=== PATIENT | female | born 1975 | race Caucasian/White ===

== ENCOUNTER 2017-06-24 20:39 | Emergency (ER) | payer BC ==
[~2017-06-24] VITALS: Ht 165.1 cm; Wt 56.8 kg
[~2017-06-24 20:39] MED LIST: AMT50 PO; CALCTAB7 PO; CLON0.1D7 TD; CLON0.5T20 PO; CYCL5TAB PO; KPP/250 PO; ONDA4TAB7 SL; PANT1TAB3 PO; PREG150C PO; PRM/625 PO; [UNRECOGNIZED DRUG - CODE] PO
[2017-06-24 20:42] VITALS: TEMP 36.8; Ht 165.1 cm; Wt 56.8 kg
[2017-06-24] MEDS ORDERED: ONDANSETRON INJ 2 MG/ML 2 ML VIAL IV STA (21:14)
[2017-06-24] MEDS ORDERED: SODIUM CHLORIDE 0.9% 1000ML 1,000 ML IV STA (21:14)
[2017-06-24] MEDS ORDERED: FENTANYL CITRATE INJ 50 MCG/1 ML 2 ML VIAL IV PRN (21:15)
[2017-06-24 22:06] LABS: ALT/SGPT 16 U/L (12-78); BLOOD UREA NITROGEN 10 mg/dl (7-18); BUN/CREATININE RATIO 15.5 (10-20); CALCIUM 9.1 mg/dl (8.5-10.1); CARBON DIOXIDE 27 mmol/L (21-32); CHLORIDE 103 mmol/L (98-107); CREATININE 0.65 mg/dl (0.60-1.20); GLUCOSE 92 mg/dl (70-99); POTASSIUM 3.6 mmol/L (3.5-5.1); SODIUM 137 mmol/L (136-145)
[2017-06-24 22:09] LABS: ALKALINE PHOSPHATASE 130 U/L (45-117); AST/SGOT 17 U/L (15-37)
[2017-06-24 22:10] LABS: URINE APPEARANCE CLEAR (CLEAR); URINE BILIRUBIN NEG (NEG); URINE COLOR YELLOW; URINE EPITHELIAL CELL AUTO 0-5 /lpf (0-5); URINE NITRITE NEG (NEG); URINE PH 7.5 (4.5-7.5); UROBILINOGEN NEG (NEG); ZZUR CULT IF INDIC CLEAN CATCH NO
[2017-06-24 22:17] LABS: HEMATOCRIT 29.5 % (37-47); MANUAL MICROSCOPIC REQUIRED? NO; MEAN CELL VOLUME 61.1 fL (80-100); MEAN CORPUSCULAR HGB CONC 27.8 g/dl (32-36); PLATELET COUNT 519 K/uL (130-400); RED BLOOD COUNT 4.83 M/uL (4.2-5.4); REVIEW REQ? NO; WHITE BLOOD COUNT 9.85 K/uL (4.8-10.8)
[2017-06-24 22:24] LABS: ANISOCYTOSIS PRESENT; BASO % 0.3 %; BASO ABS # 0.03 K/uL (0-0.2); COMPLETE YES; EOS % 1.5 %; HYPOCHROMIA PRESENT; IG% 0.1 %; LYMPH % 20.5 %; LYMPH ABS # 2.02 K/uL (1.2-3.4); MICROCYTOSIS PRESENT; MONO % 9.2 %; NEUT % 68.4 %
[2017-06-24] MEDS ORDERED: MoRPHine SULFATE 4 MG/ML 1 ML CARP\\VIAL IV STA (23:26)
[2017-06-24] MEDS ORDERED: TRAM-10 PO (23:30)
[2017-06-24] MEDS ORDERED: FERR1TAB13 PO (23:30)
--- NOTE | 2017-06-24 23:32 | EMERGENCY ROOM VISIT NOTE ---
History Report prepared by Eric: Shanice Brewster Under the Supervision of: Dr. Ildefonso Greenfield D.O. First contact with patient: 21:06 Chief Complaint: ABDOMINAL PAIN Stated Complaint: SEVERE ABD PAIN,VOMIT,IBARRA, BACK AND CHEST PAIN Nursing Triage Summary: pt states n/v and loss of appetite for 1 week. denies diarrhea now but states she had diarrhea 1 week ago. pt also c/o ibarra. states pain of 10/10 to bilateral lower abdomen. History of Present Illness The patient is a 41 year old female who presents to the Emergency Room with complaints of intermittent abdominal pain beginning 1 week ago. The patient states that she has been feeling sick intermittently throughout the week. She reports that she has had nausea, vomiting, diarrhea that has resolved, back pain , and abdominal cramping. She notes that she has had a decreased appetite. The patient denies any sick contacts and recent antibiotics. She reports that 3 days ago she had dysuria and thought that she might have a UTI but after drinking fluids her symptoms resolved. Source of History: patient Onset: 1 week ago Position: abdomen Timing: intermittent Associated Symptoms: + nausea, + vomiting, + back pain, + diarrhea Note: Pt denies sick contacts. Review of Systems See HPI for pertinent positives & negatives. A total of 10 systems reviewed and were otherwise negative. Past Medical & Surgical Medical Problems: (1) Gastroenteritis Family History No pertinent family history stated. Social History Smoking Status: Never Smoker Marital Status: Housing Status: lives with significant other Occupation Status: employed Current/Historical Medications Scheduled Ferrous Sulfate (Kp Ferrous Sulfate), 1 TAB PO BID Scheduled PRN Tramadol (Ultram), 100 MG PO Q4H PRN for Pain Allergies Coded Allergies: Penicillins (Verified Allergy, Mild, 06/24/17) Prochlorperazine (Verified Allergy, Mild, 06/24/17) Sulfa Drugs (Verified Allergy, Mild, 06/24/17) Sulfamethoxazole (Verified Allergy, Mild, 06/24/17) Trimethoprim (Verified Allergy, Mild, 06/24/17) Latex1 -Allergic Contact Dermititis (Verified Adverse Reaction, Intermediate, LOCAL RASH, ITCHINESS, 06/24/17) Clarithromycin (Verified Adverse Reaction, Mild, Unknown rxn, 06/24/17) Physical Exam Vital Signs Date Time Temp Pulse Resp B/P (MAP) Pulse Ox O2 Delivery O2 Flow Rate FiO2 12/16/17 20:42 36.8 87 18 150/78 98 Room Air Physical Exam CONSTITUTIONAL/VITAL SIGNS: Reviewed / noted above. GENERAL: Non-toxic in appearance. INTEGUMENTARY: Warm, dry, and [place]. HEAD: Normocephalic. EYES: without scleral icterus or trauma. ENT/OROPHARYNX: clear and moist. LYMPHADENOPATHY/NECK: Is supple without lymphadenopathy or meningismus. RESPIRATORY: Lungs clear and equal. CARDIOVASCULAR: Regular rate and rhythm. GI/ABDOMEN: Soft and mild diffuse abdominal tenderness. No organomegaly or pulsatile mass. No rebound or guarding. Normal bowel sounds. EXTREMITIES: Warm and well perfused. BACK: No CVA tenderness. NEUROLOGICAL: Intact without focal deficits. PSYCHIATRIC: normal affect. MUSCULOSKELETAL: Normally developed with good muscle tone. Medical Decision & Procedures Laboratory Results 06/24/17 21:30 Red Blood Count 4.83, Mean Corpuscular Volume 61.1, Mean Corpuscular Hemoglobin 17.0, Mean Corpuscular Hemoglobin Concent 27.8, Mean Platelet Volume 9.0, Neutrophils (%) (Auto) 68.4, Lymphocytes (%) (Auto) 20.5, Monocytes (%) (Auto) 9.2, Eosinophils (%) (Auto) 1.5, Basophils (%) (Auto) 0.3, Neutrophils # (Auto) 6.73, Lymphocytes # (Auto) 2.02, Monocytes # (Auto) 0.91, Eosinophils # (Auto) 0.15, Basophils # (Auto) 0.03 06/24/17 21:30 Test 06/24/17 21:30 White Blood Count 9.85 K/uL (4.8-10.8) Red Blood Count 4.83 M/uL (4.2-5.4) Hemoglobin 8.2 g/dL (12.0-16.0) Hematocrit 29.5 % (37-47) Mean Corpuscular Volume 61.1 fL (80-100) Mean Corpuscular Hemoglobin 17.0 pg (25-34) Mean Corpuscular Hemoglobin Concent 27.8 g/dl (32-36) Platelet Count 519 K/uL (130-400) Mean Platelet Volume 9.0 fL (7.4-10.4) Neutrophils (%) (Auto) 68.4 % Lymphocytes (%) (Auto) 20.5 % Monocytes (%) (Auto) 9.2 % Eosinophils (%) (Auto) 1.5 % Basophils (%) (Auto) 0.3 % Neutrophils # (Auto) 6.73 K/uL (1.4-6.5) Lymphocytes # (Auto) 2.02 K/uL (1.2-3.4) Monocytes # (Auto) 0.91 K/uL (0.11-0.59) Eosinophils # (Auto) 0.15 K/uL (0-0.5) Basophils # (Auto) 0.03 K/uL (0-0.2) RDW Standard Deviation 42.9 fL (36.4-46.3) RDW Coefficient of Variation 19.5 % (11.5-14.5) Immature Granulocyte % (Auto) 0.1 % Immature Granulocyte # (Auto) 0.01 K/uL (0.00-0.02) Hypochromasia PRESENT Anisocytosis PRESENT Microcytosis PRESENT Urine Color YELLOW Urine Appearance CLEAR (CLEAR) Urine pH 7.5 (4.5-7.5) Urine Specific [place] 1.010 (1.000-1.030) Urine Protein NEG (NEG) Urine Glucose (UA) NEG (NEG) Urine Ketones NEG (NEG) Urine Occult Blood NEG (NEG) Urine Nitrite NEG (NEG) Urine Bilirubin NEG (NEG) Urine Urobilinogen NEG (NEG) Urine Leukocyte Esterase TRACE (NEG) Urine WBC (Auto) 1-5 /hpf (0-5) Urine RBC (Auto) 0-4 /hpf (0-4) Urine Hyaline Casts (Auto) 0 /lpf (0-5) Urine Epithelial Cells (Auto) 0-5 /lpf (0-5) Urine Bacteria (Auto) NEG (NEG) Anion Gap 7.0 mmol/L (3-11) Est Creatinine Clear Calc Drug Dose 104.2 ml/min Estimated GFR () 129.6 Estimated GFR (Non- 111.8 BUN/Creatinine Ratio 15.5 (10-20) Calcium Level 9.1 mg/dl (8.5-10.1) Total Bilirubin 0.3 mg/dl (0.2-1) Direct Bilirubin < 0.1 mg/dl (0-0.2) Aspartate Amino Transf (AST/SGOT) 17 U/L (15-37) Alanine Aminotransferase (ALT/SGPT) 16 U/L (12-78) Alkaline Phosphatase 130 U/L (45-117) Total Protein 7.9 gm/dl (6.4-8.2) Albumin 3.7 gm/dl (3.4-5.0) Lipase 147 U/L (73-393) Medications Administered Medications (Trade) Dose Ordered Sig/Demetria Route Start Time Stop Time Status Last Admin Dose Admin Sodium Chloride 1,000 ml @ 999 mls/hr Q1H1M STAT IV 06/24/17 21:14 06/24/17 22:14 DC 06/24/17 21:46 999 MLS/HR Ondansetron HCl (Zofran Inj) 4 mg NOW STAT IV 06/24/17 21:14 06/24/17 21:17 DC 06/24/17 21:44 4 MG Fentanyl Citrate (Fentanyl Inj) 50 mcg Q1H PRN IV 06/24/17 21:15 07/08/17 21:14 06/24/17 21:43 50 MCG ED Course 6: Previous medical records were reviewed. The patient was evaluated in room B3. A complete history and physical examination was performed. 4: Zofran 4mg IV, Sodium Chloride 1000 ml @ 999 mls/hr IV, Fentanyl Inj 50mcg PRN IV pain. 2322: I reevaluated and updated the patient. 2326: Morphine Sulfate 4mg IV. 2334: On reevaluation, the patient is doing well. I discussed the results and findings with the patient. She verbalized agreement of the treatment plan. The patient was discharged home. Medical Decision Differential diagnosis: Etiologies such as gastroenteritis, food borne illness, infections, appendicitis , diverticulitis, inflammatory bowel disease, obstruction, GI bleed, biliary pathology, as well as others were entertained. This is a 41-year-old female who presents to the ED with a chief complaint of nausea, vomiting and diarrhea. The patient reports that she has had the symptoms for about a week. She states that her diarrhea and the last week that she developed vomiting since that time. She has had about 3 episodes per day. She has had decreased oral intake. She also reports some abdominal cramps. She denies any recent sick contacts. No recent antibiotics. She has history of hysterectomy. She also reports migraines and fibromyalgia. She denies any blood in her stools or black tarry stools. Denies any areas of bleeding. Her exam was unremarkable with exception of some mild diffuse abdominal tenderness. She reports most of her discomfort in the suprapubic area. She states that she did have some urinary symptoms earlier this week but it resolved after a show. A urinalysis does not show obvious infection. Hemoglobin is 8.2. Complete metabolic panel was normal. Lipase was normal. The anemia is a microcytic and hypochromic. This is consistent with an iron deficiency anemia. She denied having any blood or black tarry stools. She was started on iron. She was given IV fentanyl and IV morphine for discomfort. Because the pain is primarily in the suprapubic area and she has had hysterectomy, I did not feel imaging studies would be needed at this time although the patient was offered them. She declined them at this time as well. The patient will be discharged with a prescription for iron and Ultram for her discomfort. She is told to follow-up with her PCP for further evaluation of the iron deficiency anemia. Medication Reconcilliation Current Medication List: was personally reviewed by me Blood Pressure Screening Patient's blood pressure: Elevated blood pressure Blood pressure disposition: Elevated BP felt to be situational Impression Primary Impression: Iron deficiency anemia Additional Impressions: Pelvic pain Vomiting Scribe Attestation The scribe's documentation has been prepared under my direction and personally reviewed by me in its entirety. I confirm that the note above accurately reflects all work, treatment, procedures, and medical decision making performed by me. Departure Information Dispostion Home / Self-Care Prescriptions Tramadol (Ultram) 50 Mg Tab 100 MG PO Q4H Y for Pain, #30 TAB Prov: Ildefonso Greenfield D.O. 06/24/17 Ferrous Sulfate (KP FERROUS SULFATE) 325 Mg Tab 1 TAB PO BID for 30 Days, #60 TAB 3 Refills Prov: Ildefonso Greenfield D.O. 06/24/17 Referrals RV. Alcantara MD (PCP) Patient Instructions ED Anemia Iron Deficiency, [facility] Additional Instructions Take iron as prescribed for anemia. Ultram as prescribed for pain. Follow-up with your doctor for recheck this week and further evaluation of your anemia and symptoms. Return for worsening or new concerns. Problem Qualifiers
[2017-06-24 23:42] VITALS: BP 118/78; PULSE 76; O2SAT 98
== END 2017-06-24 23:42 | disposition home or self-care (01) ==
LOC: C.EDB 20:40
DX: D50.9 Iron deficiency anemia, unspecified (principal); R10.2 Pelvic and perineal pain; R11.10 Vomiting, unspecified; Z87.19 Personal history of other diseases of the digestive system; Z88.0 Allergy status to penicillin; Z88.2 Allergy status to sulfonamides; Z88.8 Allergy status to other drugs, medicaments and biological substances; Z91.040 Latex allergy status

== ENCOUNTER 2017-11-03 00:18 | Inpatient (IN) | payer BC, OTHER ==
[~2017-11-03] VITALS: Ht 165.1 cm; Wt 58.7 kg
[2017-11-03] VITALS (17 sets, daily range): BP systolic 103–125; BP diastolic 60–84; PULSE 72–89; TEMP 36.4–37.1; O2SAT 94–99; BMI 20.9
[~2017-11-03 00:18] MED LIST changes: -AMT50 PO; -CALCTAB7 PO; -CLON0.1D7 TD; -CLON0.5T20 PO; -CYCL5TAB PO; +FERR1TAB13 PO; -KPP/250 PO; -ONDA4TAB7 SL; -PANT1TAB3 PO; -PREG150C PO; -PRM/625 PO; +TRAM-10 PO; -[UNRECOGNIZED DRUG - CODE] PO
[2017-11-03] MEDS ORDERED: FENTANYL CITRATE INJ 50 MCG/1 ML 2 ML VIAL IV STA ×2 (00:42→01:55)
[2017-11-03] MEDS ORDERED: SODIUM CHLORIDE 0.9% 1000ML 1,000 ML IV STA (00:42)
[2017-11-03] MEDS ORDERED: ONDANSETRON INJ 2 MG/ML 2 ML VIAL IV STA ×2 (00:42)
[2017-11-03] MEDS ORDERED: FERR1TAB23 PO (00:54)
[2017-11-03] MEDS ORDERED: FEXO1TAB49 PO (00:54)
[2017-11-03] MEDS ORDERED: ONDA4TAB65 PO (00:54)
[2017-11-03] MEDS ORDERED: HYDR25CA PO (00:54)
--- NOTE | 2017-11-03 00:57 | EMERGENCY ROOM VISIT NOTE ---
History Report prepared by Eric: Vandana Morales Under the Supervision of: Dr. Filemon Weston M.D. First contact with patient: 00:33 Chief Complaint: VOMITING Stated Complaint: NAUSEA,VOMITING,FEVER,SEVERE BACK PAIN History of Present Illness The patient is a 41 year old female who presents to the Emergency Room with complaints of persistent back pain for five days. She currently rates her pain a 9/10 in severity. She reports her pain is worsened with movement. She notes that her back pain began first and then she developed abdominal pain two days ago. She reports nausea and vomiting that began two days ago as well. She notes that she has had fevers of 102 Fahrenheit for two days. She has taken Zofran, Tylenol, and Aleve. She states that she was seen by her PCP two days ago. She had lab tests done and a UA, though she has not been informed of the results. She states that she had labs done at [facility]. She denies any diarrhea, urinary symptoms, leg swelling, or rashes. She has not been able to pass stool for two days. She reports loss of appetite. She denies any history of stomach problems. She has a history of laparoscopic surgery for cysts and a hysterectomy. She has a history of depression and anxiety. She denies any history of back surgeries. She denies any sick contacts. She reports a history of fibromyalgia. She reports taking iron supplements. Source of History: patient Onset: five days Position: back Symptom Intensity: 9/10 Timing: other (persistent) Modifying Factors (Worsening): movement Associated Symptoms: + fevers, + nausea, + vomiting, + abdominal pain, No diarrhea, No urinary symptoms, No rash Note: Denies leg swelling. Notes constipation and loss of appetite. Review of Systems See HPI for pertinent positives & negatives. A total of 10 systems reviewed and were otherwise negative. Past Medical & Surgical Medical Problems: (1) Anxiety (2) Depression (3) Fibromyalgia (4) Gastroenteritis (5) laparoscopic surgery for cysts Surgical Problems: (1) H/O: hysterectomy Family History FHx: cancer Social History Smoking Status: Never Smoker Smokeless Tobacco Use: No Alcohol Use: none Drug Use: none Marital Status: Housing Status: lives with significant other Occupation Status: employed Current/Historical Medications Scheduled Ferrous Sulfate (Iron), 325 MG PO BID Hydroxyzine Pamoate (Vistaril), 25 MG PO DAILY Scheduled PRN Fexofenadine Hcl (Samreen Allergy), 180 MG PO DAILY PRN for Seasonal Allergies Ondansetron Hcl (Zofran), 4 MG PO BID PRN for Nausea or Vomiting Allergies Coded Allergies: Penicillins (Verified Allergy, Mild, 11/03/17) Prochlorperazine (Verified Allergy, Mild, 11/03/17) Sulfa Drugs (Verified Allergy, Mild, 11/03/17) Sulfamethoxazole (Verified Allergy, Mild, 11/03/17) Trimethoprim (Verified Allergy, Mild, 11/03/17) Latex1 -Allergic Contact Dermititis (Verified Adverse Reaction, Intermediate, LOCAL RASH, ITCHINESS, 11/03/17) Clarithromycin (Verified Adverse Reaction, Mild, Unknown rxn, 06/24/17) Physical Exam Vital Signs Date Time Temp Pulse Resp B/P (MAP) Pulse Ox O2 Delivery O2 Flow Rate FiO2 11/03/17 01:48 92 16 130/84 93 Room Air 11/03/17 00:25 36.8 111 22 166/87 99 Room Air Physical Exam GENERAL: Patient is anxious-appearing and in moderate distress. Dehydrated. EYES: No scleral icterus, unremarkable pupils. ENT: Mucous membranes dry, no nasal congestion. NECK: No masses appreciated, no meningismus, trachea is midline. RESPIRATORY: No dyspnea. Clear to auscultation and equal bilaterally. No wheeze , no rhonchi. CARDIOVASCULAR: Tachycardic rate and regular rhythm. No murmurs, rubs, gallops appreciated. GASTROINTESTINAL: Abdomen soft, LUQ and RLQ tenderness 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, no peritonitis. Bowel sounds positive. No masses appreciated. BACK: Tenderness 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 to paraspinal muscles and lumbar spine. Left CVA tenderness. EXTREMITIES: Normal motion all extremities, no cyanosis, no edema. NEUROLOGIC: Alert and oriented, no acute motor or sensory deficits, no focal weakness, cranial nerves grossly intact. SKIN: No rash, no jaundice, no diaphoresis. Medical Decision & Procedures ER Provider Diagnostic Interpretation: Radiology results and stated below per my review and radiologist interpretation: CT ABDOMEN & PELVIS With Contrast: Suggestion of gastric mucosal thickening and enhancement. Consider gastritis versus underdistention. No urolithiasis or hydronephrosis. Appendix is difficult to visualize, though there is no evidence of acute inflammation right lower quadrant. Prior hysterectomy. Radiologist: Daniel Moy DO Study ready at 01:48 and initial results transmitted at 02:04 Laboratory Results 11/03/17 00:40 Red Blood Count 4.48, Mean Corpuscular Volume 59.6, Mean Corpuscular Hemoglobin 16.7, Mean Corpuscular Hemoglobin Concent 28.1, Mean Platelet Volume 8.7, Neutrophils (%) (Auto) 78.5, Lymphocytes (%) (Auto) 14.0, Monocytes (%) (Auto) 5.9, Eosinophils (%) (Auto) 1.2, Basophils (%) (Auto) 0.3, Neutrophils # (Auto) 10.68, Lymphocytes # (Auto) 1.90, Monocytes # (Auto) 0.80, Eosinophils # (Auto) 0.16, Basophils # (Auto) 0.04 11/03/17 00:40 Test 11/03/17 00:40 11/03/17 00:50 White Blood Count 13.60 K/uL (4.8-10.8) Red Blood Count 4.48 M/uL (4.2-5.4) Hemoglobin 7.5 g/dL (12.0-16.0) Hematocrit 26.7 % (37-47) Mean Corpuscular Volume 59.6 fL (80-100) Mean Corpuscular Hemoglobin 16.7 pg (25-34) Mean Corpuscular Hemoglobin Concent 28.1 g/dl (32-36) Platelet Count 708 K/uL (130-400) Mean Platelet Volume 8.7 fL (7.4-10.4) Neutrophils (%) (Auto) 78.5 % Lymphocytes (%) (Auto) 14.0 % Monocytes (%) (Auto) 5.9 % Eosinophils (%) (Auto) 1.2 % Basophils (%) (Auto) 0.3 % Neutrophils # (Auto) 10.68 K/uL (1.4-6.5) Lymphocytes # (Auto) 1.90 K/uL (1.2-3.4) Monocytes # (Auto) 0.80 K/uL (0.11-0.59) Eosinophils # (Auto) 0.16 K/uL (0-0.5) Basophils # (Auto) 0.04 K/uL (0-0.2) RDW Standard Deviation 37.3 fL (36.4-46.3) RDW Coefficient of Variation 17.3 % (11.5-14.5) Immature Granulocyte % (Auto) 0.1 % Immature Granulocyte # (Auto) 0.02 K/uL (0.00-0.02) Hypochromasia PRESENT Microcytosis PRESENT Ovalocytes 1+ Est Creatinine Clear Calc Drug Dose 70.1 ml/min Estimated GFR () 85.3 Estimated GFR (Non- 73.6 BUN/Creatinine Ratio 18.9 (10-20) Calcium Level 9.6 mg/dl (8.5-10.1) Total Bilirubin 0.2 mg/dl (0.2-1) Direct Bilirubin < 0.1 mg/dl (0-0.2) Aspartate Amino Transf (AST/SGOT) 19 U/L (15-37) Alanine Aminotransferase (ALT/SGPT) 25 U/L (12-78) Alkaline Phosphatase 186 U/L (45-117) Total Protein 8.8 gm/dl (6.4-8.2) Albumin 3.5 gm/dl (3.4-5.0) Lipase 60 U/L (73-393) Bedside Hemoglobin 9.2 g/dl (12.0-16.0) Bedside Hematocrit 27 % (37-47) Bedside Sodium 138 mEq/L (135-144) Bedside Potassium 3.5 mEq/L (3.3-5.0) Bedside Chloride 99 mEq/L (101-112) Bedside Total CO2 26 mEq/l (24-31) Anion Gap 18.0 mmol/L (16-25) Bedside Blood Urea Nitrogen 18 mg/dl (7-18) Bedside Creatinine 0.9 mg/dl (0.6-1.3) Bedside Glucose (other) 120 mg/dl (70-99) Bedside Ionized Calcium (Jass) 1.15 mmol/l (1.12-1.32) Laboratory results as reviewed by me. Medications Administered Medications (Trade) Dose Ordered Sig/Demetria Route Start Time Stop Time Status Last Admin Dose Admin Ondansetron HCl (Zofran Inj) 4 mg NOW STAT IV 11/03/17 00:42 11/03/17 00:44 DC 11/03/17 01:02 4 MG Fentanyl Citrate (Fentanyl Inj) 75 mcg NOW STAT IV 11/03/17 00:42 11/03/17 00:44 DC 11/03/17 01:02 75 MCG Sodium Chloride 1,000 ml @ 999 mls/hr Q1H1M STAT IV 11/03/17 00:42 11/03/17 01:42 DC 11/03/17 01:02 999 MLS/HR Ondansetron HCl (Zofran Inj) 4 mg NOW STAT IV 11/03/17 00:42 11/03/17 00:44 DC 11/03/17 01:02 4 MG Fentanyl Citrate (Fentanyl Inj) 50 mcg NOW STAT IV 11/03/17 01:55 11/03/17 01:56 DC 11/03/17 02:06 50 MCG Lorazepam (Ativan Inj) 1 mg NOW STAT IV 11/03/17 01:55 11/03/17 01:56 DC 11/03/17 02:06 1 MG Pantoprazole Sodium 40 mg/ Syringe 10 ml @ 5 mls/min NOW ONCE IV 11/03/17 03:00 11/03/17 03:01 DC 11/03/17 03:51 5 MLS/MIN ED Course 0035: The patient was evaluated in room B11B. A complete history and physical exam was performed. 0252: I reassessed the patient at this time. She is somnolent. She currently rates her pain a 6/10 in severity and describes it as stabbing through to her back. I discussed the results and treatment plan with the patient. I spoke with her regarding her anemia; she denies it being this low in the past. I answered all pertaining questions that she had. She does not feel comfortable going home. She expressed understanding and verbalized agreement. The patient will be further evaluated. 0300: I spoke with Dr. Alejo, [facility] hospitalist. We discussed the patient's case. The patient will be evaluated by the [facility] for further management. Medical Decision Differential: Appendicitis, Diverticulitis, PUD/Gastritis, Biliary Pathology, UTI, Pyelonephritis, Renal Colic, Bowel Obstruction, Aortic Pathology, Acute Coronary Syndrome, amongst other pathologies entertained. 41 yr old quite anxious and uncomfortable female arrives for evaluation of persistent nausea, vomiting, abdominal pain, and back pain. Somewhat vague exam with pain LUQ and RLQ, as well as left CVA TTP and TTP over bilateral lumbar paraspinal muscles. More clear is that she appears dehydrated and quite uncomfortable. With persistent symptoms, reported fevers it was felt reasonable going ahead with CT which revealed gastric thickening. Continues to complain of pain despite IV fentanyl x 2 and requiring NC O2, as well as nausea finally improving post IV ativan and IV zofran ineffective. Her HgB returned quite low and trending down compared to previous labs, and I suspect it will be even lower once she is no longer dehydrated. She denies black stools but admits she does not think stool has ever been checked for blood. I did opt to give her IV Protonix and reviewed with hospitalist who note they will take further evaluation of patient. Patient and comfortable with this plan. Medication Reconcilliation Current Medication List: was personally reviewed by me Blood Pressure Screening Patient's blood pressure: Elevated blood pressure monitored by hospitalist Consults Time Called: 0255 Consulting Physician: Dr. Alejo [facility] hospitalist Returned Call: [address] Alejo [facility] hospitalist. We discussed the patient's case. The patient will be evaluated by the [facility] for further management. Impression Primary Impression: Intractable abdominal pain Additional Impressions: Gastritis Anemia Intractable vomiting Dehydration Scribe Attestation The scribe's documentation has been prepared under my direction and personally reviewed by me in its entirety. I confirm that the note above accurately reflects all work, treatment, procedures, and medical decision making performed by me. Departure Information Dispostion Being Evaluated By Hospitalist Referrals RV. Alcantara MD (PCP) Patient Instructions [facility] Problem Qualifiers
[2017-11-03] MEDS ORDERED: OPTIRAY 320 IV PRN (01:00)
[2017-11-03 01:03] LABS: ISTAT CREATININE 0.9 mg/dl (0.6-1.3); ISTAT IONIZED CALCIUM 1.15 mmol/l (1.12-1.32); ISTAT POTASSIUM 3.5 mEq/L (3.3-5.0)
[2017-11-03 01:17] LABS: ALBUMIN 3.5 gm/dl (3.4-5.0); ALT/SGPT 25 U/L (12-78); AST/SGOT 19 U/L (15-37); BLOOD UREA NITROGEN 18 mg/dl (7-18); CALCIUM 9.6 mg/dl (8.5-10.1); CARBON DIOXIDE 26 mmol/L (21-32); CREATININE 0.97 mg/dl (0.60-1.20); GLUCOSE 116 mg/dl (70-99); HEMATOCRIT 26.7 % (37-47); HEMOGLOBIN 7.5 g/dL (12.0-16.0); LIPASE 60 U/L (73-393); MEAN CELL VOLUME 59.6 fL (80-100); MEAN CORPUSCULAR HEMOGLOBIN 16.7 pg (25-34); MEAN CORPUSCULAR HGB CONC 28.1 g/dl (32-36); MEAN PLATELET VOLUME 8.7 fL (7.4-10.4); PLATELET COUNT 708 K/uL (130-400); POTASSIUM 3.4 mmol/L (3.5-5.1); RED CELL DISTRIBUTION WIDTH CV 17.3 % (11.5-14.5); RED CELL DISTRIBUTION WIDTH SD 37.3 fL (36.4-46.3); SODIUM 136 mmol/L (136-145)
[2017-11-03 01:19] LABS: ALKALINE PHOSPHATASE 186 U/L (45-117); TOTAL PROTEIN 8.8 gm/dl (6.4-8.2)
[2017-11-03 01:23] LABS: BASO % 0.3 %; BASO ABS # 0.04 K/uL (0-0.2); EOS % 1.2 %; EOS ABS # 0.16 K/uL (0-0.5); IG# 0.02 K/uL (0.00-0.02); MONO % 5.9 %; NEUT % 78.5 %; NEUT ABS # 10.68 K/uL (1.4-6.5)
[2017-11-03] MEDS ORDERED: LORAZEPAM 2 MG/ML 1 ML VIAL IV STA (01:55)
[2017-11-03] MEDS ORDERED: PANTOprazole INJ 40 MG in SYRINGE 0 ML IV ONE (03:00)
--- NOTE | 2017-11-03 03:56 | History and Physical ---
History & Physical Date & Time of Service: Nov 03, 2017 at 03:35 Chief Complaint: Nausea,Vomiting,Fever,Severe Back Pain Primary Care Physician: RV. Alcantara MD History of Present Illness Source: patient, hospital records 41 y/o F Hx migraines, chronic pain, iron-deficient anemia. Pt states she has had lower pain for over one week. She states that 2 days ago she also developed abdominal pain, nausea and vomiting. She reports a fever of 102 the prior day. She has not complained of CP, SOB, dysuria or rigors. She is afebrile on arrival to the ER. A CT of the abdomen suggested gastritis and was otherwise negative. Initial labs are notable for a hemoglobin of 7.5, elevated platelets, mild leukocytosis, mild hypokalemia. Past Medical/Surgical History 1) Migraine headaches 2) Depression/anxiety 3) Iron-deficient anemia 4) Chronic pain Family History FHx: cancer CVA - paternal grandmother Mother with HTN Social History Denies smoking or drinking Smoking Status: Never Smoker Smokeless Tobacco Use: No Drug Use: none Marital Status: Housing status: lives with family Occupational Status: employed Immunizations History of Influenza Vaccine: No History of Tetanus Vaccine?: Yes History of Pneumococcal: No History of Hepatitis B Vaccine: Unknown Allergies Coded Allergies: Penicillins (Verified Allergy, Mild, 11/03/17) Prochlorperazine (Verified Allergy, Mild, 11/03/17) Sulfa Drugs (Verified Allergy, Mild, 11/03/17) Sulfamethoxazole (Verified Allergy, Mild, 11/03/17) Trimethoprim (Verified Allergy, Mild, 11/03/17) Latex1 -Allergic Contact Dermititis (Verified Adverse Reaction, Intermediate, LOCAL RASH, ITCHINESS, 11/03/17) Clarithromycin (Verified Adverse Reaction, Mild, Unknown rxn, 06/24/17) Home Medications Scheduled Ferrous Sulfate (Iron), 325 MG PO BID Hydroxyzine Pamoate (Vistaril), 25 MG PO DAILY Scheduled PRN Fexofenadine Hcl (Samreen Allergy), 180 MG PO DAILY PRN for Seasonal Allergies Ondansetron Hcl (Zofran), 4 MG PO BID PRN for Nausea or Vomiting Review of Systems Constitutional: + fever, + weakness, No chills, No sweats Eyes: No worsening of vision ENT: No hearing loss, No unusual epistaxis, No nasal symptoms Respiratory: No cough, No sputum, No wheezing Cardiovascular: No chest pain, No orthopnea, No PND Abdomen: + pain, + nausea, + vomiting Musculoskeletal: No joint pain Genitourinary - Female: No dysuria, No urinary frequency, No urinary urgency Neurologic: + weakness, No memory loss, No paralysis Hematologic / Lymphatic: No abnormal bleeding/bruising Integumentary: No rash Allergic / Immunologic: + environmental allergies Physical Exam Vital Signs Date Time Temp Pulse Resp B/P (MAP) Pulse Ox O2 Delivery O2 Flow Rate FiO2 11/03/17 01:48 92 16 130/84 93 Room Air 11/03/17 00:25 36.8 111 22 166/87 99 Room Air General Appearance: + pertinent finding (Pale, thin, young female - displays lethargy - no overt distress) Head: normocephalic Eyes: normal inspection ENT: normal ENT inspection, pharynx normal Neck: supple, no JVD Respiratory/Chest: chest non-tender, lungs clear, normal breath sounds Cardiovascular: regular rate, rhythm, no edema Abdomen/GI: normal bowel sounds, non tender, soft Back: normal inspection, no CVA tenderness Extremities/Musculoskelatal: normal inspection, no calf tenderness 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, no motor/sensory deficits, alert, oriented x 3 Skin: + pallor Diagnostics Laboratory Results Results Past 24 Hours Test 11/03/17 00:40 11/03/17 00:50 Range/Units White Blood Count 13.60 4.8-10.8 K/uL Red Blood Count 4.48 4.2-5.4 M/uL Hemoglobin 7.5 12.0-16.0 g/dL Hematocrit 26.7 37-47 % Mean Corpuscular Volume 59.6 80-100 fL Mean Corpuscular Hemoglobin 16.7 25-34 pg Mean Corpuscular Hemoglobin Concent 28.1 32-36 g/dl Platelet Count 708 130-400 K/uL Mean Platelet Volume 8.7 7.4-10.4 fL Neutrophils (%) (Auto) 78.5 % Lymphocytes (%) (Auto) 14.0 % Monocytes (%) (Auto) 5.9 % Eosinophils (%) (Auto) 1.2 % Basophils (%) (Auto) 0.3 % Neutrophils # (Auto) 10.68 1.4-6.5 K/uL Lymphocytes # (Auto) 1.90 1.2-3.4 K/uL Monocytes # (Auto) 0.80 0.11-0.59 K/uL Eosinophils # (Auto) 0.16 0-0.5 K/uL Basophils # (Auto) 0.04 0-0.2 K/uL RDW Standard Deviation 37.3 36.4-46.3 fL RDW Coefficient of Variation 17.3 11.5-14.5 % Immature Granulocyte % (Auto) 0.1 % Immature Granulocyte # (Auto) 0.02 0.00-0.02 K/uL Hypochromasia PRESENT Microcytosis PRESENT Ovalocytes 1+ Sodium Level 136 136-145 mmol/L Potassium Level 3.4 3.5-5.1 mmol/L Chloride Level 101 98-107 mmol/L Carbon Dioxide Level 26 21-32 mmol/L Anion Gap 9.0 18.0 16-25 mmol/L Blood Urea Nitrogen 18 7-18 mg/dl Creatinine 0.97 0.60-1.20 mg/dl Est Creatinine Clear Calc Drug Dose 70.1 ml/min Estimated GFR () 85.3 Estimated GFR (Non- 73.6 BUN/Creatinine Ratio 18.9 10-20 Random Glucose 116 70-99 mg/dl Calcium Level 9.6 8.5-10.1 mg/dl Total Bilirubin 0.2 0.2-1 mg/dl Direct Bilirubin < 0.1 0-0.2 mg/dl Aspartate Amino Transf (AST/SGOT) 19 15-37 U/L Alanine Aminotransferase (ALT/SGPT) 25 12-78 U/L Alkaline Phosphatase 186 45-117 U/L Total Protein 8.8 6.4-8.2 gm/dl Albumin 3.5 3.4-5.0 gm/dl Lipase 60 73-393 U/L Bedside Hemoglobin 9.2 12.0-16.0 g/dl Bedside Hematocrit 27 37-47 % Bedside Sodium 138 135-144 mEq/L Bedside Potassium 3.5 3.3-5.0 mEq/L Bedside Chloride 99 101-112 mEq/L Bedside Total CO2 26 24-31 mEq/l Bedside Blood Urea Nitrogen 18 7-18 mg/dl Bedside Creatinine 0.9 0.6-1.3 mg/dl Bedside Glucose (other) 120 70-99 mg/dl Bedside Ionized Calcium (Jass) 1.15 1.12-1.32 mmol/l Diagnostic Radiology CT abdomen: gastritis present Impression Assessment and Plan 41 y/o F Hx migraines, chronic pain, iron-deficient anemia. Pt states she has had lower pain for over one week. She states that 2 days ago she also developed abdominal pain, nausea and vomiting. She reports a fever of 102 the prior day. She has not complained of CP, SOB, dysuria or rigors. She is afebrile on arrival to the ER. A CT of the abdomen suggested gastritis and was otherwise negative. Initial labs are notable for a hemoglobin of 7.5, elevated platelets, mild leukocytosis, mild hypokalemia. 1) Anemia - no evidence of acute bleed - gastritis is seen on CT which may be acute. We will order iron studies and trend her Hb. A GI consult is requested , stool guaiac is pending. She is NPO pending AM eval. IV PPi provided. 2) Nausea, vomiting, fever - a UA is pending - exam and imaging are not consistent with pyelo - will hold antibiotics presently - consider empiric treatment if fever recurs. 3) Back pain - chronic - consider ortho eval if this does not improve 4) Hypokalemia - repleted Full code - SCDs Total time for this admit including review of labs, meds, imaging, records - discussion with pt and ER attending - 37 min Resuscitation Status VTE Prophylaxis Will order VTE Prophylaxis: Yes Reason no Mechanical VTE Order: Contraindicated
[2017-11-03] MEDS ORDERED: MAGNESIUM SULFATE 1GM / D5W 100 ML IV STA (04:50)
[2017-11-03] MEDS ORDERED: D5NSS + 20MEQ KCL 1,000 ML IV SCH (05:00)
[2017-11-03] MEDS: POTASSIUM CHLR 10 MEQ / WTR 100 ML IV SCH ×2 (05:48→08:02)
--- NOTE | 2017-11-03 07:09 | DIAGNOSTIC IMAGING REPORT ---
ABDOMEN AND PELVIS CT WITH IV CONTRAST CT DOSE: 278.97 mGy.cm HISTORY: left flank pain, RLQ pain, n/v/fever. ho Hysterectomy TECHNIQUE: Multiaxial CT images of the abdomen and pelvis were performed following the use of intravenous contrast. A dose lowering technique was utilized adhering to the principles of ALARA. COMPARISON STUDY: Abdomen and pelvis CT 10/28/2013. FINDINGS: The lung bases are clear. No pneumoperitoneum. No pneumatosis. No suspicious lytic or blastic osseous lesions. The liver, spleen, adrenal glands, pancreas, and kidneys are unremarkable. Small nodular focus of enhancement at the gallbladder fundus. This favors adenomyomatosis. The uterus is surgically absent. Normal bladder. No evidence for bowel obstruction. The appendix is clearly identified. This could be surgically absent given the patient's history of hysterectomy. Moderate edema within the proximal to mid gastric wall. Multiple mildly enlarged perigastric lymph nodes. IMPRESSION: 1. Moderate thickening of the proximal to mid gastric wall consistent with a gastritis. Multiple mildly enlarged perigastric lymph nodes. These are likely reactive. Endoscopy is recommended for further evaluation to evaluate the cause of the gastric wall thickening. 2. The appendix not identified but is likely surgically absent given the patient's history of hysterectomy. Electronically signed by: David Prado M.D. 11/03/2017 7:08 AM Dictated Date/Time: 11/03/2017 7:02 AM
[2017-11-03] MEDS: ACETAMINOPHEN 325 MG TAB PO PRN ×2 (09:00→23:39)
[2017-11-03] MEDS: hydrOXYzine HCL 25 MG TAB PO SCH (09:00)
--- NOTE | 2017-11-03 09:43 | Gastrointestinal Consultation ---
Gastrointestinal Consultation Date of Consultation: Nov 03, 2017 Attending Physician: Dr. Alejo Consulting Physician: Christin Nair PA-C Reason for Consultation: abnormal CT stomach, anemia History of Present Illness Patient is a 41 year old female with a past medical history of migraines, depression, anxiety, KARLOS, & chronic pain who presented to the hospital with abdominal pain for over 1 week. She reports that her pain continued to worsen, but she eventually developed nausea and vomiting. She reports that prior to admission she had been taking daily NSAIDs. She reported a fever but is afebrile here. She denies a change in her bowel habits. She reports decreased po intake. She denies any other acute symptoms at present. She denies family history of IBD or GI malignancy. She has never had any GI testing previously as this is her first issue with stomach issues. Her labs initially indicated a hemoglobin and hematocrit of 7.5/26.7. This morning her hemoglobin was 6.3. A CT scan indicated thickening of the gastric wall and possible reactive lymph nodes surrounding the stomach. The radiologist recommended endoscopic evaluation. She offers no further complaints. She is NPO at present. Past Medical/Surgical History Medical Problems: (1) Anemia Status: Acute (2) Dehydration Status: Acute (3) Gastritis Status: Acute (4) Intractable abdominal pain Status: Acute (5) Intractable vomiting Status: Acute (6) Iron deficiency anemia Status: Acute (7) Pelvic pain Status: Acute (8) Vomiting Status: Acute Past Medical History: Migraines, depression, anxiety, KARLOS, & chronic pain Past Surgical History: denies Family History FHx: cancer Social History Smoking Status: Former Smoker Alcohol Use: none Drug Use: none Marital Status: Housing Status: lives with significant other Occupation Status: employed Allergies Coded Allergies: Penicillins (Verified Allergy, Mild, 11/03/17) Prochlorperazine (Verified Allergy, Mild, 11/03/17) Sulfa Drugs (Verified Allergy, Mild, 11/03/17) Sulfamethoxazole (Verified Allergy, Mild, 11/03/17) Trimethoprim (Verified Allergy, Mild, 11/03/17) Latex1 -Allergic Contact Dermititis (Verified Adverse Reaction, Intermediate, LOCAL RASH, ITCHINESS, 11/03/17) Clarithromycin (Verified Adverse Reaction, Mild, Unknown rxn, 06/24/17) Current Medications Home Meds and Scripts Medications Dose Route/Sig Max Daily Dose Days Date Category Zofran (Ondansetron Hcl) 4 Mg Tab 4 Mg PO BID PRN 11/03/17 Reported Samreen Allergy (Fexofenadine Hcl) 180 Mg Tab 180 Mg PO DAILY PRN 14 11/03/17 Reported Iron (Ferrous Sulfate) 325 Mg Tab 325 Mg PO BID 11/03/17 Reported Vistaril (Hydroxyzine Pamoate) 25 Mg Cap 25 Mg PO DAILY 30 11/03/17 Reported Review of Systems Constitutional: No fever, No chills Eyes: No problem reported Respiratory: No cough, No shortness of breath, No dyspnea on exertion Cardiac: No chest pain Abdomen: + pain, + nausea, + vomiting, No diarrhea, No constipation, No GI bleeding Musculoskeletal: No joint pain Psych: + depression symptoms, + anxiety Heme: No problem reported Endo: No problem reported Skin: No problem reported Physical Exam Date Time Temp Pulse Resp B/P (MAP) Pulse Ox O2 Delivery O2 Flow Rate FiO2 11/03/17 08:00 Room Air 11/03/17 07:50 36.4 79 16 108/70 (83) 99 Room Air 11/03/17 04:26 37.1 80 20 117/74 95 Room Air 11/03/17 04:03 36.9 81 16 117/75 97 11/03/17 03:42 36.9 81 117/75 97 Room Air 11/03/17 01:48 92 16 130/84 93 Room Air 11/03/17 00:25 36.8 111 22 166/87 99 Room Air General Appearance: WD/WN, no apparent distress Eyes: normal inspection, PERRL ENT: hearing grossly normal Respiratory/Chest: lungs clear, normal breath sounds Cardiovascular: regular rate, rhythm Abdomen: normal bowel sounds, non tender, soft Extremities: non-tender Neurologic/Psych: alert, oriented x 3 Skin: normal color Laboratory Results Last 24 Hours Test 11/03/17 00:40 11/03/17 00:50 11/03/17 03:50 11/03/17 08:05 White Blood Count 13.60 K/uL Red Blood Count 4.48 M/uL Hemoglobin 7.5 g/dL 6.3 g/dL Hematocrit 26.7 % Mean Corpuscular Volume 59.6 fL Mean Corpuscular Hemoglobin 16.7 pg Mean Corpuscular Hemoglobin Concent 28.1 g/dl Platelet Count 708 K/uL Mean Platelet Volume 8.7 fL Neutrophils (%) (Auto) 78.5 % Lymphocytes (%) (Auto) 14.0 % Monocytes (%) (Auto) 5.9 % Eosinophils (%) (Auto) 1.2 % Basophils (%) (Auto) 0.3 % Neutrophils # (Auto) 10.68 K/uL Lymphocytes # (Auto) 1.90 K/uL Monocytes # (Auto) 0.80 K/uL Eosinophils # (Auto) 0.16 K/uL Basophils # (Auto) 0.04 K/uL RDW Standard Deviation 37.3 fL RDW Coefficient of Variation 17.3 % Immature Granulocyte % (Auto) 0.1 % Immature Granulocyte # (Auto) 0.02 K/uL Hypochromasia PRESENT Microcytosis PRESENT Ovalocytes 1+ Sodium Level 136 mmol/L Potassium Level 3.4 mmol/L Chloride Level 101 mmol/L Carbon Dioxide Level 26 mmol/L Anion Gap 9.0 mmol/L 18.0 mmol/L Blood Urea Nitrogen 18 mg/dl Creatinine 0.97 mg/dl Est Creatinine Clear Calc Drug Dose 70.1 ml/min Estimated GFR () 85.3 Estimated GFR (Non- 73.6 BUN/Creatinine Ratio 18.9 Random Glucose 116 mg/dl Calcium Level 9.6 mg/dl Total Bilirubin 0.2 mg/dl Direct Bilirubin < 0.1 mg/dl Aspartate Amino Transf (AST/SGOT) 19 U/L Alanine Aminotransferase (ALT/SGPT) 25 U/L Alkaline Phosphatase 186 U/L Total Protein 8.8 gm/dl Albumin 3.5 gm/dl Lipase 60 U/L Bedside Hemoglobin 9.2 g/dl Bedside Hematocrit 27 % Bedside Sodium 138 mEq/L Bedside Potassium 3.5 mEq/L Bedside Chloride 99 mEq/L Bedside Total CO2 26 mEq/l Bedside Blood Urea Nitrogen 18 mg/dl Bedside Creatinine 0.9 mg/dl Bedside Glucose (other) 120 mg/dl Bedside Ionized Calcium (Jass) 1.15 mmol/l Urine Color YELLOW Urine Appearance CLEAR Urine pH 5.0 Urine Specific [place] > 1.045 Urine Protein NEG Urine Glucose (UA) NEG Urine Ketones NEG Urine Occult Blood NEG Urine Nitrite POS Urine Bilirubin NEG Urine Urobilinogen NEG Urine Leukocyte Esterase SMALL Urine WBC (Auto) 10-30 /hpf Urine RBC (Auto) 0-4 /hpf Urine Hyaline Casts (Auto) 1-5 /lpf Urine Epithelial Cells (Auto) 0-5 /lpf Urine Bacteria (Auto) 4+ Iron Level 10 mcg/dl Total Iron Binding Capacity 335 mcg/dl Impression Patient is a 41 year old female with abdominal pain, nausea, & vomiting who presents with anemia and CT findings of gastric abnormalities. Plan 1) Protonix 40 mg BID. 2) Repeat hemoglobin as it has dropped this AM. Based on repeat value, will defer decisions regarding transfusion per primary team. 3) Keep NPO. Will need EGD for further evaluation of CT findings, symptoms, and anemia. Thank you for allowing us to participate in the care of this patient. If you should have any further questions or concerns, do not hesitate to contact us. Agree with TANNER Salamanca as above Abd: Soft, NT, ND, +BS Continue current therapy EGD today for further evaluation
[2017-11-03] MEDS ORDERED: PANTOprazole INJ 40 MG in SYRINGE 0 ML IV SCH (11:00)
[2017-11-03 11:54] LABS: HEMATOCRIT 22.8 % (37-47); HEMOGLOBIN 6.3 g/dL (12.0-16.0); MEAN CELL VOLUME 59.5 fL (80-100); MEAN CORPUSCULAR HEMOGLOBIN 16.4 pg (25-34); MEAN CORPUSCULAR HGB CONC 27.6 g/dl (32-36); MEAN PLATELET VOLUME 8.6 fL (7.4-10.4); PLATELET COUNT 532 K/uL (130-400); RED CELL DISTRIBUTION WIDTH CV 17.2 % (11.5-14.5); RED CELL DISTRIBUTION WIDTH SD 37.7 fL (36.4-46.3); WHITE BLOOD COUNT 8.56 K/uL (4.8-10.8)
[2017-11-03 12:04] LABS: BASO % 0.4 %; BASO ABS # 0.03 K/uL (0-0.2); CALCIUM 8.3 mg/dl (8.5-10.1); CREATININE 0.67 mg/dl (0.60-1.20); EOS % 2.2 %; EOS ABS # 0.19 K/uL (0-0.5); IG# 0.01 K/uL (0.00-0.02); LYMPH % 20.6 %; LYMPH ABS # 1.76 K/uL (1.2-3.4); MONO % 9.1 %; MONO ABS # 0.78 K/uL (0.11-0.59); NEUT % 67.6 %; NEUT ABS # 5.79 K/uL (1.4-6.5); PHOSPHORUS 3.2 mg/dl (2.5-4.9); POTASSIUM 3.9 mmol/L (3.5-5.1)
--- NOTE | 2017-11-03 14:52 | Progress Note ---
Subjective Date of Service: Nov 03, 2017. Subjective Pt evaluation today including: conversation w/ patient, physical exam, chart review, lab review, review of studies, conversation w/ sr. consultant, review of inpatient medication list Significant tired, pale, denies chest pain palpitation, denies shortness of breath, Problem List Medical Problems: (1) Anemia Status: Acute (2) Dehydration Status: Acute (3) Gastritis Status: Acute (4) Intractable abdominal pain Status: Acute (5) Intractable vomiting Status: Acute (6) Iron deficiency anemia Status: Acute (7) Pelvic pain Status: Acute (8) Vomiting Status: Acute Review of Systems Constitutional: + weakness, + fatigue, No fever, No chills, No sweats, No weight loss, No problem reported Eyes: No worsening of vision, No eye pain, No redness, No discharge, No diplopia ENT: No hearing loss, No unusual epistaxis, No nasal symptoms, No sore throat, No tinnitus, No dental problems, No trouble swallowing Respiratory: No cough, No sputum, No wheezing, No shortness of breath, No dyspnea on exertion, No dyspnea at rest, No hemoptysis Cardiac: No chest pain, No orthopnea, No PND, No edema, No claudication, No palpitations Abdomen: No pain, No nausea, No vomiting, No diarrhea, No constipation Musculoskeletal: No joint pain, No muscle pain, No swelling, No calf pain Female : No dysuria, No urinary frequency, No hematuria, No incontinence, No abnormal vaginal bleeding, No vaginal discharge Neurologic: No memory loss, No paralysis, No weakness, No numbness/tingling, No vertigo, No balance problems Psychiatric: No depression symptoms, No anhedonism, No anxiety, No insomnia, No substance abuse Heme: No abnormal bleeding/bruising, No clotting problems, No swollen lymph nodes, No night sweats Endo: No fatigue, No excessive thirst, No excessive urination Skin: No rash, No itch, No new/changing skin lesions, No color change, No bleeding Objective Vital Signs Date Time Temp Pulse Resp B/P (MAP) Pulse Ox O2 Delivery O2 Flow Rate FiO2 11/03/17 14:19 36.7 73 16 103/67 11/03/17 13:15 36.9 83 16 119/70 99 11/03/17 12:48 36.9 88 16 106/68 11/03/17 12:33 37.0 85 16 108/69 97 11/03/17 12:15 36.5 77 16 107/70 96 11/03/17 08:00 Room Air 11/03/17 07:50 36.4 79 16 108/70 (83) 99 Room Air 11/03/17 04:26 37.1 80 20 117/74 95 Room Air 11/03/17 04:03 36.9 81 16 117/75 97 11/03/17 03:42 36.9 81 117/75 97 Room Air 11/03/17 01:48 92 16 130/84 93 Room Air 11/03/17 00:25 36.8 111 22 166/87 99 Room Air Physical Exam General Appearance: WD/WN, no apparent distress, + thin, + pertinent finding ( Frail, chronically ill looking, very pale) Eyes: normal inspection, PERRL, EOMI, sclerae normal ENT: normal ENT inspection, hearing grossly normal, pharynx normal Neck: supple, no adenopathy, thyroid normal, no JVD, no carotid bruits, trachea midline Respiratory/Chest: chest non-tender, lungs clear, normal breath sounds, no respiratory distress, no accessory muscle use Cardiovascular: regular rate, rhythm, no edema, no gallop, no JVD, no murmur Abdomen: normal bowel sounds, non tender, soft, no organomegaly, no pulsatile mass Extremities: normal range of motion, non-tender, normal inspection, no pedal edema, no calf tenderness, normal capillary refill, pelvis stable 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, no motor/sensory deficits, alert, normal mood/affect, oriented x 3 Skin: normal color, warm/dry, no rash Lymphatic: no adenopathy Laboratory Results Last 24 Hours Test 11/03/17 00:40 11/03/17 00:50 11/03/17 03:50 11/03/17 08:05 White Blood Count 13.60 K/uL Red Blood Count 4.48 M/uL Hemoglobin 7.5 g/dL 6.3 g/dL Hematocrit 26.7 % Mean Corpuscular Volume 59.6 fL Mean Corpuscular Hemoglobin 16.7 pg Mean Corpuscular Hemoglobin Concent 28.1 g/dl Platelet Count 708 K/uL Mean Platelet Volume 8.7 fL Neutrophils (%) (Auto) 78.5 % Lymphocytes (%) (Auto) 14.0 % Monocytes (%) (Auto) 5.9 % Eosinophils (%) (Auto) 1.2 % Basophils (%) (Auto) 0.3 % Neutrophils # (Auto) 10.68 K/uL Lymphocytes # (Auto) 1.90 K/uL Monocytes # (Auto) 0.80 K/uL Eosinophils # (Auto) 0.16 K/uL Basophils # (Auto) 0.04 K/uL RDW Standard Deviation 37.3 fL RDW Coefficient of Variation 17.3 % Immature Granulocyte % (Auto) 0.1 % Immature Granulocyte # (Auto) 0.02 K/uL Hypochromasia PRESENT Microcytosis PRESENT Ovalocytes 1+ Sodium Level 136 mmol/L Potassium Level 3.4 mmol/L Chloride Level 101 mmol/L Carbon Dioxide Level 26 mmol/L Anion Gap 9.0 mmol/L 18.0 mmol/L Blood Urea Nitrogen 18 mg/dl Creatinine 0.97 mg/dl Est Creatinine Clear Calc Drug Dose 70.1 ml/min Estimated GFR () 85.3 Estimated GFR (Non- 73.6 BUN/Creatinine Ratio 18.9 Random Glucose 116 mg/dl Calcium Level 9.6 mg/dl Total Bilirubin 0.2 mg/dl Direct Bilirubin < 0.1 mg/dl Aspartate Amino Transf (AST/SGOT) 19 U/L Alanine Aminotransferase (ALT/SGPT) 25 U/L Alkaline Phosphatase 186 U/L Total Protein 8.8 gm/dl Albumin 3.5 gm/dl Lipase 60 U/L Bedside Hemoglobin 9.2 g/dl Bedside Hematocrit 27 % Bedside Sodium 138 mEq/L Bedside Potassium 3.5 mEq/L Bedside Chloride 99 mEq/L Bedside Total CO2 26 mEq/l Bedside Blood Urea Nitrogen 18 mg/dl Bedside Creatinine 0.9 mg/dl Bedside Glucose (other) 120 mg/dl Bedside Ionized Calcium (Jass) 1.15 mmol/l Urine Color YELLOW Urine Appearance CLEAR Urine pH 5.0 Urine Specific [place] > 1.045 Urine Protein NEG Urine Glucose (UA) NEG Urine Ketones NEG Urine Occult Blood NEG Urine Nitrite POS Urine Bilirubin NEG Urine Urobilinogen NEG Urine Leukocyte Esterase SMALL Urine WBC (Auto) 10-30 /hpf Urine RBC (Auto) 0-4 /hpf Urine Hyaline Casts (Auto) 1-5 /lpf Urine Epithelial Cells (Auto) 0-5 /lpf Urine Bacteria (Auto) 4+ Iron Level 10 mcg/dl Total Iron Binding Capacity 335 mcg/dl Test 11/03/17 11:15 11/03/17 11:34 Hemoglobin 6.0 g/dL 6.3 g/dL White Blood Count 8.56 K/uL Red Blood Count 3.83 M/uL Hematocrit 22.8 % Mean Corpuscular Volume 59.5 fL Mean Corpuscular Hemoglobin 16.4 pg Mean Corpuscular Hemoglobin Concent 27.6 g/dl Platelet Count 532 K/uL Mean Platelet Volume 8.6 fL Neutrophils (%) (Auto) 67.6 % Lymphocytes (%) (Auto) 20.6 % Monocytes (%) (Auto) 9.1 % Eosinophils (%) (Auto) 2.2 % Basophils (%) (Auto) 0.4 % Neutrophils # (Auto) 5.79 K/uL Lymphocytes # (Auto) 1.76 K/uL Monocytes # (Auto) 0.78 K/uL Eosinophils # (Auto) 0.19 K/uL Basophils # (Auto) 0.03 K/uL RDW Standard Deviation 37.7 fL RDW Coefficient of Variation 17.2 % Immature Granulocyte % (Auto) 0.1 % Immature Granulocyte # (Auto) 0.01 K/uL Hypersegmented Polys 1+ Hypochromasia PRESENT Microcytosis PRESENT Sodium Level 137 mmol/L Potassium Level 3.9 mmol/L Chloride Level 106 mmol/L Carbon Dioxide Level 27 mmol/L Anion Gap 4.0 mmol/L Blood Urea Nitrogen 11 mg/dl Creatinine 0.67 mg/dl Est Creatinine Clear Calc Drug Dose 101.4 ml/min Estimated GFR () 128.3 Estimated GFR (Non- 110.7 BUN/Creatinine Ratio 16.5 Random Glucose 93 mg/dl Calcium Level 8.3 mg/dl Phosphorus Level 3.2 mg/dl Magnesium Level 2.5 mg/dl Assessment and Plan 41 y/o F Hx migraines, chronic pain, iron-deficient anemia admitted because of severe anemia possible GI bleeding severe anemia possible GI bleeding with hemoglobin repeated at 6 Likely from GI bleeding which caused by NSAID gastritis per abdominal CT Chronic back pain - Hypokalemia - replaced History of hysterectomy Possible UTI, patient is asymptomatic, do not need treatment for now Transferred to telemetry, better monitoring, transfuse 2 unit packed RBC, continue Protonix IV, follow-up GI consult, planning to EGD today, Continue supportive care, discussed with patient answer all her questions, SCD for DVT prophylaxis, GI prophylaxis is covered, patient is full Continued [facility] stay due to: multiple IV medications needed Discharge planning: uncertain
[2017-11-03] MEDS ORDERED: ONDANSETRON INJ 2 MG/ML 2 ML VIAL ONE ×2 (15:26→16:58)
[2017-11-03] MEDS ORDERED: METOCLOPRAMIDE HCL INJ 5 MG/ML 2 ML VIAL IV. ONE (15:45)
[2017-11-03] MEDS ORDERED: MIDAZOLAM HCL 1 MG/ML 2ML VIAL ONE (15:52)
[2017-11-03] MEDS ORDERED: FENTANYL CITRATE INJ 50 MCG/1 ML 2 ML VIAL ONE (15:53)
[2017-11-03] MEDS ORDERED: ATROPINE SULFATE 0.1 MG/ML 5ML SYR IV PRN (16:00)
[2017-11-03] MEDS ORDERED: ONDANSETRON INJ 2 MG/ML 2 ML VIAL IV PRN (16:00)
[2017-11-03] MEDS ORDERED: EpHEDrine SULFATE INJ 50 MG/ML AMP IV PRN (16:00)
[2017-11-03] MEDS ORDERED: FENTANYL CITRATE INJ 50 MCG/1 ML 2 ML VIAL IV PRN (16:00)
--- NOTE | 2017-11-03 16:41 | [facility] Post Operative Brief Note ---
Immediate Operative Summary Operative Date Nov 03, 2017. Pre-Operative Diagnosis Acute Blood loss anemia Post-Operative Diagnosis 1) Large Gastric ulcer 2) Esophagitis Procedure(s) Performed EGD with Epinephrine injection to ulcer base, Gold Heater probe therapy and Gastric antrum biopsies Surgeon Surveillance Monitor Surgeon(s) Ricky Morrison Estimated Blood Loss 10 ml Findings 1) Gastric ulcer s/p epinephrine injection and gold heater probe therapy 2) Gastritis s/p biopsies 3) Esophagitis Specimens Gastric antrum biopsies Anesthesia General Complication(s) None Disposition Recovery Room / PACU
[2017-11-03] MEDS ORDERED: PROPOFOL IV EMULSION 10 MG/ML 20 ML VIAL IV ONE (16:58)
[2017-11-03] MEDS ORDERED: LIDOCAINE HCL 2% 2 ML VIAL (20MG/ML) ONE (16:58)
--- NOTE | 2017-11-03 17:22 | GI REPORT ---
Patient Name: Hillary Parker Procedure Date: 11/03/2017 3:26 PM Date of : 1975 Admit Type: Inpatient Age: 41 Gender: Female Attending MD: George Blanchard DO Procedure: Upper GI endoscopy Providers: George Blanchard DO Referring MD: Filemon Smith Indications: Epigastric abdominal pain, Acute post hemorrhagic anemia, Abnormal CT of the GI tract Medicines: General Anesthesia Complications: No immediate complications. Estimated Blood Loss: Estimated blood loss: none. Procedure: Pre-Anesthesia Assessment: - Prior to the procedure, a History and Physical was performed, and patient medications and allergies were reviewed. The patient's tolerance of previous anesthesia was also reviewed. The risks and benefits of the procedure and the sedation options and risks were discussed with the patient. All questions were answered, and informed consent was obtained. Prior Anticoagulants: The patient has taken no previous anticoagulant or antiplatelet agents. ASA Grade Assessment: III - A patient with severe systemic disease. After reviewing the risks and benefits, the patient was deemed in satisfactory condition to undergo the procedure. After obtaining informed consent, the endoscope was passed under direct vision. Throughout the procedure, the patient's blood pressure, pulse, and oxygen saturations were monitored continuously. The scope was introduced through the mouth, and advanced to the second part of duodenum. The upper GI endoscopy was accomplished without difficulty. The patient tolerated the procedure well. Findings: Moderately severe esophagitis with no bleeding was found. Two non-obstructing oozing cratered gastric ulcers of moderate to significant severity with adherent clot were found on the greater curvature of the stomach. The largest lesion was thirty mm by thirty mm in largest dimension. There is no evidence of perforation. Area was successfully injected with 2 mL of a 1:10,000 solution of epinephrine for hemostasis. Coagulation for hemostasis using heater probe was successful. Localized moderate inflammation characterized by erythema was found in the gastric antrum. Biopsies were taken with a cold forceps for Helicobacter pylori testing. The examined duodenum was normal. Impression: - Moderately severe erosive esophagitis. - Non-obstructing oozing gastric ulcers with adherent clot. NSAID induced etiology. There is no evidence of perforation. Injected. Treated with a heater probe. - Gastritis. Biopsied. - Normal examined duodenum. Recommendation: - Transfer patient to another hospital. - Return patient to ICU for ongoing care. Discussed case with Dr. Smith or Hospitalist service. - NPO today. - Use sucralfate suspension 1 gram PO QID for 10 days. - Use Protonix (pantoprazole) 40 mg IV BID. - Await pathology results. George AbisaiIfeoma Blanchard, 11/03/2017 5:21:48 PM This report has been signed electronically. Note Initiated On: 11/03/2017 3:26 PM Number of Addenda: 0 I attest to the content of the Intraoperative Record and orders documented therein, exceptions below {[id number]}
--- NOTE | 2017-11-03 17:25 | Anesthesiology Progress Note ---
Anesthesia Post Op Note Date & Time Nov 03, 2017 at 17:25 Vital Signs Pain Intensity: 0 Vital Signs Past 12 Hours Date Time Temp Pulse Resp B/P (MAP) Pulse Ox O2 Delivery O2 Flow Rate FiO2 11/03/17 17:20 36.3 77 18 112/74 95 Room Air 11/03/17 17:10 77 20 114/78 97 Room Air 11/03/17 17:00 83 20 114/85 100 Oxymask 3 11/03/17 16:50 36.3 92 20 120/81 100 Oxymask 5 11/03/17 16:00 Room Air 11/03/17 15:20 36.8 74 18 125/84 97 11/03/17 15:14 36.8 74 20 125/84 (98) 97 Room Air 11/03/17 14:53 36.7 72 16 113/66 98 11/03/17 14:35 36.8 77 16 112/71 96 11/03/17 14:19 36.7 73 16 103/67 11/03/17 13:15 36.9 83 16 119/70 99 11/03/17 12:48 36.9 88 16 106/68 11/03/17 12:33 37.0 85 16 108/69 97 11/03/17 12:15 36.5 77 16 107/70 96 11/03/17 08:00 Room Air 11/03/17 07:50 36.4 79 16 108/70 (83) 99 Room Air Notes Mental Status: alert / awake / arousable, participated in evaluation Pt Amnestic to Procedure: Yes Nausea / Vomiting: adequately controlled Pain: adequately controlled Airway Patency, RR, SpO2: stable & adequate BP & HR: stable & adequate Hydration State: stable & adequate Anesthetic Complications: no major complications apparent
[2017-11-03] MEDS ORDERED: SCOPOLAMINE 1.5 MG TDSY TD ONE (17:34)
[2017-11-03] MEDS ORDERED: DEXAMETHASONE SOD INJ 4 MG/ML VIAL ONE (17:34)
[2017-11-03] MEDS ORDERED: NURSING VERBAL MED ORDER ONE ×2 (17:45)
--- NOTE | 2017-11-03 19:34 | Critical Care Consultation ---
Critical Care Consultation Date of Consultation: Nov 03, 2017. Attending Physician: Filemon Smith MD, PhD Reason for Consultation: Acute GI bleeding gastric ulceration and anemia History of Present Illness 41-year-old female presents to the emergency department with about a week's worth of abdominal pain, nausea and vomiting. She has also noticed some low back pain that felt different than her chronic low back pain. She also has noticed fevers for the past 3 days. In the emergency department she was noted to have leukocytosis and a hemoglobin of 7.5. After abdominal CT scanning, GI was consulted and she underwent an EGD which noted evidence of gastric ulcers. She is also now status post 2 units PRBC transfusion. She has been transferred to the ICU for ongoing care. At present, patient states her abdomen continues to feel sore as well as her low back. Denies any outright urinary symptoms to include dysuria, hematuria, or increased frequency. No other acute patient concerns. Past Medical/Surgical History PMH: Migraines, chronic pain, iron deficiency anemia, depression and anxiety, fibromyalgia. PSH: Hysterectomy Family History FHx: cancer Social History Smoking Status: Former Smoker Smokeless Tobacco Use: No Drug Use: none Marital Status: Housing Status: lives with significant other Occupation Status: employed Allergies Coded Allergies: Prochlorperazine (Verified Allergy, Mild, 11/03/17) Sulfa Drugs (Verified Allergy, Mild, 11/03/17) Sulfamethoxazole (Verified Allergy, Mild, 11/03/17) Trimethoprim (Verified Allergy, Mild, 11/03/17) Penicillins (Verified Allergy, Unknown, hives, 11/03/17) per patient notes hives rxn in past with pcns Latex1 -Allergic Contact Dermititis (Verified Adverse Reaction, Intermediate, LOCAL RASH, ITCHINESS, 11/03/17) Clarithromycin (Verified Adverse Reaction, Mild, Unknown rxn, 06/24/17) Home Medications Scheduled Ferrous Sulfate (Iron), 325 MG PO BID Hydroxyzine Pamoate (Vistaril), 25 MG PO DAILY Scheduled PRN Fexofenadine Hcl (Samreen Allergy), 180 MG PO DAILY PRN for Seasonal Allergies Ondansetron Hcl (Zofran), 4 MG PO BID PRN for Nausea or Vomiting Current Inpatient Medications Current Inpatient Medications Medications (Trade) Dose Ordered Sig/Demetria Route Start Time Stop Time Status Last Admin Dose Admin Ioversol (Optiray 320) 100 ml UD PRN IV 11/03/17 01:00 11/07/17 00:59 Hydroxyzine HCl (Vistaril Tab) 25 mg DAILY PO 11/03/17 09:00 12/03/17 08:59 11/03/17 09:00 25 MG Acetaminophen (Tylenol Tab) 650 mg Q4H PRN PO 11/03/17 03:30 12/03/17 03:29 11/03/17 09:00 650 MG Ondansetron HCl (Zofran Inj) 4 mg Q6H PRN IV 11/03/17 03:30 12/03/17 03:29 Hydromorphone HCl (Dilaudid Inj) 0.5 mg Q4H PRN IV 11/03/17 04:00 11/17/17 03:59 Pantoprazole Sodium 40 mg/ Syringe 10 ml @ 5 mls/min DAILY@ IV 11/03/17 21:00 11/05/17 09:01 Fentanyl Citrate (Fentanyl Inj) 25 mcg Q5M PRN IV 11/03/17 16:00 11/03/17 21:00 Ondansetron HCl (Zofran Inj) 4 mg ONE PRN IV 11/03/17 16:00 11/03/17 21:00 11/03/17 17:07 4 MG Ephedrine Sulfate (EpHEDrine SULFATE INJ) 5 mg Q5M PRN IV 11/03/17 16:00 11/03/17 21:00 Atropine Sulfate (Atropine Sulfate 0.1mg/ml Inj) 0.5 mg Q1M PRN IV 11/03/17 16:00 11/03/17 21:00 Sucralfate (Carafate Susp) 1 gm ACHS PO 11/03/17 21:00 12/03/17 20:59 Miscellaneous (Remove Transderm-Scop Patch) 1 ea Q72H N/A 11/06/17 17:45 11/06/17 17:46 Miscellaneous Information (Check Scopolamine Patch Placement) 1 ea QS N/A 11/04/17 00:00 12/04/17 00:00 Review of Systems Constitutional: + fever, + weakness Respiratory: No cough, No shortness of breath Cardiovascular: No chest pain, No edema Abdomen: + pain, + nausea, + vomiting, No diarrhea Genitourinary - Female: No dysuria, No urinary frequency, No urinary urgency, No hematuria Physical Exam Date Time Temp Pulse Resp B/P (MAP) Pulse Ox O2 Delivery O2 Flow Rate FiO2 11/03/17 18:30 36.8 88 20 123/68 (86) 96 Room Air 11/03/17 18:10 36.3 82 18 112/73 94 Room Air 11/03/17 18:00 36.3 84 18 114/79 95 Room Air 11/03/17 17:50 36.3 83 18 119/79 94 Room Air 11/03/17 17:40 36.3 76 18 114/76 95 Room Air 11/03/17 17:30 36.3 76 18 114/77 94 Room Air 11/03/17 17:20 36.3 77 18 112/74 95 Room Air 11/03/17 17:10 77 20 114/78 97 Room Air 11/03/17 17:00 83 20 114/85 100 Oxymask 3 11/03/17 16:50 36.3 92 20 120/81 100 Oxymask 5 11/03/17 16:00 Room Air 11/03/17 15:20 36.8 74 18 125/84 97 11/03/17 15:14 36.8 74 20 125/84 (98) 97 Room Air 11/03/17 14:53 36.7 72 16 113/66 98 11/03/17 14:35 36.8 77 16 112/71 96 11/03/17 14:19 36.7 73 16 103/67 11/03/17 13:15 36.9 83 16 119/70 99 11/03/17 12:48 36.9 88 16 106/68 11/03/17 12:33 37.0 85 16 108/69 97 11/03/17 12:15 36.5 77 16 107/70 96 11/03/17 08:00 Room Air 11/03/17 07:50 36.4 79 16 108/70 (83) 99 Room Air 11/03/17 04:26 37.1 80 20 117/74 95 Room Air 11/03/17 04:03 36.9 81 16 117/75 97 11/03/17 03:42 36.9 81 117/75 97 Room Air 11/03/17 01:48 92 16 130/84 93 Room Air 11/03/17 00:25 36.8 111 22 166/87 99 Room Air General Appearance: Awake, alert & oriented, comfortable in general, thin habitus, appears a bit pale, but in NAD. CV: +S1S2 RRR, no murmur. Pulm: Clear to auscultation throughout. Abdomen: +BS, soft, diffusely mildly tender 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, nontender to percussion, nondistended. Extremities: No pedal edema or calf tenderness. Moving all extremities naturally and easily. Neuro: No gross neuro deficits. Laboratory Results Last 24 Hours Test 11/03/17 00:40 11/03/17 00:50 11/03/17 03:50 11/03/17 08:05 White Blood Count 13.60 K/uL Red Blood Count 4.48 M/uL Hemoglobin 7.5 g/dL 6.3 g/dL Hematocrit 26.7 % Mean Corpuscular Volume 59.6 fL Mean Corpuscular Hemoglobin 16.7 pg Mean Corpuscular Hemoglobin Concent 28.1 g/dl Platelet Count 708 K/uL Mean Platelet Volume 8.7 fL Neutrophils (%) (Auto) 78.5 % Lymphocytes (%) (Auto) 14.0 % Monocytes (%) (Auto) 5.9 % Eosinophils (%) (Auto) 1.2 % Basophils (%) (Auto) 0.3 % Neutrophils # (Auto) 10.68 K/uL Lymphocytes # (Auto) 1.90 K/uL Monocytes # (Auto) 0.80 K/uL Eosinophils # (Auto) 0.16 K/uL Basophils # (Auto) 0.04 K/uL RDW Standard Deviation 37.3 fL RDW Coefficient of Variation 17.3 % Immature Granulocyte % (Auto) 0.1 % Immature Granulocyte # (Auto) 0.02 K/uL Hypochromasia PRESENT Microcytosis PRESENT Ovalocytes 1+ Sodium Level 136 mmol/L Potassium Level 3.4 mmol/L Chloride Level 101 mmol/L Carbon Dioxide Level 26 mmol/L Anion Gap 9.0 mmol/L 18.0 mmol/L Blood Urea Nitrogen 18 mg/dl Creatinine 0.97 mg/dl Est Creatinine Clear Calc Drug Dose 70.1 ml/min Estimated GFR () 85.3 Estimated GFR (Non- 73.6 BUN/Creatinine Ratio 18.9 Random Glucose 116 mg/dl Calcium Level 9.6 mg/dl Total Bilirubin 0.2 mg/dl Direct Bilirubin < 0.1 mg/dl Aspartate Amino Transf (AST/SGOT) 19 U/L Alanine Aminotransferase (ALT/SGPT) 25 U/L Alkaline Phosphatase 186 U/L Total Protein 8.8 gm/dl Albumin 3.5 gm/dl Lipase 60 U/L Bedside Hemoglobin 9.2 g/dl Bedside Hematocrit 27 % Bedside Sodium 138 mEq/L Bedside Potassium 3.5 mEq/L Bedside Chloride 99 mEq/L Bedside Total CO2 26 mEq/l Bedside Blood Urea Nitrogen 18 mg/dl Bedside Creatinine 0.9 mg/dl Bedside Glucose (other) 120 mg/dl Bedside Ionized Calcium (Jass) 1.15 mmol/l Urine Color YELLOW Urine Appearance CLEAR Urine pH 5.0 Urine Specific [place] > 1.045 Urine Protein NEG Urine Glucose (UA) NEG Urine Ketones NEG Urine Occult Blood NEG Urine Nitrite POS Urine Bilirubin NEG Urine Urobilinogen NEG Urine Leukocyte Esterase SMALL Urine WBC (Auto) 10-30 /hpf Urine RBC (Auto) 0-4 /hpf Urine Hyaline Casts (Auto) 1-5 /lpf Urine Epithelial Cells (Auto) 0-5 /lpf Urine Bacteria (Auto) 4+ Iron Level 10 mcg/dl Total Iron Binding Capacity 335 mcg/dl Test 11/03/17 11:15 11/03/17 11:34 11/03/17 18:02 Hemoglobin 6.0 g/dL 6.3 g/dL 8.3 g/dL White Blood Count 8.56 K/uL Red Blood Count 3.83 M/uL Hematocrit 22.8 % Mean Corpuscular Volume 59.5 fL Mean Corpuscular Hemoglobin 16.4 pg Mean Corpuscular Hemoglobin Concent 27.6 g/dl Platelet Count 532 K/uL Mean Platelet Volume 8.6 fL Neutrophils (%) (Auto) 67.6 % Lymphocytes (%) (Auto) 20.6 % Monocytes (%) (Auto) 9.1 % Eosinophils (%) (Auto) 2.2 % Basophils (%) (Auto) 0.4 % Neutrophils # (Auto) 5.79 K/uL Lymphocytes # (Auto) 1.76 K/uL Monocytes # (Auto) 0.78 K/uL Eosinophils # (Auto) 0.19 K/uL Basophils # (Auto) 0.03 K/uL RDW Standard Deviation 37.7 fL RDW Coefficient of Variation 17.2 % Immature Granulocyte % (Auto) 0.1 % Immature Granulocyte # (Auto) 0.01 K/uL Hypersegmented Polys 1+ Hypochromasia PRESENT Microcytosis PRESENT Sodium Level 137 mmol/L Potassium Level 3.9 mmol/L Chloride Level 106 mmol/L Carbon Dioxide Level 27 mmol/L Anion Gap 4.0 mmol/L Blood Urea Nitrogen 11 mg/dl Creatinine 0.67 mg/dl Est Creatinine Clear Calc Drug Dose 101.4 ml/min Estimated GFR () 128.3 Estimated GFR (Non- 110.7 BUN/Creatinine Ratio 16.5 Random Glucose 93 mg/dl Calcium Level 8.3 mg/dl Phosphorus Level 3.2 mg/dl Magnesium Level 2.5 mg/dl Assessment & Plan 41-year-old female was admitted early on 03Nov2017 for anemia and abdominal pain. PMH: Migraines, chronic pain, iron deficiency anemia, depression and anxiety, fibromyalgia. 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 Tylenol as needed for pain. On home Vistaril 25 mg daily for anxiety. History of chronic back pain as well. Pulm: No known acute pulmonary issues. Normal room pulse ox postop. Monitoring. CVS: No known acute cardiovascular issues outside of "heme" below. Monitoring. ID: Afebrile, WBC 13 down to 8. UA positive for WBC and nitrites. Patient says she has had a fever for the past couple of days and her back pain is new. - Definitely looks like UTI, but may have pyelonephritis as well. Discussed same with nighttime PA, likely start antibiotics shortly. - Note multiple antibiotic allergies. Endo: No known underlying diabetic or thyroid issues. Monitoring blood sugar. Renal/Lytes: Current Cr 0.67. No known acute renal issues. Monitoring. - Hypokalemia: Admit K3.4. Repleted, resolved. Monitoring. GI: Presented with abdominal pain and acute nausea/vomiting. CT a/p noted thickening of the gastric wall and multiple enlarged perigastric lymph nodes. GI consulted, see related notes. 27Apr Upper GI endoscopy noted moderately severe erosive esophagitis, non-obstructing oozing gastric ulcers, no evidence of perforation, gastritis, and a normal examined duodenum. Gastric ulcers were treated with a heater probe. NPO for now. Patient is a chronic daily Aleve user for her back pain. - Gastric biopsy pathology pending. - Iron level of 10, history of chronic iron deficiency anemia. On iron at home , holding here. While inpatient, on Protonix IV and Carafate PO. Zofran as needed for nausea. - Mildly elevated alkaline phosphatase. Heme: Admit hemoglobin 7.5. On serial checks, trended down to 6.0. Transfused 2 units PRBCs. Follow on Hb 8.3. Checking H&H q8h for next 24 hours. DVT prophy: SCDs. Chemical prophylaxis contraindicated due to suspected GI bleed. Lines: PIV. Code status: Full code. PT/OT: Deferred. Disposition: ICU post-procedure. Resident Physician Supervision Note: Dr. Mosqueda was resident physician during care of patient. I separately evaluated patient and did history and exam. I discussed the case with the resident and generally agree with the findings and plan. ICU monitoring. Patient has undergone definitive therapy at this point. Discussed with Dr. Blanchard of gastroenterology approximately 20% risk for rebleeding. There was blood vessel exposed in the ulcer crater. I have personally spent 30 minutes of critical care time in the direct management of this patient. This is a life/limb threatening event. This includes time spent evaluating patient, direct bedside care, chart review, placing orders, interpretation of diagnostic studies, discussion with consultants, patient, and/or family members regarding treatment decisions, as well as other required patient management activities. This time is exclusive of all separately billable procedures, and teaching time and separate from and in addition to any other critical care service time. Documented By: Maynor Ashford DO Resident Tracking Resident Involvement: Resident Care Provided Care Provided: Adult Hospital Medicine (ICU)
[2017-11-03] MEDS: HYDROmorphone INJ 0.5 MG/0.5 ML SYR IV PRN (19:43)
[2017-11-03] MEDS ORDERED: CEFTRIAXONE SOD INJ 1 GM in DEXTROSE 5% ADD-VANTAGE 50ML 50 ML IV STA (20:21)
[2017-11-03] MEDS: SUCRALFATE 1 GM/10 ML UDC PO SCH (21:53)
[2017-11-03] MEDS: PANTOprazole INJ 40 MG in SYRINGE 0 ML IV SCH (21:53)
[2017-11-03] MEDS: CIPROFLOXACIN 500 MG TAB PO SCH (21:54)
[2017-11-03 21:58] LABS: HEMATOCRIT 29.9 % (37-47)
[2017-11-03] MEDS ORDERED: CIPROFLOXACIN 400MG / D5W IV ONE (23:00)
[2017-11-04] VITALS (18 sets, daily range): BP systolic 87–131; BP diastolic 50–74; PULSE 62–84; TEMP 36.3–36.9; O2SAT 94–98
[2017-11-04] MEDS: CHECK SCOPOLAMINE PATCH PLACEMENT SCH ×4 (00:21→23:25)
[2017-11-04] MEDS: ONDANSETRON INJ 2 MG/ML 2 ML VIAL IV PRN ×2 (04:22→17:03)
[2017-11-04] MEDS: HYDROmorphone INJ 0.5 MG/0.5 ML SYR IV PRN ×3 (04:23→17:04)
[2017-11-04 04:28] LABS: HEMATOCRIT 30.9 % (37-47); HEMOGLOBIN 9.2 g/dL (12.0-16.0); MEAN CELL VOLUME 64.6 fL (80-100); MEAN CORPUSCULAR HEMOGLOBIN 19.2 pg (25-34); MEAN CORPUSCULAR HGB CONC 29.8 g/dl (32-36); MEAN PLATELET VOLUME 8.6 fL (7.4-10.4); PLATELET COUNT 451 K/uL (130-400); RED CELL DISTRIBUTION WIDTH SD 50.9 fL (36.4-46.3); WHITE BLOOD COUNT 7.32 K/uL (4.8-10.8)
[2017-11-04 04:38] LABS: IG# 0.01 K/uL (0.00-0.02); LYMPH % 8.5 %; LYMPH ABS # 0.62 K/uL (1.2-3.4); MONO % 1.9 %; MONO ABS # 0.14 K/uL (0.11-0.59); NEUT % 89.5 %; NEUT ABS # 6.55 K/uL (1.4-6.5)
[2017-11-04 04:39] LABS: ALBUMIN 2.7 gm/dl (3.4-5.0); CALCIUM 8.8 mg/dl (8.5-10.1); CREATININE 0.69 mg/dl (0.60-1.20); POTASSIUM 4.1 mmol/L (3.5-5.1)
[2017-11-04 04:53] LABS: PHOSPHORUS 4.6 mg/dl (2.5-4.9); TOTAL PROTEIN 7.1 gm/dl (6.4-8.2)
[2017-11-04] MEDS: SUCRALFATE 1 GM/10 ML UDC PO SCH ×4 (05:50→21:37)
[2017-11-04] MEDS: PANTOprazole INJ 40 MG in SYRINGE 0 ML IV SCH ×2 (07:23→22:42)
[2017-11-04] MEDS: hydrOXYzine HCL 25 MG TAB PO SCH (07:48)
--- NOTE | 2017-11-04 09:21 | Critical Care Progress Note ---
Critical Care Progress Note Date of Service Nov 04, 2017. ICU Day ICU Day Number: [address] Ashford Subjective Asymptomatic, no chest pain, no nausea, no vomiting. Objective General: Alert. nontoxic. Skin: Warm, dry, Head: Atraumatic Ears, nose, mouth and throat: airway patent Cardiovascular: Normal peripheral perfusion Respiratory: no respiratory distress Gastrointestinal: Non distended Musculoskeletal: No deformity Assessment & Plan 41-year-old female was admitted early on 03Nov2017 for anemia and abdominal pain. PMH: Migraines, chronic pain, iron deficiency anemia, depression and anxiety, fibromyalgia. 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 Tylenol as needed for pain. On home Vistaril 25 mg daily for anxiety. History of chronic back pain as well. Pulm: No known acute pulmonary issues. Normal room pulse ox postop. Monitoring. CVS: No known acute cardiovascular issues outside of "heme" below. Monitoring. ID: Uncomplicated urinary tract infection based off of UA Macrobid 100 mg twice daily 5 days Endo: No known underlying diabetic or thyroid issues. Monitoring blood sugar. Renal/Lytes: Current Cr 0.67. No known acute renal issues. Monitoring. - Hypokalemia: Admit K3.4. Repleted, resolved. Monitoring. GI: Hemodynamically stable, will allow clears today On Carafate Heme: H&H appear stable DVT prophy: SCDs. Chemical prophylaxis contraindicated due to suspected GI bleed. Lines: PIV. Code status: Full code. PT/OT: Deferred. Disposition: Stable for downgrade out of ICU Consults & Procedures Consultants: Gastroenterology Procedures: EGD November 03, 2017 Data Medications: Current Inpatient Medications Medications (Trade) Dose Ordered Sig/Demetria Route Start Time Stop Time Status Last Admin Dose Admin Ioversol (Optiray 320) 100 ml UD PRN IV 11/03/17 01:00 11/07/17 00:59 Hydroxyzine HCl (Vistaril Tab) 25 mg DAILY PO 11/03/17 09:00 12/03/17 08:59 11/04/17 07:48 25 MG Acetaminophen (Tylenol Tab) 650 mg Q4H PRN PO 11/03/17 03:30 12/03/17 03:29 11/03/17 23:39 650 MG Ondansetron HCl (Zofran Inj) 4 mg Q6H PRN IV 11/03/17 03:30 12/03/17 03:29 11/04/17 04:22 4 MG Hydromorphone HCl (Dilaudid Inj) 0.5 mg Q4H PRN IV 11/03/17 04:00 11/17/17 03:59 11/04/17 04:23 0.5 MG Pantoprazole Sodium 40 mg/ Syringe 10 ml @ 5 mls/min DAILY@ IV 11/03/17 21:00 11/05/17 09:01 11/04/17 07:23 5 MLS/MIN Sucralfate (Carafate Susp) 1 gm ACHS PO 11/03/17 21:00 12/03/17 20:59 11/04/17 07:21 1 GM Miscellaneous (Remove Transderm-Scop Patch) 1 ea Q72H N/A 11/06/17 17:45 11/06/17 17:46 Miscellaneous Information (Check Scopolamine Patch Placement) 1 ea QS N/A 11/04/17 00:00 12/04/17 00:00 11/04/17 07:21 1 EA Ciprofloxacin (Cipro Tab) 500 mg BID PO 11/04/17 09:00 11/08/17 21:01 11/03/17 21:54 500 MG Nitrofurantoin Macrocrystals (Macrobid Cap) 100 mg BID PO 11/04/17 21:00 11/09/17 09:01 UNV Vital Signs: Date Time Temp Pulse Resp B/P (MAP) Pulse Ox O2 Delivery O2 Flow Rate FiO2 11/04/17 08:00 96 Room Air 11/04/17 08:00 36.8 63 14 99/62 (74) 96 Room Air 11/04/17 06:01 67 22 87/50 (62) 96 11/04/17 06:00 66 16 96 11/04/17 05:02 70 18 103/53 (70) 96 11/04/17 05:00 72 20 95 11/04/17 04:04 78 13 122/57 (78) 98 11/04/17 04:00 94 Room Air 11/04/17 04:00 36.3 84 25 97 11/04/17 03:01 70 12 131/67 (88) 97 11/04/17 03:00 67 17 96 11/04/17 02:01 76 15 114/56 (75) 96 11/04/17 02:00 73 14 96 11/04/17 01:01 74 11 121/64 (83) 95 11/04/17 01:00 79 13 95 11/04/17 00:01 36.7 80 12 111/70 (84) 95 11/04/17 00:00 74 14 96 11/04/17 00:00 94 Room Air 11/03/17 21:02 84 16 115/76 (89) 97 11/03/17 21:00 86 18 96 11/03/17 20:01 86 15 108/60 (76) 95 11/03/17 20:00 36.8 11/03/17 20:00 89 16 94 11/03/17 20:00 94 Room Air 11/03/17 19:01 86 17 123/68 (86) 96 11/03/17 19:00 83 17 97 11/03/17 18:30 36.8 88 20 123/68 (86) 96 Room Air 11/03/17 18:10 36.3 82 18 112/73 94 Room Air 11/03/17 18:00 36.3 84 18 114/79 95 Room Air 11/03/17 17:50 36.3 83 18 119/79 94 Room Air 11/03/17 17:40 36.3 76 18 114/76 95 Room Air 11/03/17 17:30 36.3 76 18 114/77 94 Room Air 11/03/17 17:20 36.3 77 18 112/74 95 Room Air 11/03/17 17:10 77 20 114/78 97 Room Air 11/03/17 17:00 83 20 114/85 100 Oxymask 3 11/03/17 16:50 36.3 92 20 120/81 100 Oxymask 5 11/03/17 16:00 Room Air 11/03/17 15:20 36.8 74 18 125/84 97 11/03/17 15:14 36.8 74 20 125/84 (98) 97 Room Air 11/03/17 14:53 36.7 72 16 113/66 98 11/03/17 14:35 36.8 77 16 112/71 96 11/03/17 14:19 36.7 73 16 103/67 11/03/17 13:15 36.9 83 16 119/70 99 11/03/17 12:48 36.9 88 16 106/68 11/03/17 12:33 37.0 85 16 108/69 97 11/03/17 12:15 36.5 77 16 107/70 96 Laboratory Results: Last 24 Hours Test 11/03/17 11:15 11/03/17 11:34 11/03/17 18:02 11/03/17 21:52 Hemoglobin 6.0 g/dL 6.3 g/dL 8.3 g/dL 9.0 g/dL White Blood Count 8.56 K/uL Red Blood Count 3.83 M/uL Hematocrit 22.8 % 29.9 % Mean Corpuscular Volume 59.5 fL Mean Corpuscular Hemoglobin 16.4 pg Mean Corpuscular Hemoglobin Concent 27.6 g/dl Platelet Count 532 K/uL Mean Platelet Volume 8.6 fL Neutrophils (%) (Auto) 67.6 % Lymphocytes (%) (Auto) 20.6 % Monocytes (%) (Auto) 9.1 % Eosinophils (%) (Auto) 2.2 % Basophils (%) (Auto) 0.4 % Neutrophils # (Auto) 5.79 K/uL Lymphocytes # (Auto) 1.76 K/uL Monocytes # (Auto) 0.78 K/uL Eosinophils # (Auto) 0.19 K/uL Basophils # (Auto) 0.03 K/uL RDW Standard Deviation 37.7 fL RDW Coefficient of Variation 17.2 % Immature Granulocyte % (Auto) 0.1 % Immature Granulocyte # (Auto) 0.01 K/uL Hypersegmented Polys 1+ Hypochromasia PRESENT Microcytosis PRESENT Sodium Level 137 mmol/L Potassium Level 3.9 mmol/L Chloride Level 106 mmol/L Carbon Dioxide Level 27 mmol/L Anion Gap 4.0 mmol/L Blood Urea Nitrogen 11 mg/dl Creatinine 0.67 mg/dl Est Creatinine Clear Calc Drug Dose 101.4 ml/min Estimated GFR () 128.3 Estimated GFR (Non- 110.7 BUN/Creatinine Ratio 16.5 Random Glucose 93 mg/dl Calcium Level 8.3 mg/dl Phosphorus Level 3.2 mg/dl Magnesium Level 2.5 mg/dl Test 11/04/17 04:00 White Blood Count 7.32 K/uL Red Blood Count 4.78 M/uL Hemoglobin 9.2 g/dL Hematocrit 30.9 % Mean Corpuscular Volume 64.6 fL Mean Corpuscular Hemoglobin 19.2 pg Mean Corpuscular Hemoglobin Concent 29.8 g/dl Platelet Count 451 K/uL Mean Platelet Volume 8.6 fL Neutrophils (%) (Auto) 89.5 % Lymphocytes (%) (Auto) 8.5 % Monocytes (%) (Auto) 1.9 % Eosinophils (%) (Auto) 0.0 % Basophils (%) (Auto) 0.0 % Neutrophils # (Auto) 6.55 K/uL Lymphocytes # (Auto) 0.62 K/uL Monocytes # (Auto) 0.14 K/uL Eosinophils # (Auto) 0.00 K/uL Basophils # (Auto) 0.00 K/uL RDW Standard Deviation 50.9 fL RDW Coefficient of Variation 22.0 % Immature Granulocyte % (Auto) 0.1 % Immature Granulocyte # (Auto) 0.01 K/uL Hypochromasia PRESENT Anisocytosis PRESENT Microcytosis PRESENT Ovalocytes 1+ Sodium Level 136 mmol/L Potassium Level 4.1 mmol/L Chloride Level 105 mmol/L Carbon Dioxide Level 27 mmol/L Anion Gap 4.0 mmol/L Blood Urea Nitrogen 12 mg/dl Creatinine 0.69 mg/dl Est Creatinine Clear Calc Drug Dose 98.5 ml/min Estimated GFR () 127.1 Estimated GFR (Non- 109.7 BUN/Creatinine Ratio 17.1 Random Glucose 101 mg/dl Calcium Level 8.8 mg/dl Phosphorus Level 4.6 mg/dl Magnesium Level 2.1 mg/dl Total Bilirubin 0.6 mg/dl Direct Bilirubin 0.2 mg/dl Aspartate Amino Transf (AST/SGOT) 21 U/L Alanine Aminotransferase (ALT/SGPT) 19 U/L Alkaline Phosphatase 148 U/L Total Protein 7.1 gm/dl Albumin 2.7 gm/dl
[2017-11-04] MEDS: ACETAMINOPHEN 325 MG TAB PO PRN (10:49)
[2017-11-04 14:29] LABS: HEMATOCRIT 29.4 % (37-47); HEMOGLOBIN 8.7 g/dL (12.0-16.0)
--- NOTE | 2017-11-04 16:09 | Progress Note ---
Progress Note Date of Service Nov 04, 2017. Progress Note Reports mild nausea, ow no complaints. Appears comfortable Date Time Temp Pulse Resp B/P (MAP) Pulse Ox O2 Delivery O2 Flow Rate FiO2 11/04/17 10:15 36.6 74 16 109/74 (86) 96 Room Air 11/04/17 09:49 36.8 63 14 96 3.0 11/04/17 08:00 96 Room Air 11/04/17 08:00 36.8 63 14 99/62 (74) 96 Room Air 11/04/17 06:01 67 22 87/50 (62) 96 11/04/17 06:00 66 16 96 11/04/17 05:02 70 18 103/53 (70) 96 11/04/17 05:00 72 20 95 11/04/17 04:04 78 13 122/57 (78) 98 11/04/17 04:00 94 Room Air 11/04/17 04:00 36.3 84 25 97 11/04/17 03:01 70 12 131/67 (88) 97 11/04/17 03:00 67 17 96 11/04/17 02:01 76 15 114/56 (75) 96 11/04/17 02:00 73 14 96 11/04/17 01:01 74 11 121/64 (83) 95 11/04/17 01:00 79 13 95 11/04/17 00:01 36.7 80 12 111/70 (84) 95 11/04/17 00:00 74 14 96 11/04/17 00:00 94 Room Air 11/03/17 21:02 84 16 115/76 (89) 97 11/03/17 21:00 86 18 96 11/03/17 20:01 86 15 108/60 (76) 95 11/03/17 20:00 36.8 11/03/17 20:00 89 16 94 11/03/17 20:00 94 Room Air 11/03/17 19:01 86 17 123/68 (86) 96 11/03/17 19:00 83 17 97 11/03/17 18:30 36.8 88 20 123/68 (86) 96 Room Air 11/03/17 18:10 36.3 82 18 112/73 94 Room Air 11/03/17 18:00 36.3 84 18 114/79 95 Room Air 11/03/17 17:50 36.3 83 18 119/79 94 Room Air 11/03/17 17:40 36.3 76 18 114/76 95 Room Air 11/03/17 17:30 36.3 76 18 114/77 94 Room Air 11/03/17 17:20 36.3 77 18 112/74 95 Room Air 11/03/17 17:10 77 20 114/78 97 Room Air 11/03/17 17:00 83 20 114/85 100 Oxymask 3 11/03/17 16:50 36.3 92 20 120/81 100 Oxymask 5 HEENT: mild pallor Abd soft NT Last 24 Hours Test 11/03/17 18:02 11/03/17 21:52 11/04/17 04:00 11/04/17 14:10 Hemoglobin 8.3 g/dL 9.0 g/dL 9.2 g/dL 8.7 g/dL Hematocrit 29.9 % 30.9 % 29.4 % White Blood Count 7.32 K/uL Red Blood Count 4.78 M/uL Mean Corpuscular Volume 64.6 fL Mean Corpuscular Hemoglobin 19.2 pg Mean Corpuscular Hemoglobin Concent 29.8 g/dl Platelet Count 451 K/uL Mean Platelet Volume 8.6 fL Neutrophils (%) (Auto) 89.5 % Lymphocytes (%) (Auto) 8.5 % Monocytes (%) (Auto) 1.9 % Eosinophils (%) (Auto) 0.0 % Basophils (%) (Auto) 0.0 % Neutrophils # (Auto) 6.55 K/uL Lymphocytes # (Auto) 0.62 K/uL Monocytes # (Auto) 0.14 K/uL Eosinophils # (Auto) 0.00 K/uL Basophils # (Auto) 0.00 K/uL RDW Standard Deviation 50.9 fL RDW Coefficient of Variation 22.0 % Immature Granulocyte % (Auto) 0.1 % Immature Granulocyte # (Auto) 0.01 K/uL Hypochromasia PRESENT Anisocytosis PRESENT Microcytosis PRESENT Ovalocytes 1+ Sodium Level 136 mmol/L Potassium Level 4.1 mmol/L Chloride Level 105 mmol/L Carbon Dioxide Level 27 mmol/L Anion Gap 4.0 mmol/L Blood Urea Nitrogen 12 mg/dl Creatinine 0.69 mg/dl Est Creatinine Clear Calc Drug Dose 98.5 ml/min Estimated GFR () 127.1 Estimated GFR (Non- 109.7 BUN/Creatinine Ratio 17.1 Random Glucose 101 mg/dl Calcium Level 8.8 mg/dl Phosphorus Level 4.6 mg/dl Magnesium Level 2.1 mg/dl Total Bilirubin 0.6 mg/dl Direct Bilirubin 0.2 mg/dl Aspartate Amino Transf (AST/SGOT) 21 U/L Alanine Aminotransferase (ALT/SGPT) 19 U/L Alkaline Phosphatase 148 U/L Total Protein 7.1 gm/dl Albumin 2.7 gm/dl A/p: GIB with Visible vessel s/p cautery/injxn now post procedure day 1without evidence of recurrent bleed Cont BID IV PPI x 72 hours. Diet as juliana. Daily hgb.
--- NOTE | 2017-11-04 16:31 | Progress Note ---
Subjective Date of Service: Nov 04, 2017. Subjective Pt evaluation today including: conversation w/ patient, conversation w/ family , physical exam, chart review, lab review, review of studies, conversation w/ sec reporting consultant, review of inpatient medication list Generally feeling better, is eating some clear liquid diet, no nauseat, report has headache, 8 out of 10, Problem List Medical Problems: (1) Anemia Status: Acute (2) Dehydration Status: Acute (3) Gastritis Status: Acute (4) Intractable abdominal pain Status: Acute (5) Intractable vomiting Status: Acute (6) Iron deficiency anemia Status: Acute (7) Pelvic pain Status: Acute (8) Vomiting Status: Acute Review of Systems Constitutional: + weakness, + fatigue, No fever, No chills, No sweats, No weight loss, No problem reported Eyes: No worsening of vision, No eye pain, No redness, No discharge, No diplopia ENT: No hearing loss, No unusual epistaxis, No nasal symptoms, No sore throat, No tinnitus, No dental problems, No trouble swallowing Respiratory: No cough, No sputum, No wheezing, No shortness of breath, No dyspnea on exertion, No dyspnea at rest, No hemoptysis Cardiac: No chest pain, No orthopnea, No PND, No edema, No claudication, No palpitations Abdomen: No pain, No nausea, No vomiting, No diarrhea, No constipation Musculoskeletal: No joint pain, No muscle pain, No swelling, No calf pain Female : No dysuria, No urinary frequency, No hematuria, No incontinence, No abnormal vaginal bleeding, No vaginal discharge Neurologic: No memory loss, No paralysis, No weakness, No numbness/tingling, No vertigo, No balance problems Psychiatric: No depression symptoms, No anhedonism, No anxiety, No insomnia, No substance abuse Heme: No abnormal bleeding/bruising, No clotting problems, No swollen lymph nodes, No night sweats Endo: No fatigue, No excessive thirst, No excessive urination Skin: No rash, No itch, No new/changing skin lesions, No color change, No bleeding Objective Vital Signs Date Time Temp Pulse Resp B/P (MAP) Pulse Ox O2 Delivery O2 Flow Rate FiO2 11/04/17 10:15 36.6 74 16 109/74 (86) 96 Room Air 11/04/17 09:49 36.8 63 14 96 3.0 11/04/17 08:00 96 Room Air 11/04/17 08:00 36.8 63 14 99/62 (74) 96 Room Air 11/04/17 06:01 67 22 87/50 (62) 96 11/04/17 06:00 66 16 96 11/04/17 05:02 70 18 103/53 (70) 96 11/04/17 05:00 72 20 95 11/04/17 04:04 78 13 122/57 (78) 98 11/04/17 04:00 94 Room Air 11/04/17 04:00 36.3 84 25 97 11/04/17 03:01 70 12 131/67 (88) 97 11/04/17 03:00 67 17 96 11/04/17 02:01 76 15 114/56 (75) 96 11/04/17 02:00 73 14 96 11/04/17 01:01 74 11 121/64 (83) 95 11/04/17 01:00 79 13 95 11/04/17 00:01 36.7 80 12 111/70 (84) 95 11/04/17 00:00 74 14 96 11/04/17 00:00 94 Room Air 11/03/17 21:02 84 16 115/76 (89) 97 11/03/17 21:00 86 18 96 11/03/17 20:01 86 15 108/60 (76) 95 11/03/17 20:00 36.8 11/03/17 20:00 89 16 94 11/03/17 20:00 94 Room Air 11/03/17 19:01 86 17 123/68 (86) 96 11/03/17 19:00 83 17 97 11/03/17 18:30 36.8 88 20 123/68 (86) 96 Room Air 11/03/17 18:10 36.3 82 18 112/73 94 Room Air 11/03/17 18:00 36.3 84 18 114/79 95 Room Air 11/03/17 17:50 36.3 83 18 119/79 94 Room Air 11/03/17 17:40 36.3 76 18 114/76 95 Room Air 11/03/17 17:30 36.3 76 18 114/77 94 Room Air 11/03/17 17:20 36.3 77 18 112/74 95 Room Air 11/03/17 17:10 77 20 114/78 97 Room Air 11/03/17 17:00 83 20 114/85 100 Oxymask 3 11/03/17 16:50 36.3 92 20 120/81 100 Oxymask 5 Physical Exam General Appearance: WD/WN, no apparent distress, + thin, + pertinent finding ( Frail, pale, chronically ill looking) Eyes: normal inspection, PERRL, EOMI, sclerae normal ENT: normal ENT inspection, hearing grossly normal, pharynx normal Neck: supple, no adenopathy, thyroid normal, no JVD, no carotid bruits, trachea midline Respiratory/Chest: chest non-tender, normal breath sounds, no respiratory distress, no accessory muscle use, + decreased breath sounds Cardiovascular: regular rate, rhythm, no edema, no gallop, no JVD, no murmur Abdomen: normal bowel sounds, non tender, soft, no organomegaly, no pulsatile mass Extremities: normal range of motion, non-tender, normal inspection, no pedal edema, no calf tenderness, normal capillary refill, pelvis stable 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, no motor/sensory deficits, alert, normal mood/affect, oriented x 3 Skin: normal color, warm/dry, no rash Lymphatic: no adenopathy Laboratory Results Last 24 Hours Test 11/03/17 18:02 11/03/17 21:52 11/04/17 04:00 11/04/17 14:10 Hemoglobin 8.3 g/dL 9.0 g/dL 9.2 g/dL 8.7 g/dL Hematocrit 29.9 % 30.9 % 29.4 % White Blood Count 7.32 K/uL Red Blood Count 4.78 M/uL Mean Corpuscular Volume 64.6 fL Mean Corpuscular Hemoglobin 19.2 pg Mean Corpuscular Hemoglobin Concent 29.8 g/dl Platelet Count 451 K/uL Mean Platelet Volume 8.6 fL Neutrophils (%) (Auto) 89.5 % Lymphocytes (%) (Auto) 8.5 % Monocytes (%) (Auto) 1.9 % Eosinophils (%) (Auto) 0.0 % Basophils (%) (Auto) 0.0 % Neutrophils # (Auto) 6.55 K/uL Lymphocytes # (Auto) 0.62 K/uL Monocytes # (Auto) 0.14 K/uL Eosinophils # (Auto) 0.00 K/uL Basophils # (Auto) 0.00 K/uL RDW Standard Deviation 50.9 fL RDW Coefficient of Variation 22.0 % Immature Granulocyte % (Auto) 0.1 % Immature Granulocyte # (Auto) 0.01 K/uL Hypochromasia PRESENT Anisocytosis PRESENT Microcytosis PRESENT Ovalocytes 1+ Sodium Level 136 mmol/L Potassium Level 4.1 mmol/L Chloride Level 105 mmol/L Carbon Dioxide Level 27 mmol/L Anion Gap 4.0 mmol/L Blood Urea Nitrogen 12 mg/dl Creatinine 0.69 mg/dl Est Creatinine Clear Calc Drug Dose 98.5 ml/min Estimated GFR () 127.1 Estimated GFR (Non- 109.7 BUN/Creatinine Ratio 17.1 Random Glucose 101 mg/dl Calcium Level 8.8 mg/dl Phosphorus Level 4.6 mg/dl Magnesium Level 2.1 mg/dl Total Bilirubin 0.6 mg/dl Direct Bilirubin 0.2 mg/dl Aspartate Amino Transf (AST/SGOT) 21 U/L Alanine Aminotransferase (ALT/SGPT) 19 U/L Alkaline Phosphatase 148 U/L Total Protein 7.1 gm/dl Albumin 2.7 gm/dl Assessment and Plan 41 y/o F Hx migraines, chronic pain, iron-deficient anemia admitted because of severe anemia possible GI bleeding severe anemia possible GI bleeding with hemoglobin repeated at 6 EGD was done yesterday on November 03, 2017, report that was visible vessel s/p cautery/injxn post procedure day 1 without evidence of recurrent bleed, hemoglobin stable GI recommend Cont BID IV PPI x 72 hours. Diet as juliana. Daily hgb. GI bleeding likely caused by NSAID gastritis per abdominal CT Chronic back pain Hypokalemia - replaced History of hysterectomy Possible UTI, patient is asymptomatic, do not need treatment for now transfuse 2 unit packed RBC, Continue supportive care, discussed with patient answer all her questions, SCD for DVT prophylaxis, GI prophylaxis is covered, patient is full code Continued [facility] stay due to: multiple IV medications needed Discharge planning: uncertain
[2017-11-04] MEDS: CIPROFLOXACIN 500 MG TAB PO SCH (21:38)
[2017-11-04] MEDS: NITROFURANTOIN MONOHYDRATE 100 MG CAP PO SCH (21:38)
[2017-11-05] MEDS ORDERED: hydrOXYzine HCL 25 MG TAB PO ONE (00:28)
[2017-11-05] MEDS: ACETAMINOPHEN 325 MG TAB PO PRN (00:38)
[2017-11-05 00:39] VITALS: BP 93/59; PULSE 61; TEMP 36.7; O2SAT 96
[2017-11-05 06:16] LABS: HEMATOCRIT 31.2 % (37-47); HEMOGLOBIN 9.1 g/dL (12.0-16.0); MEAN CELL VOLUME 65.1 fL (80-100); MEAN CORPUSCULAR HGB CONC 29.2 g/dl (32-36); MEAN PLATELET VOLUME 8.9 fL (7.4-10.4); PLATELET COUNT 496 K/uL (130-400); RED CELL DISTRIBUTION WIDTH SD 52.3 fL (36.4-46.3); WHITE BLOOD COUNT 7.43 K/uL (4.8-10.8)
[2017-11-05 06:23] LABS: BASO % 0.4 %; BASO ABS # 0.03 K/uL (0-0.2); EOS ABS # 0.15 K/uL (0-0.5); IG# 0.01 K/uL (0.00-0.02); LYMPH % 43.1 %; MONO % 8.7 %; MONO ABS # 0.65 K/uL (0.11-0.59); NEUT % 45.7 %; NEUT ABS # 3.39 K/uL (1.4-6.5)
[2017-11-05 06:34] LABS: CALCIUM 8.8 mg/dl (8.5-10.1); CREATININE 0.82 mg/dl (0.60-1.20); POTASSIUM 3.8 mmol/L (3.5-5.1)
[2017-11-05 06:51] LABS: PHOSPHORUS 3.4 mg/dl (2.5-4.9)
[2017-11-05 07:13] VITALS: BP 97/60; PULSE 59; TEMP 36.6; O2SAT 97
[2017-11-05] MEDS: SUCRALFATE 1 GM/10 ML UDC PO SCH ×3 (07:56→16:44)
[2017-11-05] MEDS: CHECK SCOPOLAMINE PATCH PLACEMENT SCH ×2 (07:57→16:00)
[2017-11-05] MEDS: ONDANSETRON INJ 2 MG/ML 2 ML VIAL IV PRN ×2 (07:58→21:18)
[2017-11-05] MEDS: CIPROFLOXACIN 500 MG TAB PO SCH ×2 (07:59→21:05)
[2017-11-05] MEDS: PANTOprazole INJ 40 MG in SYRINGE 0 ML IV SCH (07:59)
[2017-11-05 08:00] VITALS: O2SAT 97
[2017-11-05] MEDS: NITROFURANTOIN MONOHYDRATE 100 MG CAP PO SCH ×2 (08:03→21:05)
[2017-11-05] MEDS: HYDROmorphone INJ 0.5 MG/0.5 ML SYR IV PRN ×2 (08:07→11:38)
--- NOTE | 2017-11-05 14:44 | Progress Note ---
Subjective Date of Service: Nov 05, 2017. Subjective Pt evaluation today including: conversation w/ patient, physical exam, chart review, lab review, review of studies, conversation w/ quantitative consultant, review of inpatient medication list Voiding: no voiding problems Still feel headache, which is helped with Tylenol p.o., mild nausea, tolerated clear liquid denied epigastric pain denied melena or black stool Problem List Medical Problems: (1) Anemia Status: Acute (2) Dehydration Status: Acute (3) Gastritis Status: Acute (4) Intractable abdominal pain Status: Acute (5) Intractable vomiting Status: Acute (6) Iron deficiency anemia Status: Acute (7) Pelvic pain Status: Acute (8) Vomiting Status: Acute Review of Systems Constitutional: + weakness, + fatigue, No fever, No chills, No sweats, No weight loss, No problem reported Eyes: No worsening of vision, No eye pain, No redness, No discharge, No diplopia ENT: No hearing loss, No unusual epistaxis, No nasal symptoms, No sore throat, No tinnitus, No dental problems, No trouble swallowing Respiratory: No cough, No sputum, No wheezing, No shortness of breath, No dyspnea on exertion, No dyspnea at rest, No hemoptysis Cardiac: No chest pain, No orthopnea, No PND, No edema, No claudication, No palpitations Abdomen: + pain (Epigastric mild tender), No nausea, No vomiting, No diarrhea, No constipation Musculoskeletal: No joint pain, No muscle pain, No swelling, No calf pain Female : No dysuria, No urinary frequency, No hematuria, No incontinence, No abnormal vaginal bleeding, No vaginal discharge Neurologic: No memory loss, No paralysis, No weakness, No numbness/tingling, No vertigo, No balance problems Psychiatric: No depression symptoms, No anhedonism, No anxiety, No insomnia, No substance abuse Heme: No abnormal bleeding/bruising, No clotting problems, No swollen lymph nodes, No night sweats Endo: No fatigue, No excessive thirst, No excessive urination Skin: No rash, No itch, No new/changing skin lesions, No color change, No bleeding Objective Vital Signs Date Time Temp Pulse Resp B/P (MAP) Pulse Ox O2 Delivery O2 Flow Rate FiO2 11/05/17 08:00 97 Room Air 11/05/17 07:13 36.6 59 18 97/60 (72) 97 Room Air 11/05/17 00:39 36.7 61 18 93/59 (70) 96 Room Air 11/05/17 00:00 Room Air 11/04/17 21:36 36.9 62 20 104/70 (81) 97 Room Air 11/04/17 17:45 Room Air Physical Exam General Appearance: WD/WN, no apparent distress, + thin, + pertinent finding ( Looks better than yesterday, still pale looking) Eyes: normal inspection, PERRL, EOMI, sclerae normal ENT: normal ENT inspection, hearing grossly normal, pharynx normal Neck: supple, no adenopathy, thyroid normal, no JVD, no carotid bruits, trachea midline Respiratory/Chest: chest non-tender, lungs clear, normal breath sounds, no respiratory distress, no accessory muscle use Cardiovascular: regular rate, rhythm, no edema, no gallop, no JVD, no murmur Abdomen: normal bowel sounds, soft, no organomegaly, no pulsatile mass, + tenderness (Epigastric area mild 10) Extremities: normal range of motion, non-tender, normal inspection, no pedal edema, no calf tenderness, normal capillary refill, pelvis stable Neurologic/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: 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, no motor/sensory deficits, alert, normal mood/affect, oriented x 3 Skin: normal color, warm/dry, no rash Lymphatic: no adenopathy Laboratory Results Last 24 Hours Test 11/05/17 05:40 White Blood Count 7.43 K/uL Red Blood Count 4.79 M/uL Hemoglobin 9.1 g/dL Hematocrit 31.2 % Mean Corpuscular Volume 65.1 fL Mean Corpuscular Hemoglobin 19.0 pg Mean Corpuscular Hemoglobin Concent 29.2 g/dl Platelet Count 496 K/uL Mean Platelet Volume 8.9 fL Neutrophils (%) (Auto) 45.7 % Lymphocytes (%) (Auto) 43.1 % Monocytes (%) (Auto) 8.7 % Eosinophils (%) (Auto) 2.0 % Basophils (%) (Auto) 0.4 % Neutrophils # (Auto) 3.39 K/uL Lymphocytes # (Auto) 3.20 K/uL Monocytes # (Auto) 0.65 K/uL Eosinophils # (Auto) 0.15 K/uL Basophils # (Auto) 0.03 K/uL RDW Standard Deviation 52.3 fL RDW Coefficient of Variation 23.0 % Immature Granulocyte % (Auto) 0.1 % Immature Granulocyte # (Auto) 0.01 K/uL Hypochromasia PRESENT Anisocytosis PRESENT Microcytosis PRESENT Sodium Level 140 mmol/L Potassium Level 3.8 mmol/L Chloride Level 105 mmol/L Carbon Dioxide Level 30 mmol/L Anion Gap 5.0 mmol/L Blood Urea Nitrogen 11 mg/dl Creatinine 0.82 mg/dl Est Creatinine Clear Calc Drug Dose 82.9 ml/min Estimated GFR () 104.5 Estimated GFR (Non- 90.1 BUN/Creatinine Ratio 12.8 Random Glucose 79 mg/dl Calcium Level 8.8 mg/dl Phosphorus Level 3.4 mg/dl Magnesium Level 2.2 mg/dl Assessment and Plan 41 y/o F Hx migraines, chronic pain, iron-deficient anemia admitted November 03, 2017 because of severe anemia possible GI bleeding severe anemia possible from GI bleeding with hemoglobin repeated at 6 EGD was done on November 03, 2017, report that was visible vessel s/p cautery/ injxn post procedure day 2 today without evidence of recurrent bleed, hemoglobin stable GI recommend Cont BID IV PPI x 72 hours, which will be completed today, will switch over to oral Protonix twice daily, Ativan diet as tolerated daily hgb. GI bleeding likely caused by NSAID, his consult to avoid NSAID gastritis per abdominal CT Possible UTI upon admission, there was no urine culture sent, switch Cipro to oral, because there was concern about possible pyelonephritis upon admission associated with nausea /vomiting, therefore will continue antibiotic for total 7 days, today is day 4 out of 7 Chronic back pain Hypokalemia - replaced History of hysterectomy transfuse 2 unit packed RBC, Continue supportive care, discussed with patient answer all her questions, SCD for DVT prophylaxis, GI prophylaxis is covered, patient is full code Continued [facility] stay due to: multiple IV medications needed Discharge planning: uncertain
[2017-11-05 14:51] VITALS: BP 96/56; PULSE 58; TEMP 36.9; O2SAT 97
[2017-11-05 16:00] VITALS: O2SAT 95
[2017-11-05] MEDS ORDERED: NURSING VERBAL MED ORDER ONE (16:00)
[2017-11-05] MEDS: BUTALBITAL/ACETAMIN/CAFFEINE TAB PO PRN ×2 (17:06→22:27)
--- NOTE | 2017-11-05 18:14 | Progress Note ---
Progress Note Date of Service Nov 05, 2017. Progress Note Persistent nausea with clears, but no evidence of GIB - has not had BM. No abd pain. Denies sensation of bloating, constipation Date Time Temp Pulse Resp B/P (MAP) Pulse Ox O2 Delivery O2 Flow Rate FiO2 11/05/17 16:00 95 Room Air 11/05/17 14:51 36.9 58 18 96/56 (69) 97 Room Air 11/05/17 08:00 97 Room Air 11/05/17 07:13 36.6 59 18 97/60 (72) 97 Room Air 11/05/17 00:39 36.7 61 18 93/59 (70) 96 Room Air 11/05/17 00:00 Room Air 11/04/17 21:36 36.9 62 20 104/70 (81) 97 Room Air Appears uncomfortable after eating lung Abd is soft NT and ND Skin is pale Last 24 Hours Test 11/05/17 05:40 White Blood Count 7.43 K/uL Red Blood Count 4.79 M/uL Hemoglobin 9.1 g/dL Hematocrit 31.2 % Mean Corpuscular Volume 65.1 fL Mean Corpuscular Hemoglobin 19.0 pg Mean Corpuscular Hemoglobin Concent 29.2 g/dl Platelet Count 496 K/uL Mean Platelet Volume 8.9 fL Neutrophils (%) (Auto) 45.7 % Lymphocytes (%) (Auto) 43.1 % Monocytes (%) (Auto) 8.7 % Eosinophils (%) (Auto) 2.0 % Basophils (%) (Auto) 0.4 % Neutrophils # (Auto) 3.39 K/uL Lymphocytes # (Auto) 3.20 K/uL Monocytes # (Auto) 0.65 K/uL Eosinophils # (Auto) 0.15 K/uL Basophils # (Auto) 0.03 K/uL RDW Standard Deviation 52.3 fL RDW Coefficient of Variation 23.0 % Immature Granulocyte % (Auto) 0.1 % Immature Granulocyte # (Auto) 0.01 K/uL Hypochromasia PRESENT Anisocytosis PRESENT Microcytosis PRESENT Sodium Level 140 mmol/L Potassium Level 3.8 mmol/L Chloride Level 105 mmol/L Carbon Dioxide Level 30 mmol/L Anion Gap 5.0 mmol/L Blood Urea Nitrogen 11 mg/dl Creatinine 0.82 mg/dl Est Creatinine Clear Calc Drug Dose 82.9 ml/min Estimated GFR () 104.5 Estimated GFR (Non- 90.1 BUN/Creatinine Ratio 12.8 Random Glucose 79 mg/dl Calcium Level 8.8 mg/dl Phosphorus Level 3.4 mg/dl Magnesium Level 2.2 mg/dl A/P: UGI secondary to PUD with VV s/p injxn/cautery POD #3 - PPI IV until tomorrow, then switch to PO BID. I presume nausea is secondary to ulcer - trial of Reglan. Diet as tolerated. Ok for d/c tomorrow if tolerates diet. Dr. Blanchard to arrange f/u EGD
[2017-11-05] MEDS: hydrOXYzine HCL 25 MG TAB PO SCH (21:04)
[2017-11-05] MEDS: PANTOprazole SOD 40 MG TAB PO SCH (21:05)
[2017-11-06 06:23] LABS: HEMATOCRIT 31.6 % (37-47); HEMOGLOBIN 9.4 g/dL (12.0-16.0); MEAN CELL VOLUME 65.4 fL (80-100); MEAN CORPUSCULAR HEMOGLOBIN 19.5 pg (25-34); MEAN CORPUSCULAR HGB CONC 29.7 g/dl (32-36); MEAN PLATELET VOLUME 8.6 fL (7.4-10.4); PLATELET COUNT 467 K/uL (130-400); RED CELL DISTRIBUTION WIDTH CV 23.3 % (11.5-14.5); WHITE BLOOD COUNT 5.63 K/uL (4.8-10.8)
[2017-11-06] MEDS: ONDANSETRON INJ 2 MG/ML 2 ML VIAL IV PRN (06:28)
[2017-11-06 06:39] LABS: CALCIUM 8.7 mg/dl (8.5-10.1); CREATININE 0.81 mg/dl (0.60-1.20); POTASSIUM 3.7 mmol/L (3.5-5.1)
[2017-11-06 06:41] LABS: PHOSPHORUS 4.1 mg/dl (2.5-4.9)
[2017-11-06] MEDS: BUTALBITAL/ACETAMIN/CAFFEINE TAB PO PRN ×2 (07:03→17:11)
[2017-11-06 07:13] LABS: BASO % 0.7 %; BASO ABS # 0.04 K/uL (0-0.2); EOS % 5.2 %; EOS ABS # 0.29 K/uL (0-0.5); IG# 0.01 K/uL (0.00-0.02); LYMPH % 42.5 %; LYMPH ABS # 2.39 K/uL (1.2-3.4); MONO % 9.2 %; MONO ABS # 0.52 K/uL (0.11-0.59); NEUT % 42.2 %; NEUT ABS # 2.38 K/uL (1.4-6.5)
[2017-11-06 07:15] VITALS: BP 100/67; PULSE 57; TEMP 36.6; O2SAT 98
--- NOTE | 2017-11-06 08:02 | Anesthesiology Progress Note ---
Anesthesia Post Op Note Date & Time Nov 06, 2017 at 08:01 Vital Signs Vital Signs Past 12 Hours Date Time Temp Pulse Resp B/P (MAP) Pulse Ox O2 Delivery O2 Flow Rate FiO2 11/06/17 07:15 36.6 57 15 100/67 (78) 98 Room Air 11/06/17 00:00 Room Air Notes Mental Status: alert / awake / arousable, participated in evaluation Pt Amnestic to Procedure: Yes Nausea / Vomiting: adequately controlled Pain: adequately controlled Airway Patency, RR, SpO2: stable & adequate BP & HR: stable & adequate Hydration State: stable & adequate Anesthetic Complications: no major complications apparent
[2017-11-06] MEDS: METOCLOPRAMIDE HCL INJ 5 MG/ML 2 ML VIAL IV. SCH ×3 (08:22→15:54)
[2017-11-06] MEDS: CHECK SCOPOLAMINE PATCH PLACEMENT SCH ×3 (08:22→16:01)
[2017-11-06] MEDS: CIPROFLOXACIN 500 MG TAB PO SCH ×2 (08:23→21:08)
[2017-11-06] MEDS: PANTOprazole SOD 40 MG TAB PO SCH ×2 (08:23→21:09)
[2017-11-06] MEDS: NITROFURANTOIN MONOHYDRATE 100 MG CAP PO SCH ×2 (08:24→21:08)
--- NOTE | 2017-11-06 09:21 | Gastroenterology Progress Note ---
Progress Note Date of Service: Nov 06, 2017 Subjective Pt evaluation today including: conversation w/ patient, physical exam, chart review, lab review, review of inpatient medication list Patient reports having a migraine headache today with associated nausea and " dry heaves". Mild epigastric pain rated 4/10 in intensity without radiation. No bloating or overt GIB. Has not had a bowel movement. Was started on Reglan 5 mg IV TID by Dr. Thornton. She has received her first dose this morning. Has been transitioned to Protonix 40 mg BID. No other complaints. Review of Systems Constitutional: + fatigue, No fever, No chills Respiratory: No shortness of breath, No dyspnea on exertion Cardiac: No chest pain Abdomen: + see HPI Medications Current Inpatient Medications Medications (Trade) Dose Ordered Sig/Demetria Route Start Time Stop Time Status Last Admin Dose Admin Ioversol (Optiray 320) 100 ml UD PRN IV 11/03/17 01:00 11/07/17 00:59 Acetaminophen (Tylenol Tab) 650 mg Q4H PRN PO 11/03/17 03:30 12/03/17 03:29 11/05/17 00:38 650 MG Ondansetron HCl (Zofran Inj) 4 mg Q6H PRN IV 11/03/17 03:30 12/03/17 03:29 11/06/17 06:28 4 MG Miscellaneous (Remove Transderm-Scop Patch) 1 ea Q72H N/A 11/06/17 17:45 11/06/17 17:46 Miscellaneous Information (Check Scopolamine Patch Placement) 1 ea QS N/A 11/04/17 00:00 12/04/17 00:00 11/06/17 08:22 1 EA Nitrofurantoin Macrocrystals (Macrobid Cap) 100 mg BID PO 11/04/17 21:00 11/09/17 09:01 11/06/17 08:24 100 MG Hydroxyzine HCl (Vistaril Tab) 25 mg HS PO 11/05/17 21:00 12/03/17 08:59 11/05/17 21:04 25 MG Pantoprazole Sodium (Protonix Tab) 40 mg BID PO 11/05/17 21:00 11/09/17 20:59 11/06/17 08:23 40 MG Ciprofloxacin (Cipro Tab) 500 mg BID PO 11/05/17 21:00 11/09/17 20:59 11/06/17 08:23 500 MG Acetaminophen/ Butalbital/ Caffeine (Fioricet Tab) 1-2 TABLETS ... Q4H PRN PO 11/05/17 16:15 12/05/17 16:14 11/06/17 07:03 1 TAB Metoclopramide HCl (Reglan Inj) 5 mg TIDM IV. 11/06/17 08:00 12/06/17 07:59 11/06/17 08:22 5 MG Objective Vital Signs Date Time Temp Pulse Resp B/P (MAP) Pulse Ox O2 Delivery O2 Flow Rate FiO2 11/06/17 07:15 36.6 57 15 100/67 (78) 98 Room Air 11/06/17 00:00 Room Air 11/05/17 20:00 Room Air 11/05/17 16:00 95 Room Air 11/05/17 14:51 36.9 58 18 96/56 (69) 97 Room Air Physical Exam General Appearance: no apparent distress Eyes: EOMI ENT: hearing grossly normal Neck: supple Respiratory/Chest: lungs clear, normal breath sounds, no respiratory distress Cardiovascular: regular rate, rhythm, no gallop, no murmur Abdomen: normal bowel sounds, soft, + tenderness (epigastric ) Neurologic/Psych: alert, normal mood/affect, oriented x 3 Skin: warm/dry Laboratory Results Last 24 Hours Test 11/06/17 06:00 White Blood Count 5.63 K/uL Red Blood Count 4.83 M/uL Hemoglobin 9.4 g/dL Hematocrit 31.6 % Mean Corpuscular Volume 65.4 fL Mean Corpuscular Hemoglobin 19.5 pg Mean Corpuscular Hemoglobin Concent 29.7 g/dl Platelet Count 467 K/uL Mean Platelet Volume 8.6 fL Neutrophils (%) (Auto) 42.2 % Lymphocytes (%) (Auto) 42.5 % Monocytes (%) (Auto) 9.2 % Eosinophils (%) (Auto) 5.2 % Basophils (%) (Auto) 0.7 % Neutrophils # (Auto) 2.38 K/uL Lymphocytes # (Auto) 2.39 K/uL Monocytes # (Auto) 0.52 K/uL Eosinophils # (Auto) 0.29 K/uL Basophils # (Auto) 0.04 K/uL RDW Standard Deviation 54.0 fL RDW Coefficient of Variation 23.3 % Immature Granulocyte % (Auto) 0.2 % Immature Granulocyte # (Auto) 0.01 K/uL Hypochromasia PRESENT Anisocytosis PRESENT Microcytosis PRESENT Sodium Level 139 mmol/L Potassium Level 3.7 mmol/L Chloride Level 103 mmol/L Carbon Dioxide Level 33 mmol/L Anion Gap 3.0 mmol/L Blood Urea Nitrogen 8 mg/dl Creatinine 0.81 mg/dl Est Creatinine Clear Calc Drug Dose 83.9 ml/min Estimated GFR () 106.0 Estimated GFR (Non- 91.5 BUN/Creatinine Ratio 10.1 Random Glucose 79 mg/dl Calcium Level 8.7 mg/dl Phosphorus Level 4.1 mg/dl Magnesium Level 2.0 mg/dl Vitamin B12 Level 1122 pg/mL Folate 13.21 ng/mL Assessment and Plan Patient is a 41 year old female with abdominal pain, nausea, & vomiting who presents with anemia found to have gastric ulcers with stigmata status post endoscopic hemostasis. 1. Continue Reglan 5 mg IV TID until nausea improves. Would not recommend continuation of this medication at discharge. 2. Continue Protonix 40 mg PO BID. 3. Clear liquid diet to be advanced as tolerated. 4. Supportive medical management per primary team. Agree with MAURICIO Gan as above Abd: Soft, tender, ND, +BS Pathology returned with H. pylori + results. Discussed with pharmacy, and due to patient's multiple allergies including Amoxil and Biaxin, she will complete 14 days of Bismuth, Doxycycline and Flagyl x 14 days along with twice daily PPI indefinitely. Repeat EGD in 8 weeks to ensure ulcer healing.
[2017-11-06] MEDS ORDERED: SUMATRIPTAN SUCCINATE 6 MG/0.5 ML VIAL SQ ONE (10:45)
[2017-11-06 15:10] VITALS: BP 92/56; PULSE 60; TEMP 36.7; O2SAT 97
[2017-11-06 16:00] VITALS: O2SAT 97
--- NOTE | 2017-11-06 16:09 | Progress Note ---
Subjective Date of Service: Nov 06, 2017. Subjective Pt evaluation today including: conversation w/ patient, physical exam, lab review, conversation w/ leasing sales consultant, review of inpatient medication list Pain: epigastric pain, severe migraine headache PO Intake: poor Voiding: no voiding problems c/o severe migraine, worse than normal, typically relieved with OTC medications poor appetite, still with nausea, on Reglan discussed with Carine Santoyo with GI labs reviewed, Hb up to 9.4 Problem List Medical Problems: (1) Anemia Status: Acute (2) Dehydration Status: Acute (3) Gastritis Status: Acute (4) Intractable abdominal pain Status: Acute (5) Intractable vomiting Status: Acute (6) Iron deficiency anemia Status: Acute (7) Pelvic pain Status: Acute (8) Vomiting Status: Acute Review of Systems Constitutional: + problem reported (migraine headache) Abdomen: + pain, + nausea, + vomiting All Other Systems: Reviewed and Negative Medications Current Inpatient Medications Medications (Trade) Dose Ordered Sig/Demetria Route Start Time Stop Time Status Last Admin Dose Admin Ioversol (Optiray 320) 100 ml UD PRN IV 11/03/17 01:00 11/07/17 00:59 Acetaminophen (Tylenol Tab) 650 mg Q4H PRN PO 11/03/17 03:30 12/03/17 03:29 11/05/17 00:38 650 MG Ondansetron HCl (Zofran Inj) 4 mg Q6H PRN IV 11/03/17 03:30 12/03/17 03:29 11/06/17 06:28 4 MG Miscellaneous (Remove Transderm-Scop Patch) 1 ea Q72H N/A 11/06/17 17:45 11/06/17 17:46 Miscellaneous Information (Check Scopolamine Patch Placement) 1 ea QS N/A 11/04/17 00:00 12/04/17 00:00 11/06/17 08:22 1 EA Nitrofurantoin Macrocrystals (Macrobid Cap) 100 mg BID PO 11/04/17 21:00 11/09/17 09:01 11/06/17 08:24 100 MG Hydroxyzine HCl (Vistaril Tab) 25 mg HS PO 11/05/17 21:00 12/03/17 08:59 11/05/17 21:04 25 MG Pantoprazole Sodium (Protonix Tab) 40 mg BID PO 11/05/17 21:00 11/09/17 20:59 11/06/17 08:23 40 MG Ciprofloxacin (Cipro Tab) 500 mg BID PO 11/05/17 21:00 11/09/17 20:59 11/06/17 08:23 500 MG Acetaminophen/ Butalbital/ Caffeine (Fioricet Tab) 1-2 TABLETS ... Q4H PRN PO 11/05/17 16:15 12/05/17 16:14 11/06/17 07:03 1 TAB Metoclopramide HCl (Reglan Inj) 5 mg TIDM IV. 11/06/17 08:00 12/06/17 07:59 11/06/17 11:45 5 MG Objective Vital Signs Date Time Temp Pulse Resp B/P (MAP) Pulse Ox O2 Delivery O2 Flow Rate FiO2 11/06/17 15:10 36.7 60 15 92/56 (68) 97 Room Air 11/06/17 08:00 Room Air 11/06/17 07:15 36.6 57 15 100/67 (78) 98 Room Air 11/06/17 00:00 Room Air 11/05/17 20:00 Room Air 11/05/17 16:00 95 Room Air Physical Exam General Appearance: no apparent distress, + thin Eyes: normal inspection, EOMI, sclerae normal Neck: supple, no adenopathy, no JVD, trachea midline Respiratory/Chest: chest non-tender, lungs clear, normal breath sounds, no respiratory distress, no accessory muscle use Cardiovascular: regular rate, rhythm, no edema, no gallop, no JVD, no murmur Abdomen: normal bowel sounds, soft, no organomegaly, + tenderness (epigastric) Extremities: normal range of motion, non-tender, normal inspection, no pedal edema, no calf tenderness, pelvis stable 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, no motor/sensory deficits, alert, normal mood/affect, oriented x 3 Skin: normal color, warm/dry, no rash Lymphatic: no adenopathy Laboratory Results Last 24 Hours Test 11/06/17 06:00 White Blood Count 5.63 K/uL Red Blood Count 4.83 M/uL Hemoglobin 9.4 g/dL Hematocrit 31.6 % Mean Corpuscular Volume 65.4 fL Mean Corpuscular Hemoglobin 19.5 pg Mean Corpuscular Hemoglobin Concent 29.7 g/dl Platelet Count 467 K/uL Mean Platelet Volume 8.6 fL Neutrophils (%) (Auto) 42.2 % Lymphocytes (%) (Auto) 42.5 % Monocytes (%) (Auto) 9.2 % Eosinophils (%) (Auto) 5.2 % Basophils (%) (Auto) 0.7 % Neutrophils # (Auto) 2.38 K/uL Lymphocytes # (Auto) 2.39 K/uL Monocytes # (Auto) 0.52 K/uL Eosinophils # (Auto) 0.29 K/uL Basophils # (Auto) 0.04 K/uL RDW Standard Deviation 54.0 fL RDW Coefficient of Variation 23.3 % Immature Granulocyte % (Auto) 0.2 % Immature Granulocyte # (Auto) 0.01 K/uL Hypochromasia PRESENT Anisocytosis PRESENT Microcytosis PRESENT Sodium Level 139 mmol/L Potassium Level 3.7 mmol/L Chloride Level 103 mmol/L Carbon Dioxide Level 33 mmol/L Anion Gap 3.0 mmol/L Blood Urea Nitrogen 8 mg/dl Creatinine 0.81 mg/dl Est Creatinine Clear Calc Drug Dose 83.9 ml/min Estimated GFR () 106.0 Estimated GFR (Non- 91.5 BUN/Creatinine Ratio 10.1 Random Glucose 79 mg/dl Calcium Level 8.7 mg/dl Phosphorus Level 4.1 mg/dl Magnesium Level 2.0 mg/dl Vitamin B12 Level 1122 pg/mL Folate 13.21 ng/mL Assessment and Plan 41 y/o F Hx migraines, chronic pain, iron-deficient anemia admitted November 03, 2017 because of severe anemia possible GI bleeding severe anemia acute blood loss from GI bleeding with hemoglobin at 6 transfused two units, Hb steadily rising, up to 9.4 today EGD was done on November 03, 2017, report that was visible vessel s/p cautery/ injxn post procedure day 2 today without evidence of recurrent bleed, hemoglobin stable GI recommend Cont BID IV PPI x 72 hours which is now complete, continue oral Protonix twice daily GI bleeding likely caused by NSAID, avoid NSAID in future gastritis per abdominal CT Possible UTI upon admission, there was no urine culture sent, treat with cipro for total 7 days, today is day 5 out of 7 afebrile, WBC normal Nausea/vomiting Reglan TID for short term to improve symptoms little improvement today Migraine headache: severe pain today Imitrex 6mg SC given x 1, monitor for improvement Chronic back pain Hypokalemia - replaced History of hysterectomy SCD for DVT prophylaxis, GI prophylaxis is covered, patient is full code Continued [facility] stay due to: multiple IV medications needed Discharge planning: uncertain
[2017-11-06] MEDS: NSS + 20MEQ KCL 1000ML 1,000 ML IV SCH (17:07)
[2017-11-06] MEDS ORDERED: METOCLOPRAMIDE HCL INJ 5 MG/ML 2 ML VIAL IV. STA (20:44)
[2017-11-06] MEDS: DOXYCYCLINE HYCLATE 100 MG CAP PO SCH (21:07)
[2017-11-06] MEDS: BISMUTH SUBSALICYLATE 262 MG CHEW PO SCH (21:07)
[2017-11-06] MEDS: hydrOXYzine HCL 25 MG TAB PO SCH (21:09)
[2017-11-06] MEDS: METRONIDAZOLE 500 MG TAB PO SCH (21:15)
[2017-11-06 22:27] VITALS: BP 109/71; PULSE 59; TEMP 36.2; O2SAT 98
[2017-11-07] MEDS: BUTALBITAL/ACETAMIN/CAFFEINE TAB PO PRN ×2 (01:40→06:05)
[2017-11-07] MEDS: NSS + 20MEQ KCL 1000ML 1,000 ML IV SCH ×3 (02:44→21:50)
[2017-11-07] MEDS: ONDANSETRON INJ 2 MG/ML 2 ML VIAL IV PRN (05:06)
[2017-11-07 05:16] VITALS: BP 133/86; PULSE 58; TEMP 36.4; O2SAT 97
[2017-11-07] MEDS: PANTOprazole SOD 40 MG TAB PO SCH ×2 (05:32→21:50)
[2017-11-07] MEDS: BISMUTH SUBSALICYLATE 262 MG CHEW PO SCH ×4 (05:33→21:49)
[2017-11-07 07:06] VITALS: BP 114/73; PULSE 56; TEMP 36.7; O2SAT 97
[2017-11-07] MEDS: CHECK SCOPOLAMINE PATCH PLACEMENT SCH ×4 (07:45→23:57)
[2017-11-07] MEDS: METOCLOPRAMIDE HCL INJ 5 MG/ML 2 ML VIAL IV. SCH ×3 (07:47→16:41)
[2017-11-07] MEDS: METRONIDAZOLE 500 MG TAB PO SCH ×2 (08:34→13:30)
[2017-11-07] MEDS: CIPROFLOXACIN 500 MG TAB PO SCH (08:34)
[2017-11-07] MEDS: DOXYCYCLINE HYCLATE 100 MG CAP PO SCH ×2 (08:34→21:48)
[2017-11-07] MEDS: NITROFURANTOIN MONOHYDRATE 100 MG CAP PO SCH ×2 (08:34→21:49)
[2017-11-07] MEDS ORDERED: SUMATRIPTAN SUCCINATE 6 MG/0.5 ML VIAL SQ ONE (09:45)
--- NOTE | 2017-11-07 10:00 | Gastroenterology Progress Note ---
Progress Note Date of Service: November 07, 2017 Subjective Pt evaluation today including: conversation w/ patient, physical exam, chart review, lab review, review of inpatient medication list Patient reports having some chest pain last evening. A stat ECG and troponin were ordered and negative for any acute cardiac process. She reports resolved symptoms this morning. Continues with some nausea and abdominal pain as well as headache. Pathology yesterday with positive H pylori infection. Due to multiple antibiotic allergies, was started on Pepto Bismol, Doxycycline, Flagyl in addition to BID Protonix. Diet has been advanced. Still with no bm since admission. Review of Systems Constitutional: No fever, No chills Respiratory: No problem reported Cardiac: + see HPI Abdomen: + see HPI Psych: No problem reported Medications Current Inpatient Medications Medications (Trade) Dose Ordered Sig/Demetria Route Start Time Stop Time Status Last Admin Dose Admin Acetaminophen (Tylenol Tab) 650 mg Q4H PRN PO 11/03/17 03:30 12/03/17 03:29 11/05/17 00:38 650 MG Ondansetron HCl (Zofran Inj) 4 mg Q6H PRN IV 11/03/17 03:30 12/03/17 03:29 11/07/17 05:06 4 MG Miscellaneous Information (Check Scopolamine Patch Placement) 1 ea QS N/A 11/04/17 00:00 12/04/17 00:00 11/06/17 16:01 1 EA Nitrofurantoin Macrocrystals (Macrobid Cap) 100 mg BID PO 11/04/17 21:00 11/09/17 09:01 11/07/17 08:34 100 MG Hydroxyzine HCl (Vistaril Tab) 25 mg HS PO 11/05/17 21:00 12/03/17 08:59 11/06/17 21:09 25 MG Pantoprazole Sodium (Protonix Tab) 40 mg BID PO 11/05/17 21:00 11/09/17 20:59 11/07/17 05:32 40 MG Ciprofloxacin (Cipro Tab) 500 mg BID PO 11/05/17 21:00 11/09/17 20:59 11/07/17 08:34 500 MG Acetaminophen/ Butalbital/ Caffeine (Fioricet Tab) 1-2 TABLETS ... Q4H PRN PO 11/05/17 16:15 12/05/17 16:14 11/07/17 06:05 1 TAB Metoclopramide HCl (Reglan Inj) 5 mg TIDM IV. 11/06/17 08:00 12/06/17 07:59 11/07/17 07:47 5 MG Potassium Chloride/Sodium Chloride 1,000 ml @ 100 mls/hr Q10H IV 11/06/17 16:30 12/06/17 16:29 11/07/17 02:44 100 MLS/HR Bismuth Subsalicylate (Pepto-Bismol Chew Tab) 1 tab QID PO 11/06/17 21:00 11/20/17 17:01 11/07/17 05:33 1 TAB Doxycycline Hyclate (Vibramycin Cap) 100 mg BID PO 11/06/17 21:00 11/20/17 09:01 11/07/17 08:34 100 MG Metronidazole (Flagyl Tab) 500 mg TID PO 11/06/17 21:00 11/20/17 14:01 11/07/17 08:34 500 MG Sumatriptan Succinate (Imitrex Sq Inj) 6 mg NOW SQ 11/07/17 09:45 12/07/17 09:44 UNV Objective Vital Signs Date Time Temp Pulse Resp B/P (MAP) Pulse Ox O2 Delivery O2 Flow Rate FiO2 11/07/17 08:00 Room Air 11/07/17 07:06 36.7 56 16 114/73 (87) 97 Room Air 11/07/17 05:16 36.4 58 18 133/86 (102) 97 Room Air 11/07/17 01:30 Room Air 11/06/17 22:27 36.2 59 18 109/71 (84) 98 Room Air 11/06/17 16:00 97 Room Air 11/06/17 15:10 36.7 60 15 92/56 (68) 97 Room Air Physical Exam General Appearance: no apparent distress Eyes: EOMI ENT: hearing grossly normal Neck: supple Respiratory/Chest: lungs clear, normal breath sounds, no respiratory distress Cardiovascular: regular rate, rhythm, no gallop, no murmur Abdomen: normal bowel sounds, soft, + tenderness (upper abdomen) Neurologic/Psych: alert, normal mood/affect, oriented x 3 Skin: warm/dry Laboratory Results Last 24 Hours Test 11/07/17 05:34 Troponin I < 0.015 ng/ml Assessment and Plan Patient is a 41 year old female with abdominal pain, nausea, & vomiting who presents with anemia found to have gastric ulcers with stigmata status post endoscopic hemostasis in the setting of NSAID use and H pylori infection. 1. Continue Reglan 5 mg IV TID until nausea improves. Would not recommend continuation of this medication at discharge. 2. Continue Protonix 40 mg PO BID. 3. Continue Pepto Bismol 1 tab QID, Doxycycline 100 mg BID and Flagyl 500 mg TID x 14 days. 4. Repeat EGD in 8 weeks to re-evaluate gastric healing and to ensure eradication of H pylori infection. 5. Encouraged ambulation to stimulate GI motility. If no bm today, would start MiraLAX 17 g in 8 ounces of liquid daily as needed. Agree with MAURICIO Gan as above Abd: Soft, NT, ND, +BS Continue current therapy Repeat EGD in 8 weeks
--- NOTE | 2017-11-07 10:34 | Progress Note ---
Subjective Date of Service: November 07, 2017. Subjective Pt evaluation today including: conversation w/ patient, physical exam, lab review, conversation w/ hr shared services consultant Pain: headache, epigastric pain PO Intake: poor, difficult time with antibiotics Voiding: no voiding problems patient had some chest pain and dyspnea last evening, lasted about 30 minutes she has had panic attacks in the past, she said this was different EKG was sinus bradycardia, no ST changes, troponin negative no further episodes this AM chief complaint is again a migraine headache, Imitrex helped yesterday tried some bites of food, took antibiotics, caused her to have dry heaves reviewed pathology and discussed with Dr. Blanchard, has H pylori infection needs Bismuth, Protonix, Doxycycline and Flagyl for 14 days, will be difficult for her to tolerate no labs today Problem List Medical Problems: (1) Anemia Status: Acute (2) Dehydration Status: Acute (3) Gastritis Status: Acute (4) Intractable abdominal pain Status: Acute (5) Intractable vomiting Status: Acute (6) Iron deficiency anemia Status: Acute (7) Pelvic pain Status: Acute (8) Vomiting Status: Acute Review of Systems Constitutional: + weakness, + fatigue, + problem reported (migraine headache) Abdomen: + pain (epigastric), + nausea, + vomiting All Other Systems: Reviewed and Negative Medications Current Inpatient Medications Medications (Trade) Dose Ordered Sig/Demetria Route Start Time Stop Time Status Last Admin Dose Admin Acetaminophen (Tylenol Tab) 650 mg Q4H PRN PO 11/03/17 03:30 12/03/17 03:29 11/05/17 00:38 650 MG Ondansetron HCl (Zofran Inj) 4 mg Q6H PRN IV 11/03/17 03:30 12/03/17 03:29 11/07/17 05:06 4 MG Miscellaneous Information (Check Scopolamine Patch Placement) 1 ea QS N/A 11/04/17 00:00 12/04/17 00:00 11/06/17 16:01 1 EA Nitrofurantoin Macrocrystals (Macrobid Cap) 100 mg BID PO 11/04/17 21:00 11/09/17 09:01 11/07/17 08:34 100 MG Hydroxyzine HCl (Vistaril Tab) 25 mg HS PO 11/05/17 21:00 12/03/17 08:59 11/06/17 21:09 25 MG Pantoprazole Sodium (Protonix Tab) 40 mg BID PO 11/05/17 21:00 11/09/17 20:59 11/07/17 05:32 40 MG Ciprofloxacin (Cipro Tab) 500 mg BID PO 11/05/17 21:00 11/09/17 20:59 11/07/17 08:34 500 MG Acetaminophen/ Butalbital/ Caffeine (Fioricet Tab) 1-2 TABLETS ... Q4H PRN PO 11/05/17 16:15 12/05/17 16:14 11/07/17 06:05 1 TAB Metoclopramide HCl (Reglan Inj) 5 mg TIDM IV. 11/06/17 08:00 12/06/17 07:59 11/07/17 07:47 5 MG Potassium Chloride/Sodium Chloride 1,000 ml @ 100 mls/hr Q10H IV 11/06/17 16:30 12/06/17 16:29 11/07/17 02:44 100 MLS/HR Bismuth Subsalicylate (Pepto-Bismol Chew Tab) 1 tab QID PO 11/06/17 21:00 11/20/17 17:01 11/07/17 05:33 1 TAB Doxycycline Hyclate (Vibramycin Cap) 100 mg BID PO 11/06/17 21:00 11/20/17 09:01 11/07/17 08:34 100 MG Metronidazole (Flagyl Tab) 500 mg TID PO 11/06/17 21:00 11/20/17 14:01 11/07/17 08:34 500 MG Sumatriptan Succinate (Imitrex Sq Inj) 6 mg NOW SQ 11/07/17 09:45 12/07/17 09:44 UNV Objective Vital Signs Date Time Temp Pulse Resp B/P (MAP) Pulse Ox O2 Delivery O2 Flow Rate FiO2 11/07/17 08:00 Room Air 11/07/17 07:06 36.7 56 16 114/73 (87) 97 Room Air 11/07/17 05:16 36.4 58 18 133/86 (102) 97 Room Air 11/07/17 01:30 Room Air 11/06/17 22:27 36.2 59 18 109/71 (84) 98 Room Air 11/06/17 16:00 97 Room Air 11/06/17 15:10 36.7 60 15 92/56 (68) 97 Room Air Physical Exam General Appearance: no apparent distress, + thin Eyes: normal inspection, EOMI ENT: normal ENT inspection, hearing grossly normal, pharynx normal Neck: supple, no adenopathy, no JVD, trachea midline Respiratory/Chest: chest non-tender, lungs clear, normal breath sounds, no respiratory distress, no accessory muscle use Cardiovascular: regular rate, rhythm, no edema, no gallop, no JVD, no murmur Abdomen: normal bowel sounds, non tender, soft, no organomegaly Extremities: normal range of motion, non-tender, normal inspection, no pedal edema, no calf tenderness, pelvis stable 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, no motor/sensory deficits, alert, normal mood/affect, oriented x 3 Skin: normal color, warm/dry, no rash Laboratory Results Last 24 Hours Test 11/07/17 05:34 Troponin I < 0.015 ng/ml Assessment and Plan 41 y/o F Hx migraines, chronic pain, iron-deficient anemia admitted November 03, 2017 because of severe anemia possible GI bleeding severe anemia acute blood loss from GI bleeding with hemoglobin at 6 on admission transfused two units, Hb steadily rising, up to 9.4 yesterday, will repeat tomorrow EGD was done on November 03, 2017, report that was visible vessel s/p cautery/ injxn post procedure day 3 today without evidence of recurrent bleed, hemoglobin stable H pylori infection: GI recommends Bismuth and PPI BID x 14 days due to allergies, will treat with Flagyl 500mg TID and Doxycycline 100mg BID patient having difficult time tolerating these, nausea and dry heaves Possible UTI upon admission, there was no urine culture sent, treated with cipro for total 5 days, now on Flagyl and Doxy with H pylori infection afebrile, WBC normal no further treatment for UTI Nausea/vomiting Reglan TID for short term to improve symptoms little improvement today, PO antibiotics making worse Migraine headache: severe pain again today, was better yesterday after Imitrex Imitrex 6mg SC again today Chronic back pain Hypokalemia - replaced History of hysterectomy SCD for DVT prophylaxis, GI prophylaxis is covered, patient is full code Continued [facility] stay due to: multiple IV medications needed Discharge planning: uncertain
[2017-11-07 15:44] VITALS: BP 124/77; PULSE 80; TEMP 37.3; O2SAT 98
[2017-11-07 15:56] VITALS: O2SAT 98
--- NOTE | 2017-11-07 21:15 | Progress Note ---
Post ICU Progress Note Date & Time November 07, 2017 at 20:48 Vital Signs Vital Signs Past 12 Hours Date Time Temp Pulse Resp B/P (MAP) Pulse Ox O2 Delivery O2 Flow Rate FiO2 11/07/17 15:56 98 Room Air 3.0 11/07/17 15:44 37.3 80 20 124/77 (93) 98 Room Air Notes Mental Status: alert / awake Nausea / Vomiting: see Notes Pain: adequately controlled Airway Patency, RR, SpO2: stable & adequate BP & HR: stable & adequate Patient is a 41-year-old female who was initially admitted to the ICU with profound anemia in the setting of upper GI bleed with associated gastritis. Upper endoscopy confirmed gastric erosions with exposure of superficial blood vessel which was thought to be likely culprit. Patient did have a slight drop in her H&H after EGD, however her H&H has remained stable recently. She was subsequently downgraded from the ICU and of note, patient had biopsy performed which was found to be positive for H pylori. Patient was instituted with triple therapy, however, given multiple medication allergies, specifically clarithromycin and amoxicillin, patient was subsequently placed on Flagyl and doxycycline. In conversation with patient, she reports that she has been feeling better than when she initially presented. Her main complaint is persistent nausea and vomiting after taking her antibiotics. She also complains of bad taste in her mouth as well. I am suspicious that the patient may be sensitive to metronidazole dosing given her description. This certainly does not represent a anaphylaxis reaction to the medications, however, I suspect tolerance and subsequent compliance with medication regime will become an issue with the patient. Unfortunately, with the patient's many specific antibiotic intolerances/allergies, she makes changing antibiotic course much more difficult. On review of current literature, the patient certainly has limited options and it appears as though she has been started on the most appropriate treatment course based on the above. There does appear to be some utility in Levaquin based therapies, however they are much less researched in the [place]. This may be an option for the patient if she continues to do poorly, however, I anticipate that antibiotic selection and sensitivity will continue to persist.. Certainly, I will defer to GI for their recommendations, but the patient's combination of allergies and need for therapy were too interesting not to research further. Consider outpatient follow up in 1 to 2 weeks with: GI, PCP Repeat imaging needed: Per primary service. Follow up cultures: None at this point. Reviewed progress notes, labs, and inpatient medication list Continue current management Additional recommendations: As above. Thank you for allowing us to participate in the care of this patient. At this time, Critical Care Services will sign off on this case. Please feel free to reconsult as needed. Consults & Procedures Consultants: Gastroenterology Procedures: EGD November 03, 2017
[2017-11-07] MEDS: hydrOXYzine HCL 25 MG TAB PO SCH (21:49)
[2017-11-07] MEDS: METRONIDAZOLE / NSS 500 MG in PREMIXED NSS 100 ML IV SCH (21:50)
[2017-11-08] MEDS: ONDANSETRON INJ 2 MG/ML 2 ML VIAL IV PRN ×3 (00:01→12:05)
[2017-11-08] MEDS: BUTALBITAL/ACETAMIN/CAFFEINE TAB PO PRN (00:27)
[2017-11-08 00:38] VITALS: BP 109/71; PULSE 68; TEMP 36.7; O2SAT 97
[2017-11-08] MEDS: METRONIDAZOLE / NSS 500 MG in PREMIXED NSS 100 ML IV SCH ×3 (06:05→21:11)
[2017-11-08 06:48] LABS: HEMATOCRIT 32.1 % (37-47); HEMOGLOBIN 9.4 g/dL (12.0-16.0); MEAN CORPUSCULAR HGB CONC 29.3 g/dl (32-36); MEAN PLATELET VOLUME 8.9 fL (7.4-10.4); PLATELET COUNT 451 K/uL (130-400); RED CELL DISTRIBUTION WIDTH CV 24.2 % (11.5-14.5); RED CELL DISTRIBUTION WIDTH SD 55.3 fL (36.4-46.3); WHITE BLOOD COUNT 5.58 K/uL (4.8-10.8)
[2017-11-08] MEDS: CHECK SCOPOLAMINE PATCH PLACEMENT SCH ×2 (07:00→15:34)
[2017-11-08] MEDS: PANTOprazole SOD 40 MG TAB PO SCH ×2 (07:15→21:11)
[2017-11-08] MEDS: NITROFURANTOIN MONOHYDRATE 100 MG CAP PO SCH ×2 (07:15→21:11)
[2017-11-08] MEDS: METOCLOPRAMIDE HCL INJ 5 MG/ML 2 ML VIAL IV. SCH ×3 (07:16→16:54)
[2017-11-08] MEDS: DOXYCYCLINE HYCLATE 100 MG CAP PO SCH ×2 (07:16→21:11)
[2017-11-08] MEDS: BISMUTH SUBSALICYLATE 262 MG CHEW PO SCH ×4 (07:16→21:11)
[2017-11-08] MEDS: NSS + 20MEQ KCL 1000ML 1,000 ML IV SCH (07:16)
[2017-11-08 07:21] VITALS: BP 111/65; PULSE 61; TEMP 36.8; O2SAT 98
[2017-11-08 07:22] LABS: CALCIUM 8.6 mg/dl (8.5-10.1); CREATININE 0.73 mg/dl (0.60-1.20); POTASSIUM 3.9 mmol/L (3.5-5.1)
[2017-11-08 07:31] LABS: BASO % 0.5 %; BASO ABS # 0.03 K/uL (0-0.2); EOS % 7.7 %; EOS ABS # 0.43 K/uL (0-0.5); IG# 0.01 K/uL (0.00-0.02); LYMPH % 41.9 %; LYMPH ABS # 2.34 K/uL (1.2-3.4); MONO % 9.5 %; MONO ABS # 0.53 K/uL (0.11-0.59); NEUT % 40.2 %; NEUT ABS # 2.24 K/uL (1.4-6.5)
[2017-11-08 11:55] LABS: ALBUMIN 2.9 gm/dl (3.4-5.0); ALKALINE PHOSPHATASE 138 U/L (45-117); ALT/SGPT 21 U/L (12-78); AST/SGOT 24 U/L (15-37); LIPASE 63 U/L (73-393); TOTAL PROTEIN 6.8 gm/dl (6.4-8.2)
[2017-11-08] MEDS ORDERED: SUMATRIPTAN SUCCINATE 6 MG/0.5 ML VIAL SQ ONE (12:30)
[2017-11-08 16:00] VITALS: O2SAT 98
[2017-11-08 16:11] VITALS: BP 100/65; PULSE 70; TEMP 36.2; O2SAT 98
[2017-11-08] MEDS: hydrOXYzine HCL 25 MG TAB PO SCH (21:11)
--- NOTE | 2017-11-08 21:36 | Progress Note ---
Subjective Date of Service: November 08, 2017. Subjective Pt evaluation today including: conversation w/ patient, physical exam, lab review, review of inpatient medication list Pain: still with epigastric pain, woke patient up last night PO Intake: poor, tolerating clears, toast Voiding: no voiding problems patient still c/o epigastric pain, nausea and headache Imitrex helps but it wears off feels that Fioricet makes stomach worse check lipase and liver profile, normal results CBC and BMP normal patient getting up to chair, trying to walk around but very fatigued Problem List Medical Problems: (1) Anemia Status: Acute (2) Dehydration Status: Acute (3) Gastritis Status: Acute (4) Intractable abdominal pain Status: Acute (5) Intractable vomiting Status: Acute (6) Iron deficiency anemia Status: Acute (7) Pelvic pain Status: Acute (8) Vomiting Status: Acute Review of Systems Constitutional: + weakness, + fatigue, + problem reported (migraine headache) Abdomen: + pain, + nausea All Other Systems: Reviewed and Negative Medications Current Inpatient Medications Medications (Trade) Dose Ordered Sig/Demetria Route Start Time Stop Time Status Last Admin Dose Admin Acetaminophen (Tylenol Tab) 650 mg Q4H PRN PO 11/03/17 03:30 12/03/17 03:29 11/05/17 00:38 650 MG Ondansetron HCl (Zofran Inj) 4 mg Q6H PRN IV 11/03/17 03:30 12/03/17 03:29 11/08/17 12:05 4 MG Miscellaneous Information (Check Scopolamine Patch Placement) 1 ea QS N/A 11/04/17 00:00 12/04/17 00:00 11/06/17 16:01 1 EA Nitrofurantoin Macrocrystals (Macrobid Cap) 100 mg BID PO 11/04/17 21:00 11/09/17 09:01 11/08/17 21:11 100 MG Hydroxyzine HCl (Vistaril Tab) 25 mg HS PO 11/05/17 21:00 12/03/17 08:59 11/08/17 21:11 25 MG Pantoprazole Sodium (Protonix Tab) 40 mg BID PO 11/05/17 21:00 11/09/17 20:59 11/08/17 21:11 40 MG Metoclopramide HCl (Reglan Inj) 5 mg TIDM IV. 11/06/17 08:00 12/06/17 07:59 11/08/17 16:54 5 MG Bismuth Subsalicylate (Pepto-Bismol Chew Tab) 1 tab QID PO 11/06/17 21:00 11/20/17 17:01 11/08/17 21:11 1 TAB Doxycycline Hyclate (Vibramycin Cap) 100 mg BID PO 11/06/17 21:00 11/20/17 09:01 11/08/17 21:11 100 MG Metronidazole (Flagyl Tab) 500 mg TID PO 11/06/17 21:00 Future Hold 11/07/17 13:30 500 MG Metronidazole 500 mg/Prmx 100 ml @ 100 mls/hr Q8H IV 11/07/17 22:00 11/21/17 21:59 11/08/17 21:11 100 MLS/HR Morphine Sulfate (MoRPHine SULFATE INJ) 2 mg Q4 PRN IV 11/08/17 11:15 11/22/17 11:14 Objective Vital Signs Date Time Temp Pulse Resp B/P (MAP) Pulse Ox O2 Delivery O2 Flow Rate FiO2 11/08/17 16:11 36.2 70 18 100/65 (77) 98 Room Air 11/08/17 16:00 98 Room Air 11/08/17 08:00 Room Air 11/08/17 07:21 36.8 61 16 111/65 (80) 98 Room Air 11/08/17 00:38 36.7 68 16 109/71 (84) 97 Room Air 11/07/17 23:53 Room Air Physical Exam General Appearance: no apparent distress, + thin Eyes: normal inspection, EOMI, sclerae normal ENT: normal ENT inspection, hearing grossly normal, pharynx normal Neck: supple, no adenopathy, no JVD, trachea midline Respiratory/Chest: chest non-tender, lungs clear, normal breath sounds, no respiratory distress, no accessory muscle use Cardiovascular: regular rate, rhythm, no edema, no gallop, no JVD, no murmur Abdomen: normal bowel sounds, soft, no organomegaly, + tenderness (epigastric) Extremities: normal range of motion, non-tender, normal inspection, no pedal edema, no calf tenderness, pelvis stable Neurologic/Psychiatric: 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, no motor/sensory deficits, alert, normal mood/affect, oriented x 3 Skin: normal color, warm/dry, no rash Laboratory Results Last 24 Hours Test 11/08/17 06:12 11/08/17 11:25 White Blood Count 5.58 K/uL Red Blood Count 4.94 M/uL Hemoglobin 9.4 g/dL Hematocrit 32.1 % Mean Corpuscular Volume 65.0 fL Mean Corpuscular Hemoglobin 19.0 pg Mean Corpuscular Hemoglobin Concent 29.3 g/dl Platelet Count 451 K/uL Mean Platelet Volume 8.9 fL Neutrophils (%) (Auto) 40.2 % Lymphocytes (%) (Auto) 41.9 % Monocytes (%) (Auto) 9.5 % Eosinophils (%) (Auto) 7.7 % Basophils (%) (Auto) 0.5 % Neutrophils # (Auto) 2.24 K/uL Lymphocytes # (Auto) 2.34 K/uL Monocytes # (Auto) 0.53 K/uL Eosinophils # (Auto) 0.43 K/uL Basophils # (Auto) 0.03 K/uL RDW Standard Deviation 55.3 fL RDW Coefficient of Variation 24.2 % Immature Granulocyte % (Auto) 0.2 % Immature Granulocyte # (Auto) 0.01 K/uL Polychromasia 1+ Hypochromasia PRESENT Microcytosis PRESENT Ovalocytes 1+ Sodium Level 140 mmol/L Potassium Level 3.9 mmol/L Chloride Level 107 mmol/L Carbon Dioxide Level 26 mmol/L Anion Gap 7.0 mmol/L Blood Urea Nitrogen 8 mg/dl Creatinine 0.73 mg/dl Est Creatinine Clear Calc Drug Dose 93.1 ml/min Estimated GFR () 120.2 Estimated GFR (Non- 103.7 BUN/Creatinine Ratio 10.9 Random Glucose 81 mg/dl Calcium Level 8.6 mg/dl Magnesium Level 1.8 mg/dl Total Bilirubin 0.3 mg/dl Direct Bilirubin < 0.1 mg/dl Aspartate Amino Transf (AST/SGOT) 24 U/L Alanine Aminotransferase (ALT/SGPT) 21 U/L Alkaline Phosphatase 138 U/L Total Protein 6.8 gm/dl Albumin 2.9 gm/dl Amylase Level 35 U/L Lipase 63 U/L Assessment and Plan 41 y/o F Hx migraines, chronic pain, iron-deficient anemia admitted November 03, 2017 because of severe anemia possible GI bleeding severe anemia acute blood loss from GI bleeding with hemoglobin at 6 on admission transfused two units, Hb stable for several days, 9.4 today EGD was done on November 03, 2017, report that was visible vessel s/p cautery/ injxn post procedure day 4 today without evidence of recurrent bleed H pylori infection: GI recommends Bismuth and PPI BID x 14 days due to allergies, will treat with Flagyl 500mg TID and Doxycycline 100mg BID patient having difficult time tolerating these, nausea and dry heaves changed Flagyl to IV for time being since it caused her to vomit Possible UTI upon admission, there was no urine culture sent, treated with cipro for total 5 days, now on Flagyl and Doxy with H pylori infection afebrile, WBC normal no further treatment for UTI Nausea/vomiting, epigastric pain Reglan TID for short term to improve symptoms still no improvement lipase and liver profile normal Migraine headache: occurring every day, relieved temporarily with Imitrex Fioricet aggravates stomach pain Chronic back pain Hypokalemia - replaced History of hysterectomy SCD for DVT prophylaxis, GI prophylaxis is covered, patient is full code Continued [facility] stay due to: multiple IV medications needed Discharge planning: uncertain
[2017-11-09] MEDS: ONDANSETRON INJ 2 MG/ML 2 ML VIAL IV PRN (01:51)
[2017-11-09] MEDS: ACETAMINOPHEN 325 MG TAB PO PRN ×2 (01:52→19:57)
[2017-11-09] MEDS: METRONIDAZOLE / NSS 500 MG in PREMIXED NSS 100 ML IV SCH ×3 (05:47→20:33)
[2017-11-09 07:33] VITALS: BP 112/75; PULSE 62; TEMP 36.4; O2SAT 97
[2017-11-09] MEDS: METOCLOPRAMIDE HCL INJ 5 MG/ML 2 ML VIAL IV. SCH ×3 (07:43→17:03)
[2017-11-09] MEDS: BISMUTH SUBSALICYLATE 262 MG CHEW PO SCH ×4 (07:44→20:34)
[2017-11-09] MEDS: PANTOprazole SOD 40 MG TAB PO SCH (07:45)
[2017-11-09] MEDS: DOXYCYCLINE HYCLATE 100 MG CAP PO SCH ×2 (08:39→21:07)
[2017-11-09] MEDS: NITROFURANTOIN MONOHYDRATE 100 MG CAP PO SCH (08:39)
[2017-11-09 15:55] VITALS: BP 102/67; PULSE 71; TEMP 36.7; O2SAT 98
[2017-11-09 16:00] VITALS: O2SAT 98
--- NOTE | 2017-11-09 16:44 | Progress Note ---
Subjective Date of Service: November 09, 2017. Subjective Pt evaluation today including: conversation w/ patient, physical exam, review of inpatient medication list Pain: less epigastric pain today PO Intake: improving slowly Voiding: no voiding problems patient slightly better today, less pain, more appetite, improved intake no labs today no vomiting today more energy had two formed BM today, no blood she is more optimistic about improving today Problem List Medical Problems: (1) Anemia Status: Acute (2) Dehydration Status: Acute (3) Gastritis Status: Acute (4) Intractable abdominal pain Status: Acute (5) Intractable vomiting Status: Acute (6) Iron deficiency anemia Status: Acute (7) Pelvic pain Status: Acute (8) Vomiting Status: Acute Review of Systems Constitutional: + weakness, + fatigue Abdomen: + pain, + nausea Neurologic: + problem reported (headache, but less intense) All Other Systems: Reviewed and Negative Medications Current Inpatient Medications Medications (Trade) Dose Ordered Sig/Demetria Route Start Time Stop Time Status Last Admin Dose Admin Acetaminophen (Tylenol Tab) 650 mg Q4H PRN PO 11/03/17 03:30 12/03/17 03:29 11/09/17 01:52 650 MG Ondansetron HCl (Zofran Inj) 4 mg Q6H PRN IV 11/03/17 03:30 12/03/17 03:29 11/09/17 01:51 4 MG Hydroxyzine HCl (Vistaril Tab) 25 mg HS PO 11/05/17 21:00 12/03/17 08:59 11/08/17 21:11 25 MG Pantoprazole Sodium (Protonix Tab) 40 mg BID PO 11/05/17 21:00 11/09/17 20:59 11/09/17 07:45 40 MG Metoclopramide HCl (Reglan Inj) 5 mg TIDM IV. 11/06/17 08:00 12/06/17 07:59 11/09/17 12:22 5 MG Bismuth Subsalicylate (Pepto-Bismol Chew Tab) 1 tab QID PO 11/06/17 21:00 11/20/17 17:01 11/09/17 12:22 1 TAB Doxycycline Hyclate (Vibramycin Cap) 100 mg BID PO 11/06/17 21:00 11/20/17 09:01 11/09/17 08:39 100 MG Metronidazole (Flagyl Tab) 500 mg TID PO 11/06/17 21:00 Future Hold 11/07/17 13:30 500 MG Metronidazole 500 mg/Prmx 100 ml @ 100 mls/hr Q8H IV 11/07/17 22:00 11/21/17 21:59 11/09/17 13:47 100 MLS/HR Morphine Sulfate (MoRPHine SULFATE INJ) 2 mg Q4 PRN IV 11/08/17 11:15 11/22/17 11:14 Objective Vital Signs Date Time Temp Pulse Resp B/P (MAP) Pulse Ox O2 Delivery O2 Flow Rate FiO2 11/09/17 15:55 36.7 71 13 102/67 (79) 98 Room Air 11/09/17 07:35 Room Air 11/09/17 07:33 36.4 62 16 112/75 (87) 97 Room Air 11/09/17 00:00 Room Air Physical Exam General Appearance: no apparent distress, + thin Eyes: normal inspection, EOMI, sclerae normal ENT: normal ENT inspection, hearing grossly normal, pharynx normal Neck: supple, no adenopathy, no JVD, trachea midline Respiratory/Chest: chest non-tender, lungs clear, normal breath sounds, no respiratory distress, no accessory muscle use Cardiovascular: regular rate, rhythm, no edema, no gallop, no JVD, no murmur Abdomen: normal bowel sounds, soft, no organomegaly, + tenderness (mild epigastric tenderness) Extremities: normal range of motion, non-tender, normal inspection, no pedal edema, no calf tenderness, pelvis stable Neurologic/Psychiatric: 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 as tested, no motor/sensory deficits, alert, normal mood/affect, oriented x 3 Skin: normal color, warm/dry, no rash Lymphatic: no adenopathy Assessment and Plan 41 y/o F Hx migraines, chronic pain, iron-deficient anemia admitted November 03, 2017 because of severe anemia possible GI bleeding severe anemia acute blood loss from GI bleeding with hemoglobin at 6 on admission transfused two units, Hb stable for several days, 9.4 yesterday, no need to follow daily EGD was done on November 03, 2017, report that was visible vessel s/p cautery/ injxn post procedure day 5 today without evidence of recurrent bleed H pylori infection: GI recommends Bismuth and PPI BID x 14 days due to allergies, will treat with Flagyl 500mg TID and Doxycycline 100mg BID patient having difficult time tolerating these, nausea and dry heaves changed Flagyl to IV for time being since it caused her to vomit tolerating the rest of her treatment, will need to resume Flagyl PO prior to discharge Possible UTI upon admission, there was no urine culture sent, treated with cipro for total 5 days, now on Flagyl and Doxy with H pylori infection afebrile, WBC normal no further treatment for UTI Nausea/vomiting, epigastric pain Reglan TID for short term to improve symptoms, will hold after tonight's dose slight improvement today lipase and liver profile normal Migraine headache: occurring every day, relieved temporarily with Imitrex less intense today, relieved with only Tylenol, will hold on further Imitrex Chronic back pain Hypokalemia - replaced History of hysterectomy SCD for DVT prophylaxis, GI prophylaxis is covered, patient is full code Continued [facility] stay due to: multiple IV medications needed Discharge planning: uncertain
[2017-11-09] MEDS: hydrOXYzine HCL 25 MG TAB PO SCH (20:34)
[2017-11-09] MEDS: MoRPHine SULFATE 4 MG/ML 1 ML CARP\\VIAL IV PRN (21:37)
[2017-11-09 23:05] VITALS: BP 115/70; PULSE 65; TEMP 36.6; O2SAT 99
[2017-11-10] MEDS: METRONIDAZOLE / NSS 500 MG in PREMIXED NSS 100 ML IV SCH ×3 (05:20→23:57)
[2017-11-10 07:06] VITALS: BP 99/68; PULSE 79; TEMP 36.3; O2SAT 99
[2017-11-10] MEDS: MoRPHine SULFATE 4 MG/ML 1 ML CARP\\VIAL IV PRN ×2 (08:37→17:12)
[2017-11-10] MEDS: ONDANSETRON INJ 2 MG/ML 2 ML VIAL IV PRN ×3 (08:37→23:57)
[2017-11-10] MEDS: BISMUTH SUBSALICYLATE 262 MG CHEW PO SCH ×4 (08:38→21:09)
[2017-11-10] MEDS: DOXYCYCLINE HYCLATE 100 MG CAP PO SCH ×2 (08:39→22:32)
[2017-11-10] MEDS ORDERED: SINCALIDE INJ 1.2 MCG in SODIUM CHLORIDE 0.9% 100ML 100 ML IV ONE (13:00)
[2017-11-10 17:02] VITALS: BP 111/73; PULSE 56; TEMP 36.7; O2SAT 99
--- NOTE | 2017-11-10 17:02 | DIAGNOSTIC IMAGING REPORT ---
HEPATOBILIARY EF IMAGING CLINICAL HISTORY: 41 years-old Female presenting with Nausea and vomiting, intractable. TECHNIQUE: Dynamic imaging of the gallbladder was initiated 65 minutes after administration of 5.5 mCi of technetium 99m Choletec. Imaging was obtained every 5 minutes over a span of 40 minutes. 1.2 mcg of sincalide was injected 5 minutes prior to the start of imaging. The gallbladder ejection fraction was calculated. COMPARISON: CT of abdomen pelvis from 11/03/2017. FINDINGS: Hepatobiliary scan demonstrates normal radiotracer uptake by the liver and normal excretion into the common duct and gallbladder. Expected radiotracer activity within small bowel indicates an unobstructed common duct. The gallbladder subsequently demonstrates normal contraction with decreased radiotracer activity. Gallbladder ejection fraction measures 77%. Reference range: Unequivocally normal: Greater than 50% Unequivocally abnormal: Less than 35% IMPRESSION: 1. Normal gallbladder ejection fraction. No evidence of chronic cholecystitis. Electronically signed by: Joseph Lewis M.D. 11/10/2017 5:00 PM Dictated Date/Time: 11/10/2017 5:00 PM
[2017-11-10] MEDS: hydrOXYzine HCL 25 MG TAB PO SCH (21:10)
[2017-11-10 22:59] VITALS: BP 111/75; PULSE 63; TEMP 36.5; O2SAT 100
--- NOTE | 2017-11-10 23:16 | Progress Note ---
Subjective Date of Service: November 10, 2017. Subjective Pt evaluation today including: conversation w/ patient, physical exam, lab review, review of studies, review of inpatient medication list Pain: epigastric pain PO Intake: poor, nauseated Voiding: no voiding problems patient feels worse than yesterday, eating and drinking less, still with epigastric pain nauseated when trying to eat or drink discussed getting HIDA with EF since she is not improving, she agreed HIDA normal, no dyskinesis, no chronic cholecystitis Problem List Medical Problems: (1) Anemia Status: Acute (2) Dehydration Status: Acute (3) Gastritis Status: Acute (4) Intractable abdominal pain Status: Acute (5) Intractable vomiting Status: Acute (6) Iron deficiency anemia Status: Acute (7) Pelvic pain Status: Acute (8) Vomiting Status: Acute Review of Systems Constitutional: + weakness, + fatigue Abdomen: + pain, + nausea, + vomiting All Other Systems: Reviewed and Negative Medications Current Inpatient Medications Medications (Trade) Dose Ordered Sig/Demetria Route Start Time Stop Time Status Last Admin Dose Admin Acetaminophen (Tylenol Tab) 650 mg Q4H PRN PO 11/03/17 03:30 12/03/17 03:29 11/09/17 19:57 650 MG Ondansetron HCl (Zofran Inj) 4 mg Q6H PRN IV 11/03/17 03:30 12/03/17 03:29 11/10/17 17:12 4 MG Hydroxyzine HCl (Vistaril Tab) 25 mg HS PO 11/05/17 21:00 12/03/17 08:59 11/10/17 21:10 25 MG Metoclopramide HCl (Reglan Inj) 5 mg TIDM IV. 11/06/17 08:00 12/06/17 07:59 Future Hold 11/09/17 17:03 5 MG Bismuth Subsalicylate (Pepto-Bismol Chew Tab) 1 tab QID PO 11/06/17 21:00 11/20/17 17:01 11/10/17 21:09 1 TAB Doxycycline Hyclate (Vibramycin Cap) 100 mg BID PO 11/06/17 21:00 11/20/17 09:01 11/10/17 22:32 100 MG Metronidazole (Flagyl Tab) 500 mg TID PO 11/06/17 21:00 Future Hold 11/07/17 13:30 500 MG Metronidazole 500 mg/Prmx 100 ml @ 100 mls/hr Q8H IV 11/07/17 22:00 11/21/17 21:59 11/10/17 17:13 100 MLS/HR Morphine Sulfate (MoRPHine SULFATE INJ) 2 mg Q4 PRN IV 11/08/17 11:15 11/22/17 11:14 11/10/17 17:12 2 MG Objective Vital Signs Date Time Temp Pulse Resp B/P (MAP) Pulse Ox O2 Delivery O2 Flow Rate FiO2 11/10/17 22:59 36.5 63 18 111/75 (87) 100 Room Air 11/10/17 17:02 36.7 56 18 111/73 (86) 99 Room Air 11/10/17 15:40 Room Air 11/10/17 08:00 Room Air 11/10/17 07:06 36.3 79 18 99/68 (78) 99 Room Air 11/10/17 00:00 Room Air Physical Exam General Appearance: no apparent distress, + thin Eyes: normal inspection, EOMI, sclerae normal ENT: normal ENT inspection, hearing grossly normal, pharynx normal Neck: supple, no adenopathy, no JVD, trachea midline Respiratory/Chest: chest non-tender, lungs clear, normal breath sounds, no respiratory distress, no accessory muscle use Cardiovascular: regular rate, rhythm, no edema, no gallop, no JVD, no murmur Abdomen: normal bowel sounds, soft, no organomegaly, + tenderness Extremities: normal range of motion, non-tender, normal inspection, no pedal edema, no calf tenderness Neurologic/Psychiatric: 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, no motor/sensory deficits, alert, oriented x 3, + depressed affect Skin: normal color, warm/dry, no rash Assessment and Plan 41 y/o F Hx migraines, chronic pain, iron-deficient anemia admitted November 03, 2017 because of severe anemia possible GI bleeding severe anemia acute blood loss from GI bleeding with hemoglobin at 6 on admission transfused two units, Hb stable for several days, 9.4 two days ago, no need to follow daily since there are no further signs of bleeding EGD was done on November 03, 2017, report that was visible vessel s/p cautery/ injxn H pylori infection, gastritis: GI recommends Bismuth and PPI BID x 14 days due to allergies, will treat with Flagyl 500mg TID and Doxycycline 100mg BID patient having difficult time tolerating these, nausea and dry heaves changed Flagyl to IV and change Doxycycline to IV ideally would need to be tolerating diet and PO medications prior to discharge Nausea with vomiting, epigastric pain: triggered by eating, medications treated with Reglan for several days, minimal improvement so stopped checked HIDA with EF today, negative for dyskinesis and chronic cholecystitis lipase has been normal, LFT normal, WBC normal seems to be due to gastritis, ulcer, would think that symptoms would have improved by now Possible UTI upon admission, there was no urine culture sent, treated with cipro for total 5 days, now on Flagyl and Doxy with H pylori infection afebrile, WBC normal no further treatment for UTI Migraine headache less intense today, relieved with only Tylenol, will hold on further Imitrex Chronic back pain Hypokalemia - replaced History of hysterectomy SCD for DVT prophylaxis, GI prophylaxis is covered, patient is full code unsure of time of discharge, not tolerating food or PO antibiotics which she requires would be difficult to set up with IV antibiotics given that Flagyl is TID and Doxycycline BID hopefully PO intake will improve over weekend and can be discharged early next week Continued [facility] stay due to: multiple IV medications needed Discharge planning: uncertain
[2017-11-11] MEDS: ACETAMINOPHEN 325 MG TAB PO PRN (03:30)
[2017-11-11] MEDS: METRONIDAZOLE / NSS 500 MG in PREMIXED NSS 100 ML IV SCH ×3 (05:46→23:04)
[2017-11-11] MEDS: ONDANSETRON INJ 2 MG/ML 2 ML VIAL IV PRN ×2 (05:46→09:38)
[2017-11-11 07:32] VITALS: BP 102/62; PULSE 61; TEMP 36.8; O2SAT 97
[2017-11-11] MEDS ORDERED: DOXYCYCLINE IV 100 MG in DEXTROSE 5% 100ML 100 ML IV SCH (09:00)
[2017-11-11] MEDS: BISMUTH SUBSALICYLATE 262 MG CHEW PO SCH ×4 (09:38→20:56)
[2017-11-11] MEDS: MoRPHine SULFATE 4 MG/ML 1 ML CARP\\VIAL IV PRN (09:39)
--- NOTE | 2017-11-11 11:34 | Hospitalist Progress Note ---
Hospitalist Progress Note Date of Service November 11, 2017. (Katherine Clifton .MAURICIO) Subjective Pt evaluation today including: conversation w/ patient, physical exam, chart review, lab review, review of inpatient medication list Voiding: no voiding problems Ms. Sepulveda is feeling more poorly today than she has for the past few days. She is having nausea and dry heaves and diarrhea which she had not been having the past few days. She is having some mild chest pain which she has had intermittently. She had an EKG and troponin drawn on 11/07 for similar complaints which was normal. She is not currently experiencing the chest pain now. She has abdominal tenderness but no pain. She also complains of sweats over the past few days. ROS Constitutional: no chills, aches, sweats or fever Respiratory: no sob,cough, sputum, or wheezing Cardiac: no chest pain, palpitations, edema, orthopnea or lightheadedness GI: see HPI : no dysuria or hesitancy Extremities: no joint pain or weakness Skin: no rash All other systems reviewed and negative (Katherine Clifton CRNP) Medications Medications Administered Medications (Trade) Dose Ordered Sig/Demetria Route Start Time Stop Time Status Last Admin Dose Admin Ondansetron HCl (Zofran Inj) 4 mg NOW STAT IV 11/03/17 00:42 11/03/17 00:44 DC 11/03/17 01:02 4 MG Fentanyl Citrate (Fentanyl Inj) 75 mcg NOW STAT IV 11/03/17 00:42 11/03/17 00:44 DC 11/03/17 01:02 75 MCG Sodium Chloride 1,000 ml @ 999 mls/hr Q1H1M STAT IV 11/03/17 00:42 11/03/17 01:42 DC 11/03/17 01:02 999 MLS/HR Ondansetron HCl (Zofran Inj) 4 mg NOW STAT IV 11/03/17 00:42 11/03/17 00:44 DC 11/03/17 01:02 4 MG Fentanyl Citrate (Fentanyl Inj) 50 mcg NOW STAT IV 11/03/17 01:55 11/03/17 01:56 DC 11/03/17 02:06 50 MCG Lorazepam (Ativan Inj) 1 mg NOW STAT IV 11/03/17 01:55 11/03/17 01:56 DC 11/03/17 02:06 1 MG Pantoprazole Sodium 40 mg/ Syringe 10 ml @ 5 mls/min NOW ONCE IV 11/03/17 03:00 11/03/17 03:01 DC 11/03/17 03:51 5 MLS/MIN Hydroxyzine HCl (Vistaril Tab) 25 mg DAILY PO 11/03/17 09:00 11/05/17 00:29 DC 11/04/17 07:48 25 MG Potassium Chloride/Dextrose/ Sod Cl 1,000 ml @ 100 mls/hr Q10H IV 11/03/17 05:00 11/03/17 14:59 DC 11/03/17 06:39 100 MLS/HR Acetaminophen (Tylenol Tab) 650 mg Q4H PRN PO 11/03/17 03:30 12/03/17 03:29 11/11/17 03:30 650 MG Ondansetron HCl (Zofran Inj) 4 mg Q6H PRN IV 11/03/17 03:30 12/03/17 03:29 11/11/17 09:38 4 MG Potassium Chloride 100 ml @ 100 mls/hr Q1H IV 11/03/17 05:00 11/03/17 06:59 DC 11/03/17 08:02 100 MLS/HR Magnesium Sulfate 100 ml @ 100 mls/hr NOW STAT IV 11/03/17 04:50 11/03/17 05:49 DC 11/03/17 04:57 100 MLS/HR Hydromorphone HCl (Dilaudid Inj) 0.5 mg Q4H PRN IV 11/03/17 04:00 11/05/17 14:36 DC 11/05/17 11:38 0.5 MG Pantoprazole Sodium 40 mg/ Syringe 10 ml @ 5 mls/min DAILY@09,21 IV 11/03/17 21:00 11/05/17 09:04 DC 11/05/17 07:59 5 MLS/MIN Ondansetron HCl (Zofran Inj) 4 mg ONE PRN IV 11/03/17 16:00 11/03/17 21:00 [place] 11/03/17 17:07 4 MG Sucralfate (Carafate Susp) 1 gm ACHS PO 11/03/17 21:00 11/05/17 18:17 DC 11/05/17 16:44 1 GM Dexamethasone Sodium Phosphate (Decadron Inj) 8 mg STK-MED ONCE .ROUTE 11/03/17 17:34 11/03/17 17:35 DC 11/03/17 17:37 8 MG Scopolamine (Transderm-Scop Patch) 1.5 mg STK-MED ONCE TD 11/03/17 17:34 11/03/17 17:35 DC 11/03/17 17:37 1.5 MG Miscellaneous (Remove Transderm-Scop Patch) 1 ea Q72H N/A 11/06/17 17:45 11/06/17 17:46 DC 11/06/17 17:45 1 EA Miscellaneous Information (Check Scopolamine Patch Placement) 1 ea QS N/A 11/04/17 00:00 11/08/17 23:42 DC 11/06/17 16:01 1 EA Ciprofloxacin (Cipro Tab) 500 mg BID PO 11/04/17 09:00 11/05/17 14:36 DC 11/05/17 07:59 500 MG Nitrofurantoin Macrocrystals (Macrobid Cap) 100 mg BID PO 11/04/17 21:00 11/09/17 09:01 DC 11/09/17 08:39 100 MG Hydroxyzine HCl (Vistaril Tab) 25 mg HS PO 11/05/17 21:00 12/03/17 08:59 11/10/17 21:10 25 MG Hydroxyzine HCl (Vistaril Tab) 25 mg 0028 ONCE PO 11/05/17 00:28 11/05/17 00:31 DC 11/05/17 00:37 25 MG Pantoprazole Sodium (Protonix Tab) 40 mg BID PO 11/05/17 21:00 11/09/17 20:59 DC 11/09/17 07:45 40 MG Ciprofloxacin (Cipro Tab) 500 mg BID PO 11/05/17 21:00 11/07/17 14:14 DC 11/07/17 08:34 500 MG Acetaminophen/ Butalbital/ Caffeine (Fioricet Tab) 1-2 TABLETS ... Q4H PRN PO 11/05/17 16:15 11/08/17 11:14 DC 11/08/17 00:27 2 TAB Metoclopramide HCl (Reglan Inj) 5 mg TIDM IV. 11/06/17 08:00 12/06/17 07:59 Future Hold 11/09/17 17:03 5 MG Sumatriptan Succinate (Imitrex Sq Inj) 6 mg NOW ONCE SQ 11/06/17 10:45 11/06/17 10:46 DC 11/06/17 11:46 6 MG Potassium Chloride/Sodium Chloride 1,000 ml @ 100 mls/hr Q10H IV 11/06/17 16:30 11/08/17 11:14 DC 11/08/17 07:16 100 MLS/HR Bismuth Subsalicylate (Pepto-Bismol Chew Tab) 1 tab QID PO 11/06/17 21:00 11/20/17 17:01 11/11/17 09:38 1 TAB Doxycycline Hyclate (Vibramycin Cap) 100 mg BID PO 11/06/17 21:00 Future Hold 11/10/17 22:32 100 MG Metronidazole (Flagyl Tab) 500 mg TID PO 11/06/17 21:00 Future Hold 11/07/17 13:30 500 MG Metoclopramide HCl (Reglan Inj) 5 mg NOW STAT IV. 11/06/17 20:44 11/06/17 20:53 DC 11/06/17 21:06 5 MG Sumatriptan Succinate (Imitrex Sq Inj) 6 mg NOW ONCE SQ 11/07/17 09:45 11/07/17 12:24 DC 11/07/17 13:30 6 MG Metronidazole 500 mg/Prmx 100 ml @ 100 mls/hr Q8H IV 11/07/17 22:00 11/21/17 21:59 11/11/17 05:46 100 MLS/HR Sumatriptan Succinate (Imitrex Sq Inj) 6 mg NOW ONCE SQ 11/08/17 12:30 11/08/17 12:31 DC 11/08/17 13:05 6 MG Morphine Sulfate (MoRPHine SULFATE INJ) 2 mg Q4 PRN IV 11/08/17 11:15 11/22/17 11:14 11/11/17 09:39 2 MG Doxycycline Hyclate 100 mg/ Dextrose 110 ml @ 50 mls/hr Q12 IV 11/11/17 09:00 5/15/18 08:59 11/11/17 10:29 50 MLS/HR (Katherine Clifton CRNP) Objective Vital Signs Date Time Temp Pulse Resp B/P (MAP) Pulse Ox O2 Delivery O2 Flow Rate FiO2 11/11/17 08:00 Room Air 11/11/17 07:32 36.8 61 16 102/62 (75) 97 Room Air 11/11/17 00:00 Room Air 11/10/17 22:59 36.5 63 18 111/75 (87) 100 Room Air 11/10/17 20:00 Room Air 11/10/17 17:02 36.7 56 18 111/73 (86) 99 Room Air 11/10/17 15:40 Room Air (Katherine Clifton CRNP) Physical Exam Notes: General: no distress Eyes: normal inspection, PERLL Respiratory: chest non tender, clear to auscultation, normal breath sounds, no respiratory distress, no accessory muscle use Cardiac: regular rate and rhythm, no rub or gallop, no murmur, no edema, no jvd GI/: active bowel sounds, diffuse abdominal tenderness 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, soft, non distended Extremities: normal range of motion, normal strength, non tender Neuro/Psych: alert and oriented x 3, normal mood and affect Skin: normal color, dry (Katherine Clifton CRNP) Assessment and Plan 41 y/o F Hx migraines, chronic pain, iron-deficient anemia admitted November 03, 2017 because of severe anemia possible GI bleeding severe anemia acute blood loss from GI bleeding with hemoglobin at 6 on admission transfused two units, Hb stable for several days, 9.4 two days ago EGD was done on November 03, 2017, report that was visible vessel s/p cautery/ injxn H pylori infection, gastritis: GI recommends Bismuth and PPI BID x 14 days due to allergies, will treat with Flagyl to IV and Doxycycline to IV - patient unable to tolerate po medications so changed to IV ideally would need to be tolerating diet and PO medications prior to discharge Will repeat cbc, prp, lfts and lipase as patient is feeling worse today Nausea with vomiting, epigastric pain: triggered by eating, medications treated with Reglan for several days, minimal improvement so stopped checked HIDA with EF, negative for dyskinesis and chronic cholecystitis lipase has been normal, LFT normal, WBC normal - will recheck as above seems to be due to gastritis, ulcer - unclear why she is not having more improvement Possible UTI upon admission, there was no urine culture sent, treated with cipro for total 5 days, now on Flagyl and Doxy with H pylori infection afebrile, WBC normal no further treatment for UTI Migraine headache no symptoms today Hypokalemia - replaced SCD for DVT prophylaxis, GI prophylaxis is covered, patient is full code Patient continues to be unable to consistently take po - will need to be able to take abx/fluids before discharging (Katherine Clifton ., MAURICIO) COVER CUTTER Physician Supervision Note: I interviewed and examined the patient. Discussed with Katherine Clifton COVER CUTTER and agree with findings and plan as documented in the note. Any exceptions or clarifications are listed here: None Patient continues to have increased nausea and any abnormal abdominal examinations. The patient will attempt to use some IV diphenhydramine to try to help reviewing of her labs do not show any significant concern for a physiological source of her nausea We will continue supportive care treating her H. pylori. One things because of her med allergies she has been on doxycycline which could be the etiology of her nausea will hold her doxycycline continue her Flagyl and her other treatments for peptic ulcer disease and see if her nausea improves if it does not will make it difficult choice to treat her H. pylori due to her multiple drug allergies and intolerances Documented By: Alon Bettencourt (Alon Bettencourt M.D.)
[2017-11-11 12:12] LABS: HEMATOCRIT 36.1 % (37-47); HEMOGLOBIN 10.6 g/dL (12.0-16.0); MEAN CELL VOLUME 64.5 fL (80-100); MEAN CORPUSCULAR HEMOGLOBIN 18.9 pg (25-34); MEAN CORPUSCULAR HGB CONC 29.4 g/dl (32-36); MEAN PLATELET VOLUME 9.3 fL (7.4-10.4); PLATELET COUNT 425 K/uL (130-400); RED CELL DISTRIBUTION WIDTH CV 24.6 % (11.5-14.5); RED CELL DISTRIBUTION WIDTH SD 55.1 fL (36.4-46.3)
[2017-11-11 12:36] LABS: BLOOD UREA NITROGEN 13 mg/dl (7-18); CARBON DIOXIDE 29 mmol/L (21-32); CREATININE 0.79 mg/dl (0.60-1.20); GLUCOSE 95 mg/dl (70-99); POTASSIUM 3.7 mmol/L (3.5-5.1); SODIUM 135 mmol/L (136-145)
[2017-11-11 12:37] LABS: ALBUMIN 3.2 gm/dl (3.4-5.0); ALT/SGPT 34 U/L (12-78); AST/SGOT 37 U/L (15-37); CALCIUM 9.3 mg/dl (8.5-10.1); LIPASE 67 U/L (73-393)
[2017-11-11 12:39] LABS: ALKALINE PHOSPHATASE 159 U/L (45-117); TOTAL PROTEIN 7.6 gm/dl (6.4-8.2)
[2017-11-11] MEDS ORDERED: ONDANSETRON INJ 2 MG/ML 2 ML VIAL IV PRN (14:15)
[2017-11-11] MEDS ORDERED: DiphenhydrAMINE INJ 25 MG in SYRINGE 0 ML IV PRN (14:15)
[2017-11-11 14:46] VITALS: BP 104/71; PULSE 67; TEMP 36.6; O2SAT 100
[2017-11-11] MEDS: ONDANSETRON INJ 8 MG in DEXTROSE 5% 50ML 50 ML IV PRN ×2 (18:12→23:52)
[2017-11-11] MEDS: DiphenhydrAMINE HCL 50 MG/ML VIAL IV PRN (18:13)
[2017-11-11] MEDS: hydrOXYzine HCL 25 MG TAB PO SCH (20:56)
[2017-11-11 23:00] VITALS: BP 90/58; PULSE 78; TEMP 36.9; O2SAT 95
[2017-11-12] MEDS: ACETAMINOPHEN 325 MG TAB PO PRN (06:02)
[2017-11-12] MEDS: ONDANSETRON INJ 8 MG in DEXTROSE 5% 50ML 50 ML IV PRN ×2 (06:02→23:12)
[2017-11-12] MEDS: METRONIDAZOLE / NSS 500 MG in PREMIXED NSS 100 ML IV SCH ×3 (06:05→22:08)
[2017-11-12 07:19] VITALS: BP 90/55; PULSE 61; TEMP 36.6; O2SAT 99
[2017-11-12] MEDS: DiphenhydrAMINE HCL 50 MG/ML VIAL IV PRN ×3 (09:06→23:26)
[2017-11-12] MEDS: BISMUTH SUBSALICYLATE 262 MG CHEW PO SCH ×4 (09:07→21:13)
--- NOTE | 2017-11-12 13:14 | Hospitalist Progress Note ---
Hospitalist Progress Note Date of Service November 12, 2017. (Katherine Clifton CRNP) Subjective Pt evaluation today including: conversation w/ patient, physical exam, chart review, lab review, review of inpatient medication list Voiding: no voiding problems Ms. Parker continues to complain of nausea however she is no longer having vomiting/dry heaves or diarrhea ROS Constitutional: no chills, aches, sweats or fever Respiratory: no sob,cough, sputum, or wheezing Cardiac: no chest pain, palpitations, edema, orthopnea or lightheadedness GI: no abdominal pain, vomiting, diarrhea or constipation : no dysuria or hesitancy Extremities: no joint pain or weakness Skin: no rash All other systems reviewed and negative (Katherine Clifton CRNP) Medications Medications Administered Medications (Trade) Dose Ordered Sig/Demetria Route Start Time Stop Time Status Last Admin Dose Admin Ondansetron HCl (Zofran Inj) 4 mg NOW STAT IV 11/03/17 00:42 11/03/17 00:44 DC 11/03/17 01:02 4 MG Fentanyl Citrate (Fentanyl Inj) 75 mcg NOW STAT IV 11/03/17 00:42 11/03/17 00:44 DC 11/03/17 01:02 75 MCG Sodium Chloride 1,000 ml @ 999 mls/hr Q1H1M STAT IV 11/03/17 00:42 11/03/17 01:42 DC 11/03/17 01:02 999 MLS/HR Ondansetron HCl (Zofran Inj) 4 mg NOW STAT IV 11/03/17 00:42 11/03/17 00:44 DC 11/03/17 01:02 4 MG Fentanyl Citrate (Fentanyl Inj) 50 mcg NOW STAT IV 11/03/17 01:55 11/03/17 01:56 DC 11/03/17 02:06 50 MCG Lorazepam (Ativan Inj) 1 mg NOW STAT IV 11/03/17 01:55 11/03/17 01:56 DC 11/03/17 02:06 1 MG Pantoprazole Sodium 40 mg/ Syringe 10 ml @ 5 mls/min NOW ONCE IV 11/03/17 03:00 11/03/17 03:01 DC 11/03/17 03:51 5 MLS/MIN Hydroxyzine HCl (Vistaril Tab) 25 mg DAILY PO 11/03/17 09:00 11/05/17 00:29 DC 11/04/17 07:48 25 MG Potassium Chloride/Dextrose/ Sod Cl 1,000 ml @ 100 mls/hr Q10H IV 11/03/17 05:00 11/03/17 14:59 DC 11/03/17 06:39 100 MLS/HR Acetaminophen (Tylenol Tab) 650 mg Q4H PRN PO 11/03/17 03:30 12/03/17 03:29 11/12/17 06:02 650 MG Ondansetron HCl (Zofran Inj) 4 mg Q6H PRN IV 11/03/17 03:30 11/11/17 14:09 DC 11/11/17 09:38 4 MG Potassium Chloride 100 ml @ 100 mls/hr Q1H IV 11/03/17 05:00 11/03/17 06:59 DC 11/03/17 08:02 100 MLS/HR Magnesium Sulfate 100 ml @ 100 mls/hr NOW STAT IV 11/03/17 04:50 11/03/17 05:49 DC 11/03/17 04:57 100 MLS/HR Hydromorphone HCl (Dilaudid Inj) 0.5 mg Q4H PRN IV 11/03/17 04:00 11/05/17 14:36 DC 11/05/17 11:38 0.5 MG Pantoprazole Sodium 40 mg/ Syringe 10 ml @ 5 mls/min DAILY@09,21 IV 11/03/17 21:00 11/05/17 09:04 DC 11/05/17 07:59 5 MLS/MIN Ondansetron HCl (Zofran Inj) 4 mg ONE PRN IV 11/03/17 16:00 11/03/17 21:00 DC 11/03/17 17:07 4 MG Sucralfate (Carafate Susp) 1 gm ACHS PO 11/03/17 21:00 11/05/17 18:17 DC 11/05/17 16:44 1 GM Dexamethasone Sodium Phosphate (Decadron Inj) 8 mg STK-MED ONCE .ROUTE 11/03/17 17:34 11/03/17 17:35 DC 11/03/17 17:37 8 MG Scopolamine (Transderm-Scop Patch) 1.5 mg STK-MED ONCE TD 11/03/17 17:34 11/03/17 17:35 DC 11/03/17 17:37 1.5 MG Miscellaneous (Remove Transderm-Scop Patch) 1 ea Q72H N/A 11/06/17 17:45 11/06/17 17:46 DC 11/06/17 17:45 1 EA Miscellaneous Information (Check Scopolamine Patch Placement) 1 ea QS N/A 11/04/17 00:00 11/08/17 23:42 DC 11/06/17 16:01 1 EA Ciprofloxacin (Cipro Tab) 500 mg BID PO 11/04/17 09:00 11/05/17 14:36 DC 11/05/17 07:59 500 MG Nitrofurantoin Macrocrystals (Macrobid Cap) 100 mg BID PO 11/04/17 21:00 11/09/17 09:01 DC 11/09/17 08:39 100 MG Hydroxyzine HCl (Vistaril Tab) 25 mg HS PO 11/05/17 21:00 12/03/17 08:59 11/11/17 20:56 25 MG Hydroxyzine HCl (Vistaril Tab) 25 mg 0028 ONCE PO 11/05/17 00:28 11/05/17 00:31 DC 11/05/17 00:37 25 MG Pantoprazole Sodium (Protonix Tab) 40 mg BID PO 11/05/17 21:00 11/09/17 20:59 DC 11/09/17 07:45 40 MG Ciprofloxacin (Cipro Tab) 500 mg BID PO 11/05/17 21:00 11/07/17 14:14 DC 11/07/17 08:34 500 MG Acetaminophen/ Butalbital/ Caffeine (Fioricet Tab) 1-2 TABLETS ... Q4H PRN PO 11/05/17 16:15 11/08/17 11:14 DC 11/08/17 00:27 2 TAB Metoclopramide HCl (Reglan Inj) 5 mg TIDM IV. 11/06/17 08:00 12/06/17 07:59 Future Hold 11/09/17 17:03 5 MG Sumatriptan Succinate (Imitrex Sq Inj) 6 mg NOW ONCE SQ 11/06/17 10:45 11/06/17 10:46 DC 11/06/17 11:46 6 MG Potassium Chloride/Sodium Chloride 1,000 ml @ 100 mls/hr Q10H IV 11/06/17 16:30 11/08/17 11:14 DC 11/08/17 07:16 100 MLS/HR Bismuth Subsalicylate (Pepto-Bismol Chew Tab) 1 tab QID PO 11/06/17 21:00 11/20/17 17:01 11/12/17 09:07 1 TAB Doxycycline Hyclate (Vibramycin Cap) 100 mg BID PO 11/06/17 21:00 Future Hold 11/10/17 22:32 100 MG Metronidazole (Flagyl Tab) 500 mg TID PO 11/06/17 21:00 Future Hold 11/07/17 13:30 500 MG Metoclopramide HCl (Reglan Inj) 5 mg NOW STAT IV. 11/06/17 20:44 11/06/17 20:53 DC 11/06/17 21:06 5 MG Sumatriptan Succinate (Imitrex Sq Inj) 6 mg NOW ONCE SQ 11/07/17 09:45 11/07/17 12:24 DC 11/07/17 13:30 6 MG Metronidazole 500 mg/Prmx 100 ml @ 100 mls/hr Q8H IV 11/07/17 22:00 11/21/17 21:59 11/12/17 06:05 100 MLS/HR Sumatriptan Succinate (Imitrex Sq Inj) 6 mg NOW ONCE SQ 11/08/17 12:30 11/08/17 12:31 DC 11/08/17 13:05 6 MG Morphine Sulfate (MoRPHine SULFATE INJ) 2 mg Q4 PRN IV 11/08/17 11:15 11/22/17 11:14 11/11/17 09:39 2 MG Doxycycline Hyclate 100 mg/ Dextrose 110 ml @ 50 mls/hr Q12 IV 11/11/17 09:00 11/21/17 08:59 Future Hold 11/11/17 10:29 50 MLS/HR Ondansetron HCl 8 mg/Dextrose 54 ml @ 216 mls/hr Q6H PRN IV 11/11/17 14:30 12/11/17 14:29 11/12/17 06:02 216 MLS/HR Diphenhydramine HCl (Benadryl Inj) 25 mg Q6H PRN IV 11/11/17 14:30 12/11/17 14:29 11/12/17 09:06 25 MG (Kathernie Clifton CRNP) Objective Vital Signs Date Time Temp Pulse Resp B/P (MAP) Pulse Ox O2 Delivery O2 Flow Rate FiO2 11/12/17 08:00 Room Air 11/12/17 07:19 36.6 61 17 90/55 (67) 99 11/12/17 00:00 Room Air 11/11/17 23:00 36.9 78 20 90/58 (69) 95 Room Air 11/11/17 20:00 Room Air 11/11/17 14:46 36.6 67 16 104/71 (82) 100 Room Air (Katherine Clifton CRNP) Physical Exam Notes: General: no distress Eyes: normal inspection, PERLL Respiratory: chest non tender, clear to auscultation, normal breath sounds, no respiratory distress, no accessory muscle use Cardiac: regular rate and rhythm, no rub or gallop, no murmur, no edema, no jvd GI/: active bowel sounds, no abd pain or tenderness, soft, non distended Extremities: normal range of motion, normal strength, non tender Neuro/Psych: alert and oriented x 3, normal mood and affect Skin: normal color, dry (Katherine Clifton CRNP) Assessment and Plan 41 y/o F Hx migraines, chronic pain, iron-deficient anemia admitted November 03, 2017 because of severe anemia possible GI bleeding severe anemia acute blood loss from GI bleeding with hemoglobin at 6 on admission transfused two units, Hb stable for several days, 9.4 two days ago EGD was done on November 03, 2017, report that was visible vessel s/p cautery/ injxn H pylori infection, gastritis: GI recommends Bismuth and PPI BID x 14 days due to allergies, will treat with Flagyl to IV and Doxycycline to IV - patient unable to tolerate po medications so changed to IV - IV doxy discontinued yesterday due to n/v/d - some improvement today ideally would need to be tolerating diet and PO medications prior to discharge Repeat yesterday cbc, prp, lfts and lipase wnl Nausea with vomiting, epigastric pain: triggered by eating, medications treated with Reglan for several days, minimal improvement so stopped checked HIDA with EF, negative for dyskinesis and chronic cholecystitis lipase has been normal, LFT normal, WBC normal seems to be due to gastritis, ulcer - mild improvement with discontinuation of IV doxycycline, but no clear reason why she is not having a resolution to her nausea Possible UTI upon admission, there was no urine culture sent, treated with cipro for total 5 days, now on Flagyl with H pylori infection afebrile, WBC normal no further treatment for UTI Migraine headache no symptoms today Hypokalemia - replaced SCD for DVT prophylaxis, GI prophylaxis is covered, patient is full code Patient continues to be unable to consistently take po - will need to be able to take abx/fluids before discharging (Katherine Clifton ., MAURICIO) CARPET TECHNICIAN Physician Supervision Note: I discussed with Katherine Clifton CARPET TECHNICIAN and agree with findings and plan as documented in the note. Any exceptions or clarifications are listed here: None Patient continues to have increased nausea and any abnormal abdominal examinations. The patient will attempt to use some IV diphenhydramine to try to help reviewing of her labs do not show any significant concern for a physiological source of her nausea No real changes in nausea but continue supportive care treating her H. pylori. One things because of her med allergies she has been on doxycycline which could be the etiology of her nausea will hold her doxycycline continue her Flagyl and her other treatments for peptic ulcer disease and see if her nausea improves if it does not will make it difficult choice to treat her H. pylori due to her multiple drug allergies and intolerances Documented By: Alon Bettencourt (Alon Bettencourt M.D.)
[2017-11-12 15:30] VITALS: BP 92/60; PULSE 73; TEMP 36.9; O2SAT 98
[2017-11-12] MEDS: hydrOXYzine HCL 25 MG TAB PO SCH (21:13)
[2017-11-12 22:40] VITALS: BP 95/66; PULSE 66; TEMP 36.3; O2SAT 96
[2017-11-13] MEDS: METRONIDAZOLE / NSS 500 MG in PREMIXED NSS 100 ML IV SCH ×2 (06:01→14:39)
[2017-11-13] MEDS: ACETAMINOPHEN 325 MG TAB PO PRN ×2 (06:01→10:50)
[2017-11-13] MEDS: ONDANSETRON INJ 8 MG in DEXTROSE 5% 50ML 50 ML IV PRN ×3 (07:06→22:05)
[2017-11-13 07:26] VITALS: BP 97/65; PULSE 59; TEMP 36.9; O2SAT 96
[2017-11-13] MEDS: DiphenhydrAMINE HCL 50 MG/ML VIAL IV PRN ×3 (07:31→22:05)
[2017-11-13 08:00] VITALS: O2SAT 96
[2017-11-13] MEDS: BISMUTH SUBSALICYLATE 262 MG CHEW PO SCH ×4 (08:51→21:09)
[2017-11-13] MEDS ORDERED: DOXYCYCLINE IV 100 MG in DEXTROSE 5% 100ML 100 ML IV ONE (11:30)
[2017-11-13] MEDS ORDERED: NURSING VERBAL MED ORDER ONE (12:45)
[2017-11-13 15:44] VITALS: BP 104/66; PULSE 67; TEMP 36.9; O2SAT 100
--- NOTE | 2017-11-13 16:29 | Hospitalist Progress Note ---
Hospitalist Progress Note Date of Service November 13, 2017. (Katherine Clifton .MAURICIO) Subjective Pt evaluation today including: conversation w/ patient, physical exam, chart review, lab review, conversation w/ absence management consultant (GI) Ms. Sepulveda is feeling better, less nauseas. She was able to eat a small breakfast and keep it down. I did discuss with her that GI recommends she complete the full H. Pylori treatment and she agreed to retry the doxycycline. She also feels comfortable with home IV infusions and is willing to learn from home health how to give herself an infusion. She is having some right lower back/flank pain and is worried as she had a history of kidney stones while she was . She reports this pain is mild whereas her previous kidney stone was very painful ROS Constitutional: no chills, aches, sweats or fever Respiratory: no sob,cough, sputum, or wheezing Cardiac: no chest pain, palpitations, edema, orthopnea or lightheadedness GI: no abdominal pain, vomiting, diarrhea or constipation : no dysuria or hesitancy Extremities: see HPI Skin: no rash All other systems reviewed and negative (Katherine Clifton .MAURICIO) Medications Medications Administered Medications (Trade) Dose Ordered Sig/Demetria Route Start Time Stop Time Status Last Admin Dose Admin Ondansetron HCl (Zofran Inj) 4 mg NOW STAT IV 11/03/17 00:42 11/03/17 00:44 DC 11/03/17 01:02 4 MG Fentanyl Citrate (Fentanyl Inj) 75 mcg NOW STAT IV 11/03/17 00:42 11/03/17 00:44 DC 11/03/17 01:02 75 MCG Sodium Chloride 1,000 ml @ 999 mls/hr Q1H1M STAT IV 11/03/17 00:42 11/03/17 01:42 DC 11/03/17 01:02 999 MLS/HR Ondansetron HCl (Zofran Inj) 4 mg NOW STAT IV 11/03/17 00:42 11/03/17 00:44 DC 11/03/17 01:02 4 MG Fentanyl Citrate (Fentanyl Inj) 50 mcg NOW STAT IV 11/03/17 01:55 11/03/17 01:56 DC 11/03/17 02:06 50 MCG Lorazepam (Ativan Inj) 1 mg NOW STAT IV 11/03/17 01:55 11/03/17 01:56 DC 11/03/17 02:06 1 MG Pantoprazole Sodium 40 mg/ Syringe 10 ml @ 5 mls/min NOW ONCE IV 11/03/17 03:00 11/03/17 03:01 DC 11/03/17 03:51 5 MLS/MIN Hydroxyzine HCl (Vistaril Tab) 25 mg DAILY PO 11/03/17 09:00 11/05/17 00:29 DC 11/04/17 07:48 25 MG Potassium Chloride/Dextrose/ Sod Cl 1,000 ml @ 100 mls/hr Q10H IV 11/03/17 05:00 11/03/17 14:59 DC 11/03/17 06:39 100 MLS/HR Acetaminophen (Tylenol Tab) 650 mg Q4H PRN PO 11/03/17 03:30 12/03/17 03:29 11/13/17 10:50 650 MG Ondansetron HCl (Zofran Inj) 4 mg Q6H PRN IV 11/03/17 03:30 11/11/17 14:09 DC 11/11/17 09:38 4 MG Potassium Chloride 100 ml @ 100 mls/hr Q1H IV 11/03/17 05:00 11/03/17 06:59 DC 11/03/17 08:02 100 MLS/HR Magnesium Sulfate 100 ml @ 100 mls/hr NOW STAT IV 11/03/17 04:50 11/03/17 05:49 DC 11/03/17 04:57 100 MLS/HR Hydromorphone HCl (Dilaudid Inj) 0.5 mg Q4H PRN IV 11/03/17 04:00 11/05/17 14:36 DC 11/05/17 11:38 0.5 MG Pantoprazole Sodium 40 mg/ Syringe 10 ml @ 5 mls/min DAILY@09,21 IV 11/03/17 21:00 11/05/17 09:04 DC 11/05/17 07:59 5 MLS/MIN Ondansetron HCl (Zofran Inj) 4 mg ONE PRN IV 11/03/17 16:00 11/03/17 21:00 DC 11/03/17 17:07 4 MG Sucralfate (Carafate Susp) 1 gm ACHS PO 11/03/17 21:00 11/05/17 18:17 DC 11/05/17 16:44 1 GM Dexamethasone Sodium Phosphate (Decadron Inj) 8 mg STK-MED ONCE .ROUTE 11/03/17 17:34 11/03/17 17:35 DC 11/03/17 17:37 8 MG Scopolamine (Transderm-Scop Patch) 1.5 mg STK-MED ONCE TD 11/03/17 17:34 11/03/17 17:35 DC 11/03/17 17:37 1.5 MG Miscellaneous (Remove Transderm-Scop Patch) 1 ea Q72H N/A 11/06/17 17:45 11/06/17 17:46 DC 11/06/17 17:45 1 EA Miscellaneous Information (Check Scopolamine Patch Placement) 1 ea QS N/A 11/04/17 00:00 11/08/17 23:42 DC 11/06/17 16:01 1 EA Ciprofloxacin (Cipro Tab) 500 mg BID PO 11/04/17 09:00 11/05/17 14:36 DC 11/05/17 07:59 500 MG Nitrofurantoin Macrocrystals (Macrobid Cap) 100 mg BID PO 11/04/17 21:00 11/09/17 09:01 DC 11/09/17 08:39 100 MG Hydroxyzine HCl (Vistaril Tab) 25 mg HS PO 11/05/17 21:00 12/03/17 08:59 11/12/17 21:13 25 MG Hydroxyzine HCl (Vistaril Tab) 25 mg 0028 ONCE PO 11/05/17 00:28 11/05/17 00:31 DC 11/05/17 00:37 25 MG Pantoprazole Sodium (Protonix Tab) 40 mg BID PO 11/05/17 21:00 11/09/17 20:59 DC 11/09/17 07:45 40 MG Ciprofloxacin (Cipro Tab) 500 mg BID PO 11/05/17 21:00 11/07/17 14:14 DC 11/07/17 08:34 500 MG Acetaminophen/ Butalbital/ Caffeine (Fioricet Tab) 1-2 TABLETS ... Q4H PRN PO 11/05/17 16:15 11/08/17 11:14 DC 11/08/17 00:27 2 TAB Metoclopramide HCl (Reglan Inj) 5 mg TIDM IV. 11/06/17 08:00 12/06/17 07:59 Future Hold 11/09/17 17:03 5 MG Sumatriptan Succinate (Imitrex Sq Inj) 6 mg NOW ONCE SQ 11/06/17 10:45 11/06/17 10:46 DC 11/06/17 11:46 6 MG Potassium Chloride/Sodium Chloride 1,000 ml @ 100 mls/hr Q10H IV 11/06/17 16:30 11/08/17 11:14 DC 11/08/17 07:16 100 MLS/HR Bismuth Subsalicylate (Pepto-Bismol Chew Tab) 1 tab QID PO 11/06/17 21:00 11/20/17 17:01 11/13/17 13:21 1 TAB Doxycycline Hyclate (Vibramycin Cap) 100 mg BID PO 11/06/17 21:00 11/13/17 11:27 DC 11/10/17 22:32 100 MG Metronidazole (Flagyl Tab) 500 mg TID PO 11/06/17 21:00 Future Hold 11/07/17 13:30 500 MG Metoclopramide HCl (Reglan Inj) 5 mg NOW STAT IV. 11/06/17 20:44 11/06/17 20:53 DC 11/06/17 21:06 5 MG Sumatriptan Succinate (Imitrex Sq Inj) 6 mg NOW ONCE SQ 11/07/17 09:45 11/07/17 12:24 DC 11/07/17 13:30 6 MG Metronidazole 500 mg/Prmx 100 ml @ 100 mls/hr Q8H IV 11/07/17 22:00 11/21/17 21:59 11/13/17 14:39 100 MLS/HR Sumatriptan Succinate (Imitrex Sq Inj) 6 mg NOW ONCE SQ 11/08/17 12:30 11/08/17 12:31 DC 11/08/17 13:05 6 MG Morphine Sulfate (MoRPHine SULFATE INJ) 2 mg Q4 PRN IV 11/08/17 11:15 11/22/17 11:14 11/11/17 09:39 2 MG Doxycycline Hyclate 100 mg/ Dextrose 110 ml @ 50 mls/hr Q12 IV 11/11/17 09:00 11/13/17 11:27 DC 11/11/17 10:29 50 MLS/HR Ondansetron HCl 8 mg/Dextrose 54 ml @ 216 mls/hr Q6H PRN IV 11/11/17 14:30 12/11/17 14:29 11/13/17 07:06 216 MLS/HR Diphenhydramine HCl (Benadryl Inj) 25 mg Q6H PRN IV 11/11/17 14:30 12/11/17 14:29 11/13/17 07:31 25 MG Doxycycline Hyclate 100 mg/ Dextrose 110 ml @ 50 mls/hr TODAY@1130 ONCE IV 11/13/17 11:30 11/13/17 13:41 DC 11/13/17 11:45 50 MLS/HR (Katherine Clifton CRNP) Objective Vital Signs Date Time Temp Pulse Resp B/P (MAP) Pulse Ox O2 Delivery O2 Flow Rate FiO2 11/13/17 15:44 36.9 67 18 104/66 (79) 100 Room Air 11/13/17 08:00 96 Room Air 11/13/17 07:26 36.9 59 20 97/65 (76) 96 Room Air 11/13/17 00:00 Room Air 11/12/17 22:40 36.3 66 20 95/66 (76) 96 Room Air 11/12/17 20:00 Room Air (Katherine Clifton CRNP) Physical Exam Notes: General: no distress Eyes: normal inspection, PERLL Respiratory: chest non tender, clear to auscultation, normal breath sounds, no respiratory distress, no accessory muscle use Cardiac: regular rate and rhythm, no rub or gallop, no murmur, no edema, no jvd GI/: active bowel sounds, no abd pain or tenderness, soft, non distended Extremities: normal range of motion, normal strength, non tender, 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 digger operator 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 Neuro/Psych: alert and oriented x 3, normal mood and affect Skin: normal color, dry (Katherine Clifton CRNP) Assessment and Plan 41 y/o F Hx migraines, chronic pain, iron-deficient anemia admitted November 03, 2017 because of severe anemia possible GI bleeding severe anemia acute blood loss from GI bleeding with hemoglobin at 6 on admission transfused two units, Hb stable for several days, 9.4 two days ago EGD was done on November 03, 2017, report that was visible vessel s/p cautery/ injxn H pylori infection, gastritis: GI recommends Bismuth and PPI BID x 14 days due to allergies, will treat with Flagyl to IV and Doxycycline to IV - patient unable to tolerate po medications so changed to IV - IV doxy discontinued over the weekend due to n/ v/d - improved - per GI, patient really needs to complete entire treatment so will restart doxy and hopefully patient will be able to tolerate now that her nausea is under control. US Guided peripheral IV for home infusions. Nausea with vomiting, epigastric pain: triggered by eating, medications treated with Reglan for several days, minimal improvement so stopped checked HIDA with EF, negative for dyskinesis and chronic cholecystitis lipase has been normal, LFT normal, WBC normal seems to be due to gastritis, ulcer - mild improvement with discontinuation of IV doxycycline, but no clear reason why she is not having a resolution to her nausea - need to restart doxy as above Possible UTI upon admission, there was no urine culture sent, treated with cipro for total 5 days, now on Flagyl with H pylori infection afebrile, WBC normal no further treatment for UTI left flank/back pain likely musculoskeletal - will check U/A Migraine headache no symptoms today Hypokalemia - replaced SCD for DVT prophylaxis, GI prophylaxis is covered, patient is full code (Katherine Clifton, MAURICIO) Supervising Note Dr. Ewing I performed a history and physical examination on the patient. I reviewed above note and agree with it. I discussed plan with APC and patient. During my face to face encounter with the patient, I answered all of the patient's questions. Mian continue IV antibiotics to complete course of her h. pylori treatment. Mian obtain peripheral us guided iv line for home iv antibiotics (Antonio Ewing M.D.)
[2017-11-13] MEDS ORDERED: DOXYCYCLINE IV 100 MG in DEXTROSE 5% 100ML 100 ML IV SCH (21:00)
[2017-11-13] MEDS: SODIUM CHLORIDE 0.9% 500ML 500 ML IV SCH ×2 (21:08→22:05)
[2017-11-13] MEDS: PANTOprazole SOD 40 MG TAB PO SCH (21:09)
[2017-11-13] MEDS: hydrOXYzine HCL 25 MG TAB PO SCH (21:35)
[2017-11-13] MEDS: DOXYCYCLINE IV 100 MG in DEXTROSE 5% 100ML 100 ML IV SCH (22:05)
[2017-11-14 00:14] VITALS: BP 97/64; PULSE 68; TEMP 37.1; O2SAT 99
[2017-11-14] MEDS: METRONIDAZOLE / NSS 500 MG in PREMIXED NSS 100 ML IV SCH ×3 (02:08→16:47)
[2017-11-14] MEDS: ONDANSETRON INJ 8 MG in DEXTROSE 5% 50ML 50 ML IV PRN ×2 (07:38→16:46)
[2017-11-14 07:48] VITALS: BP 118/82; PULSE 69; TEMP 36.5; O2SAT 99
[2017-11-14 08:00] VITALS: O2SAT 99
[2017-11-14] MEDS: PANTOprazole SOD 40 MG TAB PO SCH ×2 (08:53→21:11)
[2017-11-14] MEDS: BISMUTH SUBSALICYLATE 262 MG CHEW PO SCH ×4 (08:53→21:11)
[2017-11-14] MEDS: SODIUM CHLORIDE 0.9% 500ML 500 ML IV SCH ×2 (09:00→21:21)
[2017-11-14] MEDS: DOXYCYCLINE IV 100 MG in DEXTROSE 5% 100ML 100 ML IV SCH ×2 (10:40→21:21)
[2017-11-14 11:57] VITALS: Ht 165.1 cm; Wt 58.7 kg
[2017-11-14 15:41] VITALS: BP 93/65; PULSE 85; TEMP 36.7; O2SAT 97
[2017-11-14] MEDS: ACETAMINOPHEN 325 MG TAB PO PRN (16:22)
[2017-11-14] MEDS: DiphenhydrAMINE HCL 50 MG/ML VIAL IV PRN (16:46)
[2017-11-14] MEDS: hydrOXYzine HCL 25 MG TAB PO SCH (21:11)
--- NOTE | 2017-11-14 22:05 | Progress Note ---
Subjective Date of Service: November 14, 2017. Subjective Pt evaluation today including: conversation w/ patient, conversation w/ family Patient reports generalized malaise. Patient reports feeling somewhat worried about going home, given that she may develop nausea again. Patient reports that her peripheral line was painful and requests a PICC line. Problem List Medical Problems: (1) Anemia Status: Acute (2) Dehydration Status: Acute (3) Gastritis Status: Acute (4) Intractable abdominal pain Status: Acute (5) Intractable vomiting Status: Acute (6) Iron deficiency anemia Status: Acute (7) Pelvic pain Status: Acute (8) Vomiting Status: Acute Review of Systems Constitutional: No fever, No chills Eyes: No worsening of vision ENT: No hearing loss Respiratory: No cough Cardiac: No chest pain Abdomen: + nausea, No pain Female : No dysuria Neurologic: No memory loss Psychiatric: No depression symptoms Heme: No abnormal bleeding/bruising Endo: No fatigue Skin: No rash All Other Systems: Reviewed and Negative Objective Vital Signs Date Time Temp Pulse Resp B/P (MAP) Pulse Ox O2 Delivery O2 Flow Rate FiO2 11/14/17 17:00 Room Air 11/14/17 15:41 36.7 85 16 93/65 (74) 97 Room Air 11/14/17 08:00 99 Room Air 11/14/17 07:48 36.5 69 16 118/82 (94) 99 Room Air 11/14/17 00:15 Room Air 11/14/17 00:14 37.1 68 20 97/64 (75) 99 Room Air Physical Exam Comments: General: no distress Eyes: normal inspection, PERLL Respiratory: chest non tender, clear to auscultation, normal breath sounds, no respiratory distress, no accessory muscle use Cardiac: regular rate and rhythm, no rub or gallop, no murmur, no edema, no jvd GI/: active bowel sounds, no abd pain or tenderness, soft, non distended Extremities: normal range of motion, normal strength, non tender, left lower tenter frame back tender 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 Neuro/Psych: alert and oriented x 3, normal mood and affect Skin: normal color, dry Assessment and Plan 41 y/o F Hx migraines, chronic pain, iron-deficient anemia admitted November 03, 2017 because of severe anemia possible GI bleeding severe anemia acute blood loss from GI bleeding with hemoglobin at 6 on admission transfused two units, Hb stable for several days, 9.4 on 11/11 EGD was done on November 03, 2017, report that was visible vessel s/p cautery/ injxn H pylori infection, gastritis: GI recommends Bismuth and PPI BID x 14 days due to allergies, will treat with Flagyl to IV and Doxycycline to IV - patient unable to tolerate po medications so changed to IV - IV doxy discontinued over the weekend due to n/ v/d - improved - per GI, patient really needs to complete entire treatment so will restart doxy and hopefully patient will be able to tolerate now that her nausea is under control. PICC line for home infusions as Peripheral line blew Nausea with vomiting, epigastric pain: triggered by eating, medications treated with Reglan for several days, minimal improvement so stopped checked HIDA with EF, negative for dyskinesis and chronic cholecystitis lipase has been normal, LFT normal, WBC normal seems to be due to gastritis, ulcer - mild improvement with discontinuation of IV doxycycline, but no clear reason why she is not having a resolution to her nausea - need to restarted doxy as above Possible UTI upon admission, there was no urine culture sent, treated with cipro for total 5 days, now on Flagyl with H pylori infection afebrile, WBC normal no further treatment for UTI left flank/back pain likely musculoskeletal - will check U/A Migraine headache no symptoms today Hypokalemia - resolved. SCD for DVT prophylaxis, GI prophylaxis is covered, patient is full code Patient is staying the day due to home health not being able to give medicine this PM or early AM. Continued [facility] stay due to: multiple IV medications needed Discharge planning: home with IV medication
[2017-11-14 23:43] VITALS: BP 120/71; PULSE 71; TEMP 36.7; O2SAT 98
[2017-11-15] MEDS: METRONIDAZOLE / NSS 500 MG in PREMIXED NSS 100 ML IV SCH ×2 (00:51→08:13)
[2017-11-15] MEDS: DiphenhydrAMINE HCL 50 MG/ML VIAL IV PRN (00:51)
[2017-11-15] MEDS: ONDANSETRON INJ 8 MG in DEXTROSE 5% 50ML 50 ML IV PRN (06:00)
[2017-11-15] MEDS ORDERED: DOXYCYCLINE IV 100 MG in DEXTROSE 5% 100ML 100 ML IV SCH (06:00)
[2017-11-15 07:05] VITALS: BP 103/76; PULSE 70; TEMP 36.8; O2SAT 100
[2017-11-15] MEDS: PANTOprazole SOD 40 MG TAB PO SCH (07:55)
[2017-11-15 08:00] VITALS: O2SAT 96
[2017-11-15] MEDS: SODIUM CHLORIDE 0.9% 500ML 500 ML IV SCH (08:13)
[2017-11-15] MEDS: BISMUTH SUBSALICYLATE 262 MG CHEW PO SCH (08:52)
[2017-11-15 08:54] VITALS: BP 103/76; PULSE 70; TEMP 36.8; O2SAT 100
[2017-11-15] MEDS ORDERED: ONDA4TAB65 PO (09:39)
[2017-11-15] MEDS ORDERED: BISM262C6 PO (09:39)
[2017-11-15] MEDS ORDERED: PRT40 PO (09:39)
--- NOTE | 2017-11-15 09:46 | Discharge Instructions ---
Discharge Instructions Date of Service November 15, 2017. Admission Reason for Admission: Anemia, Gastritis Discharge Discharge Diagnosis / Problem: Anemia, gastritis Discharge Goals Goal(s): Improve disease control Activity Recommendations Activity Limitations: resume your previous activity . Instructions / Follow-Up Instructions / Follow-Up Please follow up with your primary care provider within about a week. Please follow up with GI in 1-2 weeks It is very important that you complete your antibiotics. Please call GI right away if you feel you cannot complete this regimen to obtain their advice. You will complete another week of antibiotics Current Hospital Diet Patient's current hospital diet: Low Fat Diet Discharge Diet Recommended Diet: Low Fat Diet Procedures Procedures Performed: EGD with Epinephrine injection to ulcer base, Gold Heater probe therapy and Gastric antrum biopsies Abd/pelvis CT HIDA scan Pending Studies Studies pending at discharge: no Medical Emergencies . Who to Call and When: Medical Emergencies: If at any time you feel your situation is an emergency, please call 911 immediately. . Non-Emergent Contact Non-Emergency issues call your: Primary Care Provider Call Non-Emergent contact if: you have a fever, you have any medication questions . . "Provider Documentation" section prepared by Katherine Clifton. .
--- NOTE | 2017-11-15 10:14 | Discharge Summary ---
Discharge Summary Date of Service November 15, 2017. Discharge Summary Admission Date: Nov 03, 2017 at 12:09 Discharge Date: November 15, 2017 Discharge Disposition: Home with services Principal Diagnosis: severe anemia acute blood loss d/t GI bleeding, gastric ulcer Problems/Secondary Diagnoses: H.pylori infection, Nausea with vomiting, UTI, Migraine headache, Hypokalemia Immunizations: Have You Had Influenza Vaccine: No History of Tetanus Vaccine?: Yes History of Pneumococcal: No History of Hepatitis B Vaccine: Unknown Procedures: HEPATOBILIARY EF IMAGING CLINICAL HISTORY: 41 years-old Female presenting with Nausea and vomiting, intractable. TECHNIQUE: Dynamic imaging of the gallbladder was initiated 65 minutes after administration of 5.5 mCi of technetium 99m Choletec. Imaging was obtained every 5 minutes over a span of 40 minutes. 1.2 mcg of sincalide was injected 5 minutes prior to the start of imaging. The gallbladder ejection fraction was calculated. COMPARISON: CT of abdomen pelvis from 11/03/2017. FINDINGS: Hepatobiliary scan demonstrates normal radiotracer uptake by the liver and normal excretion into the common duct and gallbladder. Expected radiotracer activity within small bowel indicates an unobstructed common duct. The gallbladder subsequently demonstrates normal contraction with decreased radiotracer activity. Gallbladder ejection fraction measures 77%. Reference range: Unequivocally normal: Greater than 50% Unequivocally abnormal: Less than 35% IMPRESSION: 1. Normal gallbladder ejection fraction. No evidence of chronic cholecystitis. Electronically signed by: Joseph Lewis M.D. 11/10/2017 5:00 PM [~ rep ct add3]] ABDOMEN AND PELVIS CT WITH IV CONTRAST CT DOSE: 278.97 mGy.cm HISTORY: left flank pain, RLQ pain, n/v/fever. ho Hysterectomy TECHNIQUE: Multiaxial CT images of the abdomen and pelvis were performed following the use of intravenous contrast. A dose lowering technique was utilized adhering to the principles of ALARA. COMPARISON STUDY: Abdomen and pelvis CT 10/28/2013. FINDINGS: The lung bases are clear. No pneumoperitoneum. No pneumatosis. No suspicious lytic or blastic osseous lesions. The liver, spleen, adrenal glands, pancreas, and kidneys are unremarkable. Small nodular focus of enhancement at the gallbladder fundus. This favors adenomyomatosis. The uterus is surgically absent. Normal bladder. No evidence for bowel obstruction. The appendix is clearly identified. This could be surgically absent given the patient's history of hysterectomy. Moderate edema within the proximal to mid gastric wall. Multiple mildly enlarged perigastric lymph nodes. IMPRESSION: 1. Moderate thickening of the proximal to mid gastric wall consistent with a gastritis. Multiple mildly enlarged perigastric lymph nodes. These are likely reactive. Endoscopy is recommended for further evaluation to evaluate the cause of the gastric wall thickening. 2. The appendix not identified but is likely surgically absent given the patient's history of hysterectomy. Electronically signed by: David Prado M.D. 11/03/2017 7:08 AM Consultations: Dr. Blanchard from GI Medication Reconciliation New Medications: Doxycycline Hyclate (Doxy 100) 100 Mg Inj 100 MG IV BID for 7 Days, #14 DOSE Metronidazole in NaCl (Metronidazole 500-0.79 mg/100Ml-%) 1 Inj Inj 500 MG IV Q8H for 7 Days, #21 DOSE Bismuth Subsalicylate (Pepto-Bismol) 262 Mg Chw 1 TAB PO QID for 6 Days, #24 DOSE Pantoprazole (Pantoprazole Sodium) 40 Mg Tab 40 MG PO BID for 14 Days, #28 TAB Changed Medications: Ondansetron Hcl (Zofran) 4 Mg Tab 4 MG PO TID PRN for Nausea or Vomiting for 6 Days, #18 TAB (Changed from: BID) Continued Medications: Ferrous Sulfate (Iron) 325 Mg Tab 325 MG PO BID Fexofenadine Hcl ([place] Allergy) 180 Mg Tab 180 MG PO DAILY PRN for Seasonal Allergies for 14 Days, #14 TAB 2 Refills Hydroxyzine Pamoate (Vistaril) 25 Mg Cap 25 MG PO DAILY for 30 Days, #30 CAP Discharge Exam ROS Constitutional: no chills, aches, sweats or fever Respiratory: no sob,cough, sputum, or wheezing Cardiac: no chest pain, palpitations, edema, orthopnea or lightheadedness GI: no abdominal pain, mild nausea, vomiting, diarrhea or constipation : no dysuria or hesitancy Extremities: no joint pain or weakness Skin: no rash All other systems reviewed and negative Overall patient is feeling better General: no distress Eyes: normal inspection, PERLL Respiratory: chest non tender, clear to auscultation, normal breath sounds, no respiratory distress, no accessory muscle use Cardiac: regular rate and rhythm, no rub or gallop, no murmur, no edema, no jvd GI/: active bowel sounds, no abd pain or tenderness, soft, non distended Extremities: normal range of motion, normal strength, non tender Neuro/Psych: alert and oriented x 3, normal mood and affect Skin: normal color, dry Hospital Course 41 y/o F Hx migraines, chronic pain, iron-deficient anemia admitted November 03, 2017 because of severe anemia and complaints of nausea with temperature of 102 Severe anemia acute blood loss from GI bleeding with hemoglobin at 6 on admission, H pylori infection, gastritis, gastric ulcer transfused two units, Hgb stable for several days,10.6 today EGD was done on November 03, 2017, report that was visible vessel s/p cautery/ injxn GI recommends Bismuth and PPI BID, x 14 days Due to allergies, For the antibiotic portion of her H.Pylori treatment - Flagyl and Doxycycline IV were chosen due to multiple allergies and inability to tolerate po medications due to nausea - IV doxy discontinued over the weekend due to n/v/d - improved - per GI, patient really needs to complete entire treatment so will restarted doxy and hopefully patient will be able to tolerate now that her nausea is under control. Abx should continue for total of 14 days Midline placed for home infusions Nausea with vomiting, epigastric pain: triggered by eating, medications treated with Reglan for several days, minimal improvement so stopped checked HIDA with EF, negative for dyskinesis and chronic cholecystitis lipase has been normal, LFT normal, WBC normal seems to be due to gastritis, ulcer - mild improvement with discontinuation of IV doxycycline, but no clear reason why she is not having a resolution to her nausea - need to restart doxy as above Possible UTI upon admission, there was no urine culture sent, treated with cipro for total 5 days, now on Flagyl and doxy with H pylori infection afebrile, WBC normal no further treatment for UTI Migraine headache no symptoms today Hypokalemia - replaced Total Time Spent: Greater than 30 minutes This includes examination of the patient, discharge planning, medication reconciliation, and communication with other providers. Discharge Instructions Please refer to the electronic Patient Visit Report (Discharge Instructions) for additional information. Follow-Up GI in 1-2 weeks PCP in 1 week
[2017-11-15] MEDS ORDERED: METR1INJ2 IV (10:33)
[2017-11-15] MEDS ORDERED: [UNRECOGNIZED DRUG - CODE] IV (10:33)
== END 2017-11-15 11:06 | disposition home health service (06) | DRG 378 ==
LOC: C.EDB 00:20 → C.MS2W 03:30 → ENRESERV 03:53 → OBSVTOIN 12:09 → ENRESERV 12:18 → C.MED 13:56 → ENRESERV 17:51 → C.MSICU 18:24 → ENRESERV 11-04 09:37 → C.MS2W 11-04 10:23
PROVIDERS: ADMIT Internal Medicine; ATTEND Internal Medicine Sports Medicine
PROC: 0W3P8ZZ Control Bleeding in Gastrointestinal Tract, Via Natural or Artificial Opening Endoscopic (ICD-10-PCS; principal; 2017-11-03 18:00)
PROC: 0DB68ZX Excision of Stomach, Via Natural or Artificial Opening Endoscopic, Diagnostic (ICD-10-PCS; principal; 2017-11-03 18:00)
DX: K25.4 Chronic or unspecified gastric ulcer with hemorrhage (principal); D62 Acute posthemorrhagic anemia; K22.10 Ulcer of esophagus without bleeding; N39.0 Urinary tract infection, site not specified; A04.8 Other specified bacterial intestinal infections; T39.395A Adverse effect of other nonsteroidal anti-inflammatory drugs [NSAID], initial encounter; F41.9 Anxiety disorder, unspecified; F32.9 Major depressive disorder, single episode, unspecified; M79.7 Fibromyalgia; D50.9 Iron deficiency anemia, unspecified; E87.6 Hypokalemia; R50.9 Fever, unspecified; G89.29 Other chronic pain; M54.9 Dorsalgia, unspecified; G43.909 Migraine, unspecified, not intractable, without status migrainosus; Z79.899 Other long term (current) drug therapy; Z87.891 Personal history of nicotine dependence; Z88.0 Allergy status to penicillin; Z88.1 Allergy status to other antibiotic agents; Z88.2 Allergy status to sulfonamides; Z91.040 Latex allergy status

== ENCOUNTER → 2017-11-17 | Outpatient (CLI) | payer OTHER ==
[~2017-11-17] MED LIST changes: +BISM262C6 PO; -FERR1TAB13 PO; +FERR1TAB23 PO; +FEXO1TAB49 PO; +HYDR25CA PO; +METR1INJ2 IV; +ONDA4TAB65 PO; +PRT40 PO; -TRAM-10 PO; +[UNRECOGNIZED DRUG - CODE] IV
[2017-11-17 11:44] LABS: ALBUMIN 3.5 gm/dl (3.4-5.0); ALT/SGPT 27 U/L (12-78); AST/SGOT 28 U/L (15-37); BLOOD UREA NITROGEN 8 mg/dl (7-18); CALCIUM 8.4 mg/dl (8.5-10.1); CARBON DIOXIDE 26 mmol/L (21-32); CREATININE 0.71 mg/dl (0.60-1.20); GLUCOSE 97 mg/dl (70-99); POTASSIUM 3.7 mmol/L (3.5-5.1); SODIUM 138 mmol/L (136-145)
[2017-11-17 11:47] LABS: ALKALINE PHOSPHATASE 142 U/L (45-117); TOTAL PROTEIN 7.9 gm/dl (6.4-8.2)
[2017-11-17 12:59] LABS: HEMATOCRIT 36.1 % (37-47); HEMOGLOBIN 10.5 g/dL (12.0-16.0); MEAN CELL VOLUME 65.9 fL (80-100); MEAN CORPUSCULAR HEMOGLOBIN 19.2 pg (25-34); MEAN CORPUSCULAR HGB CONC 29.1 g/dl (32-36); PLATELET COUNT 432 K/uL (130-400); RED CELL DISTRIBUTION WIDTH CV 26.1 % (11.5-14.5); RED CELL DISTRIBUTION WIDTH SD 58.9 fL (36.4-46.3); WHITE BLOOD COUNT 7.78 K/uL (4.8-10.8)
[2017-11-17 13:09] LABS: BASO % 0.5 %; BASO ABS # 0.04 K/uL (0-0.2); EOS % 3.2 %; EOS ABS # 0.25 K/uL (0-0.5); IG# 0.01 K/uL (0.00-0.02); LYMPH % 25.3 %; LYMPH ABS # 1.97 K/uL (1.2-3.4); MONO % 7.8 %; MONO ABS # 0.61 K/uL (0.11-0.59); NEUT % 63.1 %
== END | disposition home or self-care (01) ==
LOC: C.LABSPEC 11:18
PROVIDERS: ATTEND Internal Medicine
DX: K29.70 Gastritis, unspecified, without bleeding (principal)

== ENCOUNTER 2023-04-24 08:53 | Observation (INO) ==
[2023-04-24] MEDS ORDERED: ONDANSETRON INJ 2 MG/ML 2 ML VIAL IV STA ×2 (09:02→09:40)
[2023-04-24 09:27] LABS: Basophils # (auto) 0.03 K/uL (0.00-0.20); Basophils % (auto) 0.3 %; Eosinophils # (auto) 0.19 K/uL (0.00-0.50); Eosinophils % (auto) 1.9 %; Hematocrit (blood only) 50.7 % (37.0-47.0); Hemoglobin 16.2 g/dl (12.0-16.0); Immature Granulocytes # (auto) 0.03 K/uL (0.01-0.20); Immature Granulocytes % (auto) 0.3 %; Lymphocytes # (auto) 1.75 K/uL (1.20-3.40); Lymphocytes % (auto) 17.6 %; Mean Corpuscular Hemoglobin 25.6 pg (25.0-34.0); Mean Corpuscular Volume 80.1 fL (80.0-100.0); Mean Platelet Volume 10.2 fL (9.4-12.4); Monocytes # (auto) 0.59 K/uL (0.11-0.59); Monocytes % (auto) 5.9 %; Neutrophils # (auto) 7.38 K/uL (1.40-6.50); Platelet Count 422 K/uL (130-400); RDW Coefficient of Variation 15.8 % (11.5-14.5); RDW Standard Deviation 38.1 fL (36.4-46.3); Red Blood Count 6.33 M/uL (4.20-5.40); White Blood Count 9.97 K/ul (4.8-10.8)
[2023-04-24] MEDS ORDERED: KETOROLAC TROMETHAMINE 15 MG/ML VIAL IV ONE (09:40)
[2023-04-24] MEDS ORDERED: SODIUM CHLORIDE 0.9% 2,000 ML IV ONE (09:40)
--- NOTE | 2023-04-24 09:46 | Emergency Department Note ---
Impression & Plan Abdominal pain, Gastric ulcer, Gastritis, Hematemesis ED Provider Note NAME: OPHELIA GORDILLO AGE: 47 SEX: F : 1975 ARRIVES VIA: Walk-In INFORMANT: Patient ED PROVIDER(S): Michael Gould DO CHIEF COMPLAINT: abdominal pain HPI: Patient is a 47-year-old female who presents to the ER for abdominal pain associate with nausea and vomiting. Symptoms started on Monday. She notes initially on Monday she started with dysuria, urgency, and frequency. She was started on Cipro on . She has she has been vomiting 1-2 times a day but today she has thrown up 4 times. Denies any headache or change in vision. No chest pain or shortness of breath. Normal bowel movements. She has had a hysterectomy as well as a laparoscopic hernia repair multiple exploratory laparotomies for endometriosis. ADDITIONAL HISTORY OBTAINED: Per HPI Chronic Medical/Social Conditions Affecting Care: Per HPI PAST MEDICAL HISTORY:See Below PAST SURGICAL HISTORY:See Below FAMILY HISTORY:See Below SOCIAL HISTORY:See Below HOME MEDICATIONS:See Below ALLERGIES:See Below VITALS:See Below PHYSICAL EXAMINATION: GENERAL: Sitting up in chair holding left upper abdomen, ill-appearing, disheveled EYE EXAM: normal conjunctiva. OROPHARYNX: mucous membranes are moist NECK: supple, no nuchal rigidity, no adenopathy, non-tender LUNGS: Clear to auscultation. Normal chest wall mechanics HEART: no murmurs, S1 normal and S2 normal ABDOMEN: abdomen soft, tender 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 left lower quadrant, normo-active bowel sounds, no masses, no rebound or guarding. UPPER EXTREMITIES: upper extremities are grossly normal. LOWER EXTREMITIES: No pitting edema. NEURO EXAM: Normal sensorium, cranial nerves II-XII grossly intact, normal speech, no gross weakness of arms, no gross weakness of legs. MEDICAL DECISION MAKING: Patient is a 47-year-old female with a past medical history of gastric ulcers which have been clipped in 2018 that presents the ER for abdominal pain nausea vomiting unable to keep anything down with some intermittent coffee-ground emesis. IV was established blood work was obtained. Labs show no significant leukocytosis. Hemoglobin is 16. BMP was unremarkable. BUN was not elevated at 13. LFTs bilirubin was unremarkable. Lipase was normal. UA with nitrites, leuks but greater than [address] does show some enhancement of the kidneys in combination with significant inflammation around the stomach. Patient was given Protonix as well as IV morphine. She was updated bedside. Discussed with gastroenterology Dr. Bojorquez as well as the hospitalist service. GI recommended n.p.o. and Protonix and they will evaluate. External Records Reviewed: Follows with the headache [facility] Dr. Marley Consults/Care Managements Discussions: Per MDM Triage Nursing notes reviewed. Limited review of prior medical records performed Vital Signs: reviewed and remarkable for HTN and tachy Differential diagnosis: Differential diagnoses includes but is not limited to gastritis, peptic ulcer disease, GERD, gallbladder disease, pancreatitis, small bowel obstruction, appendicitis, diverticulitis, hernia, urinary tract infection, torsion, perforation, trauma, infectious. ER treatment provided: See below Diagnostics interpreted by me include EKG and cardiac monitoring as listed below: -Cardiac Monitoring: An order was placed for continuous cardiac monitoring. The monitor shows a rate of 110 with sinus rhythm. -ECG: none -Laboratory studies:Interpreted by me as stated above in MDM and shown below. Imaging studies: Xrays: As interpreted by me:none CTs show: CT abdomen pelvis shows no bowel obstruction per my read CT shows significant mount of inflammation around the stomach Procedures:none Critical Care: None Past Med/Surg History Medical History (Updated 04/24/23 @ 13:53 by Ildefonso Lloyd PA-C) Encounter for gynecological examination Endometriosis Fibromyalgia Gastroenteritis H. pylori infection Migraine with aura and without status migrainosus, not intractable Nausea, vomiting, and diarrhea Nonvenomous insect bite Surgical History H/O dilation and curettage (2002) Previous section (2005) x 2 S/P laparoscopic surgery Family History Grandfather (Maternal) Myocardial infarction Grandfather (Paternal) Myocardial infarction Denies family history of Ovarian cancer Prostate cancer Breast cancer Colorectal cancer Social History Smoking Status: Former smoker Tobacco Type: Cigarettes Second Hand Exposure: No; Do You Dip or Chew Tobacco: No; Hx Alcohol Use: Yes (Occasionally ) Hx Substance Use: No Visual Impairment: No Limitations Hearing Ability: Normal marital status: Current Living Situation: Family current occupational status: employed 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 - [employer] Feels Safe at Home: Yes Dental Care, Regularly: Yes Physical Activity Frequency: 1-2 Times per Week Seatbelt Use: always Sunscreen Use: Yes Allergies Allergies Allergy/AdvReac Type Severity Reaction Status Date / Time Sulfa (Sulfonamide Allergy Mild vomit/diarh Verified 10/26/22 15:06 Antibiotics) ea sulfamethoxazole Allergy Mild vomit/diarh Verified 10/26/22 15:06 ea trimethoprim Allergy Mild vomit/diarh Verified 10/26/22 15:06 ea Penicillins Allergy Unknown hives Verified 10/26/22 15:06 latex AdvReac Intermediate LOCAL Verified 10/26/22 15:06 RASH, ITCHINESS clarithromycin AdvReac Mild vomit Verified 10/26/22 15:06 prochlorperazine AdvReac Mild seizure Verified 10/26/22 15:06 amoxicillin AdvReac Verified 10/26/22 15:06 eletriptan [From Relpax] AdvReac made head Verified 10/26/22 15:06 feel "fuzzy", had blurry vision and didn't help zolmitriptan [From Zomig] AdvReac made head Verified 10/26/22 15:06 feel "fuzzy", had blurry vision and didn't help Home Meds Home Medications Medication Instructions Recorded Confirmed multivitamin 1 tab PO DAILY 03/13/20 04/24/23 melatonin 10 mg capsule 10 mg PO HS PRN Sleep 02/19/21 04/24/23 Previous Rx's Medication Instructions Recorded onabotulinumtoxinA 200 unit See Rx Instructions IM .COMPLEX #1 08/11/22 solution for injection (Botox) ea ondansetron 4 mg disintegrating 4 mg PO TID PRN nausea and 10/13/22 tablet vomiting #30 tabs ubrogepant 100 mg tablet (Ubrelvy) 100 mg PO ONCE 30 days #10 tabs 02/01/23 Results & Data (ED) Vital Signs Vital Signs - 24 hr 04/24/23 08:59 04/24/23 11:28 Temperature 36.0 C L Temperature Source Temporal Artery Scan Pulse Rate 114 H Pulse Rate [Right Finger] 96 H Respiratory Rate 16 20 Respiratory Effort / Characteristics Non-Labored Respiratory Depth Normal Normal Blood Pressure 178/93 H Blood Pressure [Right Arm] 106/86 Blood Pressure Mean 121 Blood Pressure Mean [Right Arm] 92 Pulse Oximetry 98 96 Oxygen Delivery Method Room Air Room Air Sepsis Recent Fever Within 48 Hours No Sepsis New/Unexplained Change in Mental Status N/A Sepsis Action Taken by Nursing No Action Required Laboratory Data 04/24/23 09:16 04/24/23 09:10 Lab Results 04/24/23 04/24/23 04/24/23 Range/Units 09:10 09:16 10:09 WBC 9.97 (4.8-10.8) K/ul RBC 6.33 H (4.20-5.40) M/uL Hgb 16.2 H (12.0-16.0) g/dl Hct 50.7 H (37.0-47.0) % MCV 80.1 (80.0-100.0) fL MCH 25.6 (25.0-34.0) pg MCHC 32.0 (32.0-36.0) g/dL RDW Std Deviation 38.1 (36.4-46.3) fL RDW Coeff of Miladys 15.8 H (11.5-14.5) % Plt Count 422 H (130-400) K/uL MPV 10.2 (9.4-12.4) fL Immature Gran % (Auto) 0.3 % Neut % (Auto) 74.0 % Lymph % (Auto) 17.6 % Laurens % (Auto) 5.9 % Eos % (Auto) 1.9 % Baso % (Auto) 0.3 % Neut # (Auto) 7.38 H (1.40-6.50) K/uL Lymph # (Auto) 1.75 (1.20-3.40) K/uL Laurens # (Auto) 0.59 (0.11-0.59) K/uL Eos # (Auto) 0.19 (0.00-0.50) K/uL Baso # (Auto) 0.03 (0.00-0.20) K/uL Immature Gran # (Auto) 0.03 (0.01-0.20) K/uL Sodium Cancelled 139 Potassium Cancelled 4.0 Chloride Cancelled 101 Carbon Dioxide Cancelled 29 Anion Gap Cancelled 9 BUN Cancelled 13 Creatinine Cancelled 0.80 Est Cr Clr Drug Dosing Cancelled 79.9 Est GFR ( Amer) Cancelled 103.2 Est GFR (Non-Af Amer) Cancelled 89.0 BUN/Creatinine Ratio Cancelled 16.3 Glucose Cancelled 140 H Calcium Cancelled 9.8 Total Bilirubin Cancelled 0.5 AST Cancelled 19 ALT Cancelled 14 Alkaline Phosphatase Cancelled 129 H Total Protein Cancelled 7.7 Albumin Cancelled 4.5 Globulin Cancelled 3.2 Albumin/Globulin Ratio Cancelled 1.4 Lipase 5 L (11-82) U/L Urine Color Urine Appearance (Clear) Urine pH (4.5-7.5) Ur Specific [place] (1.000-1.030) Urine Protein (Negative) Urine Glucose (UA) (Negative) Urine Ketones (Negative) Urine Blood (Negative) Urine Nitrite (Negative) Urine Bilirubin (Negative) Urine Urobilinogen (Negative) Ur Leukocyte Esterase (Negative) Urine WBC (Auto) (0-5) /hpf Urine RBC (Auto) (0-4) /hpf U Hyaline Cast (Auto) (0-5) /lpf U Epithel Cells (Auto) (0-5) /lpf Urine Bacteria (Auto) (Negative) 04/24/23 Range/Units 11:42 WBC (4.8-10.8) K/ul RBC (4.20-5.40) M/uL Hgb (12.0-16.0) g/dl Hct (37.0-47.0) % MCV (80.0-100.0) fL MCH (25.0-34.0) pg MCHC (32.0-36.0) g/dL RDW Std Deviation (36.4-46.3) fL RDW Coeff of Miladys (11.5-14.5) % Plt Count (130-400) K/uL MPV (9.4-12.4) fL Immature Gran % (Auto) % Neut % (Auto) % Lymph % (Auto) % [place] % (Auto) % Eos % (Auto) % Baso % (Auto) % Neut # (Auto) (1.40-6.50) K/uL Lymph # (Auto) (1.20-3.40) K/uL [place]rens # (Auto) (0.11-0.59) K/uL Eos # (Auto) (0.00-0.50) K/uL Baso # (Auto) (0.00-0.20) K/uL Immature Gran # (Auto) (0.01-0.20) K/uL Sodium Potassium Chloride Carbon Dioxide Anion Gap BUN Creatinine Est Cr Clr Drug Dosing Est GFR ( Amer) Est GFR (Non-Af Amer) BUN/Creatinine Ratio Glucose Calcium Total Bilirubin AST ALT Alkaline Phosphatase Total Protein Albumin Globulin Albumin/Globulin Ratio Lipase (11-82) U/L Urine Color Dark Yellow Urine Appearance Clear (Clear) Urine pH 7.0 (4.5-7.5) Ur Specific [place] 1.022 (1.000-1.030) Urine Protein 1+ H (Negative) Urine Glucose (UA) Negative (Negative) Urine Ketones 1+ H (Negative) Urine Blood Negative (Negative) Urine Nitrite Positive A (Negative) Urine Bilirubin Negative (Negative) Urine Urobilinogen Negative (Negative) Ur Leukocyte Esterase Trace H (Negative) Urine WBC (Auto) 1-5 (0-5) /hpf Urine RBC (Auto) 0-4 (0-4) /hpf U Hyaline Cast (Auto) 10-30 H (0-5) /lpf U Epithel Cells (Auto) >30 H (0-5) /lpf Urine Bacteria (Auto) Negative (Negative) Administered Medications Discontinued Medications Sodium Chloride (Nss) 2,000 mls @ 999 mls/hr IV .Q2H1M ONE Stop: 04/24/23 11:40 Last Admin: 04/24/23 10:12 Dose: 999 mls/hr Documented By: KAMILA Pantoprazole Sodium 40 mg/ (Syringe) 10 mls @ 5 mls/min IV NOW ONE Stop: 04/24/23 12:26 Last Admin: 04/24/23 12:43 Dose: 5 mls/min Documented By: ALEXANDER Ceftriaxone Sodium (Rocephin) 2,000 mg in 50 mls @ 100 mls/hr IV NOW STA Stop: 04/24/23 13:18 Last Infusion: 04/24/23 13:37 Dose: 0 mls/hr Documented By: Admin: 04/24/23 12:59 Dose: 100 mls/hr Documented By: ALEXANDER Acetaminophen (Ofirmev) 1,000 mg in 100 mls @ 400 mls/hr IV NOW STA Stop: 04/24/23 13:31 Last Admin: 04/24/23 13:35 Dose: 400 mls/hr Documented By: ALEXANDER Ioversol (Optiray 320 100ml) 93 ml IV ONCE ONE Stop: 04/24/23 11:47 Last Admin: 04/24/23 11:46 Dose: 93 ml Documented By: TERRY Ketorolac Tromethamine (Ketorolac Tromethamine 15 Mg/Ml Vial) 15 mg IV NOW ONE Stop: 04/24/23 09:41 Last Admin: 04/24/23 10:14 Dose: 15 mg Documented By: KAMILA Metoclopramide HCl (Metoclopramide Hcl Inj 5 Mg/Ml 2 Ml Vial) 10 mg IV NOW STA Stop: 04/24/23 10:38 Last Admin: 04/24/23 11:36 Dose: 10 mg Documented By: ALEXANDER Morphine Sulfate (Morphine Sulfate 10 Mg/Ml Carp/Vial) 6 mg IV NOW STA Stop: 04/24/23 11:38 Last Admin: 04/24/23 11:57 Dose: 6 mg Documented By: ALEXANDER Ondansetron HCl (Ondansetron Inj 2 Mg/Ml 2 Ml Vial) 4 mg IV NOW STA Stop: 04/24/23 09:03 Last Admin: 04/24/23 09:19 Dose: 4 mg Documented By: ALEXANDER Ondansetron HCl (Ondansetron Inj 2 Mg/Ml 2 Ml Vial) 4 mg IV NOW STA Stop: 04/24/23 09:41 Last Admin: 04/24/23 10:14 Dose: 4 mg Documented By: KAMILA Imaging Data Radiologist's Impression: Abdomen/Pelvis CT 04/24/23 09:[address] WITH IV CONTRAST CT DOSE: 765.95 mGy.cm HISTORY: Acute left lower quadrant abdominal pain llq abd pain n/v, hxt hernia and endometritis w/ l TECHNIQUE: Multiaxial CT images of the abdomen and pelvis were performed following the IV administration of 93 cc of Optiray, A dose lowering technique was utilized adhering to the principles of ALARA. COMPARISON STUDY: 11/03/2017 FINDINGS: The lung bases. No free air. Unremarkable spleen, pancreas and adrenal glands. There is suggestion of fundal adenomyomatosis of the gallbladder. Indeterminate 10 mm enhancing focus in the inferior right hepatic lobe on image 28 series 2 may represent a lesion versus vascular shunting. Patent portal vein. Unremarkable kidneys. No hydronephrosis. There is moderate central thickening and enhancement of the right renal collecting system and ureter. The compressed area bladder with mild wall thickening. Hysterectomy. No abdominal aortic aneurysm or lymphadenopathy. There is suggestion of a 1.3 cm greater curvature gastric ulcer within the mid gastric body, seen best on the sagittal images measuring approximately 1.3 cm. There is associated gastric wall thickening with adjacent inflammatory stranding seen on axial image 81 series 3. No bowel obs truction or bowel wall thickening. The appendix is not visualized. No acute fracture. IMPRESSION: 1. Probable gastric ulcer with adjacent gastric wall thickening and mild perigastric inflammation. GI consultation recommended. 2. No bowel obstruction or pneumoperitoneum. 3. Mild urothelial thickening and enhancement of the right renal collecting system. Correlate with urinalysis to exclude infection. ACT 112: Negative or not required by law. The above report was generated using voice recognition software. It may contain grammatical, syntax or spelling errors. Electronically signed by: Rakesh Alvarado M.D. 04/24/2023 12:10 PM Discharge Plan Visit Data Chief Complaint: Vomiting Stated Complaint: vomiting, severe abd pain ED Provider: Michael Gould Discharge Problem: Abdominal pain, Gastric ulcer, Gastritis, Hematemesis Forms Stand Alone Forms: [facility] Prescriptions Prescriptions: No Action ondansetron 4 mg tablet,disintegrating 4 mg PO TID PRN (Reason: nausea and vomiting) Qty: 30 1RF Ubrelvy 100 mg tablet 100 mg PO ONCE 30 Days Qty: 10 2RF Rx Instructions: Take 1 tablet at first sign of a migraine. May repeat dose after 2 hours if pain persists. No more than 200mg/24 hours. multivitamin Tablet 1 tab PO DAILY melatonin 10 mg capsule 10 mg PO HS PRN (Reason: Sleep) Botox 200 unit recon soln See Rx Instructions IM .COMPLEX Qty: 1 3RF Rx Instructions: 155 UNITS IM IN THE FACE AND NECK MUSCLES EVERY 12 WEEKS PER MIGRAINE PROTOCOL Referrals Referrals: Leonardo Bella MD [Primary Care Provider] -
[2023-04-24] MEDS ORDERED: METOCLOPRAMIDE HCL INJ 5 MG/ML 2 ML VIAL IV STA (10:37)
[2023-04-24 11:33] LABS: Albumin Globulin Ratio 1.4 (0.9-2); Albumin Level 4.5 gm/dl (3.4-5.0); BUN Creatinine Ratio 16.3 (10-20); Bilirubin,Total 0.5 mg/dl (0.2-1.0); Calcium 9.8 mg/dl (8.6-10.3); Creatinine Clr Calc Pharmacy 79.9 ml/min; Est GFR (African American) 103.2 ml/min; Globulin 3.2 gm/dl (2.5-4.0); Total Protein 7.7 gm/dl (6.0-8.3)
[2023-04-24] MEDS ORDERED: MoRPHine SULFATE 10 MG/ML CARP/VIAL IV STA (11:37)
[2023-04-24] MEDS ORDERED: OPTIRAY 320 100ml IV ONE (11:46)
[2023-04-24 12:02] LABS: Appearance Urine Clear (Clear); Bacteria Urine Automated Negative (Negative); Bilirubin Urine Negative (Negative); Blood Urine Negative (Negative); Color Urine Dark Yellow; Epithelial Cell Urine Auto >30 /lpf (0-5); Glucose Urine UA Negative (Negative); Ketones Urine 1+ (Negative); Leukocyte Esterase Urine Trace (Negative); Nitrite Urine Positive (Negative); Protein Urine 1+ (Negative); RBC Urine Automated 0-4 /hpf (0-4); Specific Gravity Urine 1.022 (1.000-1.030); Urobilinogen Urine Negative (Negative)
--- NOTE | 2023-04-24 12:11 | CT Scan Report ---
ABDOMEN AND PELVIS CT WITH IV CONTRAST CT DOSE: 765.95 mGy.cm HISTORY: Acute left lower quadrant abdominal pain llq abd pain n/v, hxt hernia and endometritis w/ l TECHNIQUE: Multiaxial CT images of the abdomen and pelvis were performed following the IV administrat ion of 93 cc of Optiray, A dose lowering technique was utilized adhering to the principles of ALARA. COMPARISON STUDY: 11/03/2017 FINDINGS: The lung bases. No free air. Unremarkable spleen, pancreas and adrenal glands. There is sug gestion of fundal adenomyomatosis of the gallbladder. Indeterminate 10 mm enhancing focus in the infe rior right hepatic lobe on image 28 series 2 may represent a lesion versus vascular shunting. Patent portal vein. Unremarkable kidneys. No hydronephrosis. There is moderate central thickening and enhancement of the right renal collecting system and ureter. The compressed area bladder with mild wall thickening. Hyst erectomy. No abdominal aortic aneurysm or lymphadenopathy. There is suggestion of a 1.3 cm greater cu rvature gastric ulcer within the mid gastric body, seen best on the sagittal images measuring approxi mately 1.3 cm. There is associated gastric wall thickening with adjacent inflammatory stranding seen on axial image 81 series 3. No bowel obstruction or bowel wall thickening. The appendix is not visual ized. No acute fracture. IMPRESSION: 1. Probable gastric ulcer with adjacent gastric wall thickening and mild perigastric inflammation. GI consultation recommended. 2. No bowel obstruction or pneumoperitoneum. 3. Mild urothelial thickening and enhancement of the right renal collecting system. Correlate with ur inalysis to exclude infection. ACT 112: Negative or not required by law. The above report was generated using voice recognition software. It may contain grammatical, syntax o r spelling errors. Electronically signed by: Rakesh Alvarado M.D. 04/24/2023 12:10 PM
[2023-04-24] MEDS ORDERED: PANTOprazole 40 MG in SYRINGE 0 ML IV ONE (12:25)
[2023-04-24] MEDS ORDERED: cefTRIAXone SODIUM 2,000 MG/50 ML BAG IV STA (12:49)
[2023-04-24] MEDS ORDERED: PANTOPRAZOLE BOLUS/DRIP IV STA (13:17)
[2023-04-24] MEDS ORDERED: ACETAMINOPHEN 1,000 MG/100 ML VIAL IV STA (13:17)
[2023-04-24] MEDS ORDERED: PANTOprazole 80 MG in DEXTROSE 5% 100 ML IV ONE (13:17)
--- NOTE | 2023-04-24 13:43 | History & Physical Report ---
Date of Service April 24, 2023 Assessment & Plan (1) Gastric ulcer: Plan: -Admit to med/tele -Currently stable -Presented to the ED with vomiting, LLQ abd pain, and urinary symptoms, CT of the abd/pelvis w/IV con shows possible gastric ulcer without perforation -Given 40 mg IV pantoprazole in the ED -GI was consulted, appreciate their help, recommends NPO, Protonix drip, they will evaluate for EGD while admitted -Spoke to GI regarding starting treatment for possible H. Pylori on admission, they want to wait until biopsies are obtained during EGD -Patient was not on outpatient therapy for previous gastric ulcers, has not been using NSAID's, consistent alcohol, or tobacco -NPO for now -Not on outpatient anticoagulation -Will give light IV hydration while NPO -Order placed for 2 large bore IV's -Hgb is stable, will obtain type and screen and monitor CBC Q6H for now -Pain control with IV Tylenol and morphine; prn compazine for nausea/vomiting as zofran made symptoms worse -BL SCD's for DVT PPX; hold chemical PPX with recent maroon emesis -AM CBC, CMP, Mag, PT/INR (2) Pyelonephritis: Plan: -Has been having urinary symptoms since 04/19 -Did complete 3 days of Ciprofloxacin starting 04/20 by her PCP -UA still looks infected today, + left CVA tenderness with CT findings of urothelial thickening and enhancement -No previous hx of resistant organisms -S/P one dose of Ceftriaxone in the ED, will continue with Ceftriaxone for now -Will obtain urine and blood cultures; unfortunately she received a dose of Ceftriaxone in the ED prior to collection -Follow culture results Admission and Anticipated Discharge Date Admission Date: The patient was discussed with Dr. Loo at the time of the admission History of Present Illness Chief Complaint: ABD pain, nausea, urinary symptoms Primary Care Provider: Leonardo Bella MD Rosalba is a 47 year old female with a PMH significant for chronic migraines, anxiety, and depression who presented to the [facility] ED on 04/24 with complaints of vomiting, LLQ abdominal pain, and urinary symptoms. She remained stable in the ED. Labs were significant for a CBC with WBC WNL but hem-concent rated, CMP WNL, and UA consistent with UTI. CT of the abd/pelvis w/IV con was read as 1. Probable gastric ulcer with adjacent gastric wall thickening and mild perigastric inflammation. GI consultation recommended. 2. No bowel obstruction or pneumoperitoneum. 3. Mild urothelial thickening and enhancement of the right renal collecting system. Correlate with urinalysis to exclude infection. Prior to admission the patient was given 15 mg IV toradol. 10 mg IV reglan, 8 mg IV Zofran, 6 mg IV morphine, 40 mg IV pantoprazole, 2L NSS bolus, and a dose of Ceftriaxone. At the time of the exam the patient was sitting in bed in no acute distress with her sitting bedside. She states that she first started to develop urinary symptoms such as dysuria and increased urinary frequency on 04/19. She was prescribed a 3 day course of Ciprofloxacin by here PCP on 04/20 and confirms she completed the course. Over the weekend the patient began to experience LLQ abdominal pain with recurrent nausea and vomiting. The abdominal pain has stayed in the LLQ and has not radiated. She and her state that she has had 3 episodes of maroon colored emesis today, they deny seeing blood clots or bright red blood in her emesis. When asked, she has a long history of refulx and was previously admitted to [facility] in 2018 due to acute blood loss anemia from a gastric ulcer. She states that she received 2 units of PRBC's during that admission. She states she underwent EGD during that admission which revealed moderately severe esophagitis and two non-obstructing, oozing centered gastric ulcers without signs of perforation. She underwent successful epinephrine injection for hemostasis. Biopsies were positive for H. Pylori, the patient was treated with Pepto-bismol, protonix, Doxycycline, and flagyl. She denies recent fever, chills, chest pain, bright red emesis, hematuria, diarrhea, blood stool/melena, and recent trauma. When asked, she no longer uses NSAID's since her last upper GI bleed, she does not use alcohol consistently, and does not use tobacco products. She does get reflux symptoms frequency which are exacerbated when eating spicy food. She has not had anything to eat or drink today. Please refer to Dr. Loo's attestation for any changes to the treatment plan Allergies Allergy/AdvReac Type Severity Reaction Status Date / Time Sulfa (Sulfonamide Allergy Mild vomit/diarh Verified 10/26/22 15:06 Antibiotics) ea sulfamethoxazole Allergy Mild vomit/diarh Verified 10/26/22 15:06 ea trimethoprim Allergy Mild vomit/diarh Verified 10/26/22 15:06 ea Penicillins Allergy Unknown hives Verified 10/26/22 15:06 latex AdvReac Intermediate LOCAL Verified 10/26/22 15:06 RASH, ITCHINESS clarithromycin AdvReac Mild vomit Verified 10/26/22 15:06 prochlorperazine AdvReac Mild seizure Verified 10/26/22 15:06 amoxicillin AdvReac Verified 10/26/22 15:06 eletriptan [From Relpax] AdvReac made head Verified 10/26/22 15:06 feel "fuzzy", had blurry vision and didn't help zolmitriptan [From Zomig] AdvReac made head Verified 10/26/22 15:06 feel "fuzzy", had blurry vision and didn't help Home Medications Medication Instructions Recorded Confirmed Type multivitamin 1 tab PO DAILY 03/13/20 04/24/23 History melatonin 10 mg capsule 10 mg PO HS PRN Sleep 02/19/21 04/24/23 History onabotulinumtoxinA 200 unit See Rx Instructions IM .COMPLEX #1 08/11/22 04/24/23 Rx solution for injection (Botox) ea ondansetron 4 mg disintegrating 4 mg PO TID PRN nausea and 10/13/22 04/24/23 Rx tablet vomiting #30 tabs ubrogepant 100 mg tablet (Ubrelvy) 100 mg PO ONCE 30 days #10 tabs 02/01/23 04/24/23 Rx Past Med/Surg History Medical History (Updated 04/24/23 @ 13:53 by Ildefonso Lloyd PA-C) Encounter for gynecological examination Endometriosis Fibromyalgia Gastroenteritis H. pylori infection Migraine with aura and without status migrainosus, not intractable Nausea, vomiting, and diarrhea Nonvenomous insect bite Surgical History H/O dilation and curettage (2002) Previous section (2005) x 2 S/P laparoscopic surgery Family History Grandfather (Maternal) Myocardial infarction Grandfather (Paternal) Myocardial infarction Denies family history of Ovarian cancer Prostate cancer Breast cancer Colorectal cancer Social History Smoking Status: Former smoker Tobacco Type: Cigarettes Second Hand Exposure: No; Do You Dip or Chew Tobacco: No; Hx Alcohol Use: Yes (Occasionally ) Hx Substance Use: No Visual Impairment: No Limitations Hearing Ability: Normal marital status: Current Living Situation: Family current occupational status: employed 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 - [employer] Feels Safe at Home: Yes Dental Care, Regularly: Yes Physical Activity Frequency: 1-2 Times per Week Seatbelt Use: always Sunscreen Use: Yes Physical Exam Physical Exam: Physical Exam: General: In no acute distress, stated age, well-nourished, ill but non-toxic appearing HEENT: Normocephalic, atraumatic, no scleral icterus, pupils around round, symmetrical, and reactive to light, dry mucus membranes, trachea midline, no thyromegaly Chest/Pulm: No respiratory distress, symmetrical chest expansion, clear breath sounds throughout Cardiac: RRR, no murmurs noted Abdomen: Negative for ascites and bruising, hypoactive bowel sounds, soft, tender 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 in the epigastric and LLQ without rebound tenderness : Positive left CVA tenderness; negative right CVA tenderness Musculoskeletal: Symmetrical and without signs of acute trauma, upper and lower extremities with full ROM, no atrophy, spasticity, or flaccidity Extremities: Radial, dorsalis pedis, and posterior tibial pulses are intact and symmetrical, no edema noted in the BL LE's Skin: Warm, dry, no rashes , lesions, or scars noted Neuro: Alert and oriented to person, place, month, year, and president, no focal defects, no tremors noted Psych: No acute distress, calm and cooperative during the exam Results & Data Results & Data Vital Signs (Past 12 Hours) Vital Signs Temp Pulse Pulse Resp BP BP Pulse Ox 04/24/23 11:28 96 H 20 106/86 96 04/24/23 08:59 36.0 C L 114 H 16 178/93 H 98 O2 Del Method 04/24/23 11:28 Room Air 04/24/23 08:59 Room Air Laboratory Results Abnormal lab results 04/24/23 04/24/23 04/24/23 Range/Units 09:16 10:09 11:42 RBC 6.33 H (4.20-5.40) M/uL Hgb 16.2 H (12.0-16.0) g/dl Hct 50.7 H (37.0-47.0) % RDW Coeff of Miladys 15.8 H (11.5-14.5) % Plt Count 422 H (130-400) K/uL Neut # (Auto) 7.38 H (1.40-6.50) K/uL Glucose 140 H (70-99(Fasting)) mg/dl Alkaline Phosphatase 129 H (34-104) U/L Lipase 5 L (11-82) U/L Urine Protein 1+ H (Negative) Urine Ketones 1+ H (Negative) Urine Nitrite Positive A (Negative) Ur Leukocyte Esterase Trace H (Negative) U Hyaline Cast (Auto) 10-30 H (0-5) /lpf U Epithel Cells (Auto) >30 H (0-5) /lpf Diagnostic Findings Abdomen/Pelvis CT 04/24/23 09:[address] WITH IV CONTRAST CT DOSE: 765.95 mGy.cm HISTORY: Acute left lower quadrant abdominal pain llq abd pain n/v, hxt hernia and endometritis w/ l TECHNIQUE: Multiaxial CT images of the abdomen and pelvis were performed following the IV administration of 93 cc of Optiray, A dose lowering technique was utilized adhering to the principles of ALARA. COMPARISON STUDY: 11/03/2017 FINDINGS: The lung bases. No free air. Unremarkable spleen, pancreas and adrenal glands. There is suggestion of fundal adenomyomatosis of the gallbladder. Indeterminate 10 mm enhancing focus in the inferior right hepatic lobe on image 28 series 2 may represent a lesion versus vascular shunting. Patent portal vein. Unremarkable kidneys. No hydronephrosis. There is moderate central thickening and enhancement of the right renal collecting system and ureter. The compressed area bladder with mild wall thickening. Hysterectomy. No abdominal aortic aneurysm or lymphadenopathy. There is suggestion of a 1.3 cm greater curvature gastric ulcer within the mid gastric body, seen best on the sagittal images m easuring approximately 1.3 cm. There is associated gastric wall thickening with adjacent inflammatory stranding seen on axial image 81 series 3. No bowel obstruction or bowel wall thickening. The appendix is not visualized. No acute fracture. IMPRESSION: 1. Probable gastric ulcer with adjacent gastric wall thickening and mild perigastric inflammation. GI consultation recommended. 2. No bowel obstruction or pneumoperitoneum. 3. Mild urothelial thickening and enhancement of the right renal collecting system. Correlate with urinalysis to exclude infection. ACT 112: Negative or not required by law. The above report was generated using voice recognition software. It may contain grammatical, syntax or spelling errors. Electronically signed by: Rakesh Alvarado M.D. 04/24/2023 12:10 PM ECG Additional Comments: Will obtain on admission Code Status & VTE Plan Code Status Full code VTE Prophylaxis Plan VTE Prophylaxis will be ordered: Yes Supervising Physician Co-Signing Physician Notes Patient seen and examined, chart reviewed, case discussed with Ildefonso Lloyd PA-C and I agree with the assessment and plan as above except as otherwise noted Labs and images reviewed Urinary sx began last /. Completed a 3 day course of cipro. LLQ and epigastric pain then began over the weekend, and she had had maroon emesis in the last 24 hours. Tylenol does not help epigastric pian. no longer uses NSAIDs due to prior gastric ulcer in 2018. No tobacco/etoh use. Remains with dysuria in addition to epigastric discomfort. Does have hx of h. pylori treated with doxy/flagyl due to PCN allergy. At bedside +TTP in epigastrum, symmetrical chest rise, RRR. Gastroenterology consulted for UGIB and gastric ulcer. NPO. Protonix gtt recommended. Hgb 16, concentrated. Hgb trended. Followed on med tele UTI: remains symptomatic. UC pending. Continue rocephin. PG Care Time/CCT Total # of Minutes Spent Total Time Spent with Patient: Total time spent is greater than 50% in coordination of care (as documented) at patient's floor/unit and/or counseling patient: [place] [address] INT INP/OBS CARE 2/55MIN Patient Type Established History Comprehensive Exam Comprehensive Medical Decision Making Moderate Complexity Diagnoses Gastric ulcer K25.9 Pyelonephritis N12
[2023-04-24] MEDS ORDERED: ACETAMINOPHEN 1,000 MG/100 ML VIAL IV PRN (13:48)
[2023-04-24] MEDS ORDERED: PROCHLORPERAZINE 5 MG in SYRINGE 4 ML IV PRN (13:54)
[2023-04-24] MEDS: PLASMA-LYTE A 1,000 ML IV SCH (14:09)
[2023-04-24] MEDS: PANTOprazole 40 MG in DEXTROSE 5% MINI-B 100 ML IV SCH ×2 (14:47→19:32)
[2023-04-24] MEDS: MoRPHine SULFATE 2 MG/ML CARP IV PRN ×2 (15:46→19:33)
[2023-04-24 16:12] LABS: Basophils # (auto) 0.03 K/uL (0.00-0.20); Basophils % (auto) 0.3 %; Eosinophils # (auto) 0.01 K/uL (0.00-0.50); Eosinophils % (auto) 0.1 %; Hematocrit (blood only) 43.1 % (37.0-47.0); Hemoglobin 14.4 g/dl (12.0-16.0); Immature Granulocytes # (auto) 0.01 K/uL (0.01-0.20); Immature Granulocytes % (auto) 0.1 %; Lymphocytes # (auto) 1.25 K/uL (1.20-3.40); Lymphocytes % (auto) 12.2 %; Mean Corpuscular Hemoglobin 25.9 pg (25.0-34.0); Mean Corpuscular Hgb Conc 33.4 g/dL (32.0-36.0); Mean Corpuscular Volume 77.5 fL (80.0-100.0); Mean Platelet Volume 9.4 fL (9.4-12.4); Monocytes # (auto) 0.43 K/uL (0.11-0.59); Monocytes % (auto) 4.2 %; Neutrophils # (auto) 8.55 K/uL (1.40-6.50); Neutrophils % (auto) 83.1 %; Platelet Count 362 K/uL (130-400); RDW Standard Deviation 36.7 fL (36.4-46.3); Red Blood Count 5.56 M/uL (4.20-5.40); White Blood Count 10.28 K/ul (4.8-10.8)
[2023-04-24] MEDS: METOCLOPRAMIDE HCL 5 MG TABLET PO PRN (19:51)
[2023-04-24 23:18] LABS: Basophils # (auto) 0.04 K/uL (0.00-0.20); Basophils % (auto) 0.4 %; Hematocrit (blood only) 42.4 % (37.0-47.0); Hemoglobin 13.8 g/dl (12.0-16.0); Immature Granulocytes # (auto) 0.03 K/uL (0.01-0.20); Immature Granulocytes % (auto) 0.3 %; Lymphocytes # (auto) 2.32 K/uL (1.20-3.40); Mean Corpuscular Hemoglobin 25.5 pg (25.0-34.0); Mean Corpuscular Hgb Conc 32.5 g/dL (32.0-36.0); Mean Corpuscular Volume 78.4 fL (80.0-100.0); Mean Platelet Volume 9.4 fL (9.4-12.4); Monocytes # (auto) 0.79 K/uL (0.11-0.59); Monocytes % (auto) 8.2 %; Neutrophils # (auto) 6.39 K/uL (1.40-6.50); Neutrophils % (auto) 66.1 %; Platelet Count 366 K/uL (130-400); RDW Coefficient of Variation 13.2 % (11.5-14.5); RDW Standard Deviation 37.5 fL (36.4-46.3); Red Blood Count 5.41 M/uL (4.20-5.40); White Blood Count 9.67 K/ul (4.8-10.8)
[2023-04-25] MEDS: MoRPHine SULFATE 2 MG/ML CARP IV PRN ×4 (00:26→13:48)
[2023-04-25] MEDS: PANTOprazole 40 MG in DEXTROSE 5% MINI-B 100 ML IV SCH ×4 (01:56→17:12)
[2023-04-25 04:26] LABS: Albumin Globulin Ratio 1.2 (0.9-2); Albumin Level 3.7 gm/dl (3.4-5.0); BUN Creatinine Ratio 18.4 (10-20); Bilirubin,Total 0.5 mg/dl (0.2-1.0); Calcium 9.1 mg/dl (8.6-10.3); Creatinine Clr Calc Pharmacy 84.1 ml/min; Est GFR (African American) 109.8 ml/min; Est GFR (Non-African American) 94.7 ml/min; Magnesium 1.9 mg/dl (1.7-2.4); Potassium 3.8 mmol/L (3.5-5.1); Total Protein 6.7 gm/dl (6.0-8.3)
[2023-04-25 04:30] LABS: Basophils # (auto) 0.03 K/uL (0.00-0.20); Basophils % (auto) 0.4 %; Eosinophils # (auto) 0.13 K/uL (0.00-0.50); Eosinophils % (auto) 1.6 %; Hematocrit (blood only) 41.9 % (37.0-47.0); Hemoglobin 13.2 g/dl (12.0-16.0); Immature Granulocytes # (auto) 0.02 K/uL (0.01-0.20); Immature Granulocytes % (auto) 0.2 %; Lymphocytes # (auto) 2.05 K/uL (1.20-3.40); Lymphocytes % (auto) 25.3 %; Mean Corpuscular Hemoglobin 25.2 pg (25.0-34.0); Mean Corpuscular Hgb Conc 31.5 g/dL (32.0-36.0); Mean Corpuscular Volume 80.1 fL (80.0-100.0); Mean Platelet Volume 9.5 fL (9.4-12.4); Monocytes % (auto) 8.6 %; Neutrophils # (auto) 5.18 K/uL (1.40-6.50); Neutrophils % (auto) 63.9 %; Platelet Count 340 K/uL (130-400); RDW Coefficient of Variation 13.2 % (11.5-14.5); RDW Standard Deviation 37.6 fL (36.4-46.3); Red Blood Count 5.23 M/uL (4.20-5.40); White Blood Count 8.11 K/ul (4.8-10.8)
[2023-04-25 04:33] LABS: Prothrombin Time 11.4 Seconds (9.0-12.0)
[2023-04-25] MEDS: PLASMA-LYTE A 1,000 ML IV SCH ×2 (05:57→15:23)
[2023-04-25 08:06] LABS: Basophils # (auto) 0.03 K/uL (0.00-0.20); Basophils % (auto) 0.4 %; Eosinophils # (auto) 0.13 K/uL (0.00-0.50); Eosinophils % (auto) 1.8 %; Hemoglobin 13.8 g/dl (12.0-16.0); Immature Granulocytes # (auto) 0.02 K/uL (0.01-0.20); Immature Granulocytes % (auto) 0.3 %; Lymphocytes # (auto) 1.68 K/uL (1.20-3.40); Lymphocytes % (auto) 23.7 %; Mean Corpuscular Hemoglobin 25.7 pg (25.0-34.0); Mean Corpuscular Hgb Conc 32.1 g/dL (32.0-36.0); Mean Corpuscular Volume 79.9 fL (80.0-100.0); Mean Platelet Volume 9.3 fL (9.4-12.4); Monocytes # (auto) 0.59 K/uL (0.11-0.59); Monocytes % (auto) 8.3 %; Neutrophils # (auto) 4.64 K/uL (1.40-6.50); Neutrophils % (auto) 65.5 %; Platelet Count 322 K/uL (130-400); RDW Coefficient of Variation 13.2 % (11.5-14.5); RDW Standard Deviation 37.9 fL (36.4-46.3); Red Blood Count 5.38 M/uL (4.20-5.40); White Blood Count 7.09 K/ul (4.8-10.8)
--- NOTE | 2023-04-25 08:14 | Hospitalist Progress Note ---
Date of Service April 25, 2023 Assessment & Plan (1) Gastric ulcer: Plan: Presented to the ED with vomiting, LLQ abd pain, and urinary symptoms, CT of the abd/pelvis w/IV con shows possible gastric ulcer without perforation EGD shows LA grade B reflux esophagitis no bleeding no bleeding gastric ulcer with no stigmata of bleeding biopsied normal duodenal bulb recommendation for 8 weeks of twice daily Protonix and follow-up with outpatient GI for repeat endoscopy - we will advance diet patient is still too sleepy to safely have diet to regular we will see if she advances overnight likely go home in a.m. of 04/26 -Pain control with IV Tylenol and morphine; prn compazine for nausea/vomiting as zofran made symptoms worse -BL SCD's for DVT PPX; hold chemical PPX with recent maroon emesis - (2) Pyelonephritis: Plan: -Has been having urinary symptoms since 04/19 -Did complete 3 days of Ciprofloxacin starting 04/20 by her PCP -UA still looks infected today, + left CVA tenderness with CT findings of urothelial thickening and enhancement -No previous hx of resistant organisms - Ceftriaxone urine cultures with less than 1000 colonies blood cultures are negative to date Admission and Anticipated Discharge Date Admission Date: April 24, 2023 Subjective patient seen in company of her significant other. She is still recovering from the anesthesia of her EGD. Erosive esophagitis and clean-based gastric ulcer were also seen biopsies taken and pending at this time Physical Exam Physical Exam: patient is with NABS mild discomfort in the epigastrium and left lower quadrant Results & Data Results & Data Vital Signs (Past 12 Hours) Vital Signs Temp Pulse Resp BP Pulse Ox O2 Del Method 04/25/23 07:38 98.1 F 67 16 124/80 95 Room Air 04/25/23 04:33 97.9 F 70 18 113/72 93 Room Air 04/24/23 22:35 98.6 F 84 12 115/72 93 Room Air Laboratory Results to prednisone therapy PG Care Time/CCT Total # of Minutes Spent Total Time Spent with Patient: Total time spent is greater than 50% in coordination of care (as documented) at patient's floor/unit and/or counseling patient: Coding Level of Care Code 64847 SUB INP/OBS CARE 2/35MIN Diagnoses Gastric ulcer K25.9 Pyelonephritis N12
--- NOTE | 2023-04-25 08:48 | Anesthesiology Consultation ---
Date of Service April 25, 2023 Assessment & Plan Chart Review Chart Review: manager entry initiated History Surgery Operation Date: 04/25/23 16:30 Proposed Procedures p Esophagogastroduodenoscopy Dr. Maryellen Bojorquez MD Height/Weight Height: 5 ft 5 in Weight: 67 kg Allergies Allergy/AdvReac Type Severity Reaction Status Date / Time Sulfa (Sulfonamide Allergy Mild vomit/diarh Verified 10/26/22 15:06 Antibiotics) ea sulfamethoxazole Allergy Mild vomit/diarh Verified 10/26/22 15:06 ea trimethoprim Allergy Mild vomit/diarh Verified 10/26/22 15:06 ea Penicillins Allergy Unknown hives Verified 10/26/22 15:06 latex AdvReac Intermediate LOCAL Verified 10/26/22 15:06 RASH, ITCHINESS clarithromycin AdvReac Mild vomit Verified 10/26/22 15:06 prochlorperazine AdvReac Mild seizure Verified 10/26/22 15:06 amoxicillin AdvReac Verified 10/26/22 15:06 eletriptan [From Relpax] AdvReac made head Verified 10/26/22 15:06 feel "fuzzy", had blurry vision and didn't help zolmitriptan [From Zomig] AdvReac made head Verified 10/26/22 15:06 feel "fuzzy", had blurry vision and didn't help Medications Home Medications Medication Instructions Recorded Confirmed Last Taken multivitamin 1 tab PO DAILY 03/13/20 04/24/23 Unknown melatonin 10 mg capsule 10 mg PO HS PRN Sleep 02/19/21 04/24/23 Unknown onabotulinumtoxinA 200 unit See Rx Instructions IM .COMPLEX #1 08/11/22 04/24/23 Unknown solution for injection (Botox) ea ondansetron 4 mg disintegrating 4 mg PO TID PRN nausea and 10/13/22 04/24/23 Unknown tablet vomiting #30 tabs ubrogepant 100 mg tablet (Ubrelvy) 100 mg PO ONCE 30 days #10 tabs 02/01/23 04/24/23 Unknown Active Medications Generic Name Dose Route Start Last Admin Trade Name Freq PRN Reason Stop Dose Admin Pantoprazole Sodium 40 mg/ 100 mls @ 20 mls/hr 04/24/23 13:45 04/25/23 01:56 Dextrose IV 05/24/23 13:44 8 mg/hr Q5H LINDA 20 mls/hr Administration 8 MG/HR Parenteral Electrolytes 1,000 mls @ 100 mls/hr 04/24/23 14:00 04/25/23 05:57 Plasma-Lyte A Ph 7.4 IV 05/24/23 13:59 100 mls/hr .Q10H LINDA Administration Acetaminophen 1,000 mg in 100 mls @ 400 mls/hr 04/24/23 13:48 04/25/23 00:26 Ofirmev IV 04/27/23 13:47 Infused Q8H PRN Infusion pain (1-4) or fever Metoclopramide HCl 5 mg 04/24/23 19:29 04/24/23 19:51 Metoclopramide Hcl 5 Mg Tablet PO 05/24/23 19:28 5 mg Q8H PRN Administration Nausea Morphine Sulfate 2 mg 04/24/23 13:17 04/25/23 06:15 Morphine Sulfate 2 Mg/Ml Carp IV 05/08/23 13:16 2 mg Q3H PRN Administration Pain (5+) Past Medical History Medical History Encounter for gynecological examination Endometriosis Fibromyalgia Gastroenteritis H. pylori infection Migraine with aura and without status migrainosus, not intractable Nausea, vomiting, and diarrhea Nonvenomous insect bite Past Family History Family History Grandfather (Maternal) Myocardial infarction Grandfather (Paternal) Myocardial infarction Denies family history of Ovarian cancer Prostate cancer Breast cancer Colorectal cancer Past Surgical History Surgical History H/O dilation and curettage (2002) Previous section (2005) x 2 S/P laparoscopic surgery Social History Smoking Status: Never smoker Do You Dip or Chew Tobacco: No Hx Alcohol Use: Yes Alcohol type: beer alcohol intake frequency: holidays/special occasions only Hx Substance Use: No substance use type: does not use Physical Exam Vital Signs Last Vital Signs Temp 98.1 F 04/25/23 07:38 Pulse 67 04/25/23 07:38 Resp 16 04/25/23 07:38 BP 124/80 04/25/23 07:38 Pulse Ox 95 04/25/23 07:38 O2 Del Method Room Air 04/25/23 07:38 Testing Laboratory Results 04/25/23 07:34 04/25/23 03:52 PT 11.4 Seconds (9.0-12.0) 04/25/23 03:52 INR 1.0 (0.9-1.1) 04/25/23 03:52 Urine Color Dark Yellow 04/24/23 11:42 Urine Appearance Clear (Clear) 04/24/23 11:42 Urine pH 7.0 (4.5-7.5) 04/24/23 11:42 Ur Specific [place] 1.022 (1.000-1.030) 04/24/23 11:42 Urine Protein 1+ (Negative) H 04/24/23 11:42 Urine Glucose (UA) Negative (Negative) 04/24/23 11:42 Urine Ketones 1+ (Negative) H 04/24/23 11:42 Urine Nitrite Positive (Negative) A 04/24/23 11:42 Ur Leukocyte Esterase Trace (Negative) H 04/24/23 11:42 Urine WBC (Auto) 1-5 /hpf (0-5) 04/24/23 11:42 Urine RBC (Auto) 0-4 /hpf (0-4) 04/24/23 11:42 U Hyaline Cast (Auto) 10-30 /lpf (0-5) H 04/24/23 11:42 U Epithel Cells (Auto) >30 /lpf (0-5) H 04/24/23 11:42 Urine Bacteria (Auto) Negative (Negative) 04/24/23 11:42 Blood Type O Negative 04/24/23 14:20 Antibody Screen NEGATIVE 04/24/23 14:20
--- NOTE | 2023-04-25 09:02 | Gastrointestinal Consultation ---
Date of Consultation April 25, 2023 Assessment & Plan (1) Left upper quadrant pain: (2) Abnormal CT of the abdomen: Plan Patient is a 47 y.o. female with a history of H pylori-associated PUD admitted with severe LUQ pain, n/v and findings of probable gastric ulcer on CT a/p. -NPO for now. -Continue Protonix ggt at 8 mg/hr. -EGD with Dr. Bojorquez today for further evaluation. -Supportive care per primary team. -Further recommendations pending results of testing. Thank you for allowing us to participate in the care of this patient. If you have any questions or concerns, please do not hesitate to contact us. Supervising Physician Co-Signing Physician Notes I saw the patient and agree with the findings as documented by MAURICIO Gan History of Present Illness Reason for Consultation: Probable gastric ulcer Requesting Physician: Ildefonso Lloyd PA-C Attending Physician: Alon Bettencourt MD History of Present Illness Patient is a 47 y.o. female with a history of H pylori-associated gastric ulcer diagnosed via EGD by Dr. Blanchard in 2017. She was successfully treated at that time with antibiotics and PPI therapy and reports she did have a follow up E[place] [facility] which demonstrated ulcer healing and clearance of the infection. States she was in her usual state of health until April 21. At that time, she developed a sudden onset of abdominal pain with associated nausea and vomiting while at work. Her symptoms persisted throughout the weekend and were associated with passage of several dark stools. She presented to the ER yesterday due to persistent pain. She describes the pain as very sharp in the left upper quadrant. The last episode of vomiting was yesterday morning. No further melena. She is hemodynamically stable. CT a/p with demonstrated of gastric wall thickening and concerning for a recurrence of a gastric ulcer. She has been made NPO and started on a PPI ggt. She has a pending EGD with Dr. Bojorquez today. Denies any current NSAID use. Rare ETOH. Allergies Allergy/AdvReac Type Severity Reaction Status Date / Time Sulfa (Sulfonamide Allergy Mild vomit/diarh Verified 10/26/22 15:06 Antibiotics) ea sulfamethoxazole Allergy Mild vomit/diarh Verified 10/26/22 15:06 ea trimethoprim Allergy Mild vomit/diarh Verified 10/26/22 15:06 ea Penicillins Allergy Unknown hives Verified 10/26/22 15:06 latex AdvReac Intermediate LOCAL Verified 10/26/22 15:06 RASH, ITCHINESS clarithromycin AdvReac Mild vomit Verified 10/26/22 15:06 prochlorperazine AdvReac Mild seizure Verified 10/26/22 15:06 amoxicillin AdvReac Verified 10/26/22 15:06 eletriptan [From Relpax] AdvReac made head Verified 10/26/22 15:06 feel "fuzzy", had blurry vision and didn't help zolmitriptan [From Zomig] AdvReac made head Verified 10/26/22 15:06 feel "fuzzy", had blurry vision and didn't help Home Medications Medication Instructions Recorded Confirmed Type multivitamin 1 tab PO DAILY 03/13/20 04/24/23 History melatonin 10 mg capsule 10 mg PO HS PRN Sleep 02/19/21 04/24/23 History onabotulinumtoxinA 200 unit See Rx Instructions IM .COMPLEX #1 08/11/22 04/24/23 Rx solution for injection (Botox) ea ondansetron 4 mg disintegrating 4 mg PO TID PRN nausea and 10/13/22 04/24/23 Rx tablet vomiting #30 tabs ubrogepant 100 mg tablet (Ubrelvy) 100 mg PO ONCE 30 days #10 tabs 02/01/23 04/24/23 Rx Patient History Medical History (Updated 04/25/23 @ 09:00 by MAURICIO Roman) Encounter for gynecological examination Endometriosis Fibromyalgia Gastroenteritis H. pylori infection Migraine with aura and without status migrainosus, not intractable Nausea, vomiting, and diarrhea Nonvenomous insect bite Surgical History H/O dilation and curettage (2002) Previous section (2005) x 2 S/P laparoscopic surgery Family History Grandfather (Maternal) Myocardial infarction Grandfather (Paternal) Myocardial infarction Denies family history of Ovarian cancer Prostate cancer Breast cancer Colorectal cancer Social History Smoking Status: Never smoker Tobacco Type: Cigarettes Second Hand Exposure: No; Do You Dip or Chew Tobacco: No; Hx Alcohol Use: Yes Alcohol type: beer Hx Substance Use: No Preferred Language: Yi Communication Ability: Effective Visual Impairment: No Limitations Hearing Ability: Normal Water Supervisor Required: No Beliefs That Will Affect Care: None marital status: Current Living Situation: Significant Other current occupational status: employed 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 - [employer] Feels Safe at Home: Yes Dental Care, Regularly: Yes Physical Activity Frequency: 1-2 Times per Week Seatbelt Use: always Sunscreen Use: Yes Assistive Devices: None Review of Systems Constitutional: + fatigue; no fever and no chills Respiratory: no cough and no dyspnea Cardiovascular: no chest pain and no palpitations Gastrointestinal: as per Subjective / HPI Physical Exam Constitutional: WD/WN, vitals as above Eyes: EOM intact bilaterally Neck: normal appearance Respiratory: normal respiratory effort, lungs clear to auscultation Cardiovascular: Rate/Rhythm: regular rate and regular rhythm Heart Sounds: no gallop and no murmur Gastrointestinal (Abdomen): Inspection/Auscultation: abdomen normal to inspection and normal bowel sounds; abdomen not distended Percussion/Palpation: + abdomen tender (LUQ) and abdomen soft; no guarding and abdomen not rigid Musculoskeletal: Extremities: no cyanosis no lower extremity edema Skin: no rashes, warm and dry Neurologic: moves all extremities Psychiatric: A+Ox3, euthymic affect Results & Data Vital Signs (Past 12 Hours) Vital Signs Temp Pulse Resp BP Pulse Ox O2 Del Method 04/25/23 07:38 36.7 C 67 16 124/80 95 Room Air 04/25/23 04:33 36.6 C 70 18 113/72 93 Room Air 04/24/23 22:35 37.0 C 84 12 115/72 93 Room Air Diagnostic Findings Laboratory Results WBC 7.09 K/ul (4.8-10.8) 04/25/23 07:34 RBC 5.38 M/uL (4.20-5.40) 04/25/23 07:34 Hgb 13.8 g/dl (12.0-16.0) 04/25/23 07:34 Hct 43.0 % (37.0-47.0) 04/25/23 07:34 MCV 79.9 fL (80.0-100.0) L 04/25/23 07:34 MCH 25.7 pg (25.0-34.0) 04/25/23 07:34 MCHC 32.1 g/dL (32.0-36.0) 04/25/23 07:34 RDW Std Deviation 37.9 fL (36.4-46.3) 04/25/23 07:34 RDW Coeff of Miladys 13.2 % (11.5-14.5) 04/25/23 07:34 Plt Count 322 K/uL (130-400) 04/25/23 07:34 MPV 9.3 fL (9.4-12.4) L 04/25/23 07:34 Immature Gran % (Auto) 0.3 % 04/25/23 07:34 Neut % (Auto) 65.5 % 04/25/23 07:34 Lymph % (Auto) 23.7 % 04/25/23 07:34 [place] % (Auto) 8.3 % 04/25/23 07:34 Eos % (Auto) 1.8 % 04/25/23 07:34 Baso % (Auto) 0.4 % 04/25/23 07:34 Neut # (Auto) 4.64 K/uL (1.40-6.50) 04/25/23 07:34 Lymph # (Auto) 1.68 K/uL (1.20-3.40) 04/25/23 07:34 [place] # (Auto) 0.59 K/uL (0.11-0.59) 04/25/23 07:34 Eos # (Auto) 0.13 K/uL (0.00-0.50) 04/25/23 07:34 Baso # (Auto) 0.03 K/uL (0.00-0.20) 04/25/23 07:34 Immature Gran # (Auto) 0.02 K/uL (0.01-0.20) 04/25/23 07:34 PT 11.4 Seconds (9.0-12.0) 04/25/23 03:52 INR 1.0 (0.9-1.1) 04/25/23 03:52 Sodium 137 mmol/L (136-145) 04/25/23 03:52 Potassium 3.8 mmol/L (3.5-5.1) 04/25/23 03:52 Chloride 102 mmol/L (98-107) 04/25/23 03:52 Carbon Dioxide 30 mmol/L (21-32) 04/25/23 03:52 Anion Gap 5 (3-11) 04/25/23 03:52 BUN 14 mg/dl (6-23) 04/25/23 03:52 Creatinine 0.76 mg/dl (0.6-1.2) 04/25/23 03:52 Est Cr Clr Drug Dosing 84.1 ml/min 04/25/23 03:52 Est GFR ( Amer) 109.8 ml/min 04/25/23 03:52 Est GFR (Non-Af Amer) 94.7 ml/min 04/25/23 03:52 BUN/Creatinine Ratio 18.4 (10-20) 04/25/23 03:52 Glucose 96 mg/dl (70-99(Fasting)) 04/25/23 03:52 Calcium 9.1 mg/dl (8.6-10.3) 04/25/23 03:52 Magnesium 1.9 mg/dl (1.7-2.4) 04/25/23 03:52 Total Bilirubin 0.5 mg/dl (0.2-1.0) 04/25/23 03:52 AST 14 U/L (13-39) 04/25/23 03:52 ALT 10 U/L (7-52) 04/25/23 03:52 Alkaline Phosphatase 110 U/L (34-104) H 04/25/23 03:52 Total Protein 6.7 gm/dl (6.0-8.3) 04/25/23 03:52 Albumin 3.7 gm/dl (3.4-5.0) 04/25/23 03:52 Globulin 3.0 gm/dl (2.5-4.0) 04/25/23 03:52 Albumin/Globulin Ratio 1.2 (0.9-2) 04/25/23 03:52 Lipase 5 U/L (11-82) L 04/24/23 10:09 Urine Color Dark Yellow 04/24/23 11:42 Urine Appearance Clear (Clear) 04/24/23 11:42 Urine pH 7.0 (4.5-7.5) 04/24/23 11:42 Ur Specific [place] 1.022 (1.000-1.030) 04/24/23 11:42 Urine Protein 1+ (Negative) H 04/24/23 11:42 Urine Glucose (UA) Negative (Negative) 04/24/23 11:42 Urine Ketones 1+ (Negative) H 04/24/23 11:42 Urine Blood Negative (Negative) 04/24/23 11:42 Urine Nitrite Positive (Negative) A 04/24/23 11:42 Urine Bilirubin Negative (Negative) 04/24/23 11:42 Urine Urobilinogen Negative (Negative) 04/24/23 11:42 Ur Leukocyte Esterase Trace (Negative) H 04/24/23 11:42 Urine WBC (Auto) 1-5 /hpf (0-5) 04/24/23 11:42 Urine RBC (Auto) 0-4 /hpf (0-4) 04/24/23 11:42 U Hyaline Cast (Auto) 10-30 /lpf (0-5) H 04/24/23 11:42 U Epithel Cells (Auto) >30 /lpf (0-5) H 04/24/23 11:42 Urine Bacteria (Auto) Negative (Negative) 04/24/23 11:42 Blood Type O Negative 04/24/23 14:20 Antibody Screen NEGATIVE 04/24/23 14:20 Impressions Abdomen/Pelvis CT 04/24/23 09:[address] WITH IV CONTRAST CT DOSE: 765.95 mGy.cm HISTORY: Acute left lower quadrant abdominal pain llq abd pain n/v, hxt hernia and endometritis w/ l TECHNIQUE: Multiaxial CT images of the abdomen and pelvis were performed following the IV administration of 93 cc of Optiray, A dose lowering technique was utilized adhering to the principles of ALARA. COMPARISON STUDY: 11/03/2017 FINDINGS: The lung bases. No free air. Unremarkable spleen, pancreas and adrenal glands. There is suggestion of fundal adenomyomatosis of the gallbladder. Indeterminate 10 mm enhancing focus in the inferior right hepatic lobe on image 28 series 2 may represent a lesion versus vascular shunting. Patent portal vein. Unremarkable kidneys. No hydronephrosis. There is moderate central thickening and enhancement of the right renal collecting system and ureter. The compressed area bladder with mild wall thickening. Hysterectomy. No abdominal aortic aneurysm or lymphadenopathy. There is suggestion of a 1.3 cm greater curvature gastric ulcer within the mid gastric body, seen best on the sagittal images measuring approximately 1.3 cm. There is associated gastric wall thickening with adjacent inflammatory stranding seen on axial image 81 series 3. No bowel obstruction or bowel wall thickening. The appendix is not visualized. No acute fracture. IMPRESSION: 1. Probable gastric ulcer with adjacent gastric wall thickening and mild perigastric inflammation. GI consultation recommended. 2. No bowel obstruction or pneumoperitoneum. 3. Mild urothelial thickening and enhancement of the right renal collecting system. Correlate with urinalysis to exclude infection. ACT 112: Negative or not required by law. The above report was generated using voice recognition software. It may contain grammatical, syntax or spelling errors. Electronically signed by: Rakesh Alvarado M.D. 04/24/2023 12:10 PM PG Care Time/CCT Total # of Minutes Spent Total Time Spent with Patient: Total time spent is greater than 50% in coordination of care (as documented) at patient's floor/unit and/or counseling patient: Coding Level of Care Code 68261 IN/OBS CONSULT LVL 4,60M Diagnoses Left upper quadrant pain R10.[address] of the abdomen R93.5
[2023-04-25] MEDS ORDERED: PROPOFOL IV EMULSION 10 MG/ML 20 ML VIAL IV ONE (10:15)
[2023-04-25] MEDS ORDERED: LIDOCAINE 2% 2 ML VIAL/AMP(20MG/ML) INFIL ONE (10:15)
[2023-04-25] MEDS ORDERED: ONDANSETRON INJ 2 MG/ML 2 ML VIAL ONE (10:28)
[2023-04-25] MEDS ORDERED: fentaNYL citrate PF 100 MCG/2 ML VIAL ONE (10:29)
--- NOTE | 2023-04-25 10:53 | GI REPORT ---
Patient Name: Rosalba Parker Procedure Date: 04/25/2023 10:31 AM Date of : 1975 Admit Type: Inpatient Age: 47 Gender: Female Attending MD: Eleazar Bojorquez MD, Procedure: Upper GI endoscopy Providers: Eleazar Bojorquez MD Referring MD: Referred Self Indications: Abdominal pain, Abnormal CT of the GI tract Medicines: Monitored Anesthesia Care Complications: No immediate complications. Estimated blood loss: None. Estimated Blood Loss: Estimated blood loss: none. Procedure: Pre-Anesthesia Assessment: - Prior Anticoagulants: The patient has taken no anticoagulant or antiplatelet agents. - ASA Grade Assessment: III - A patient with severe systemic disease. After obtaining informed consent, the endoscope was passed under direct vision. Throughout the procedure, the patient's blood pressure, pulse, and oxygen saturations were monitored continuously. The Endoscope was introduced through the mouth, and advanced to the second part of duodenum. The upper GI endoscopy was accomplished without difficulty. The patient tolerated the procedure well. Findings: LA Grade B (one or more mucosal breaks greater than 5 mm, not extending between the tops of two mucosal folds) esophagitis with no bleeding was found at the gastroesophageal junction. Biopsies were taken with a cold forceps for histology. Estimated blood loss: none. One non-bleeding large cratered gastric ulcer with no stigmata of bleeding was found in the gastric body. Biopsies were taken with a cold forceps for Helicobacter pylori testing. Estimated blood loss: none. Diffuse mild inflammation characterized by erythema was found in the stomach. The duodenal bulb and second portion of the duodenum were normal. Impression: - LA Grade B reflux esophagitis with no bleeding. Biopsied. - Non-bleeding gastric ulcer with no stigmata of bleeding. Biopsied. - Gastritis. - Normal duodenal bulb and second portion of the duodenum. Recommendation: - [facility]. - Advance diet as tolerated today. - Await pathology results. -protonix 40 mg BID for at least 8 weeks -repeat EGD in 8 weeks as an outpatient Eleazar Bojorquez MD 04/25/2023 10:53:05 AM This report has been signed electronically. Note Initiated On: 04/25/2023 10:31 AM Number of Addenda: 0 I attest to the content of the Intraoperative Record and orders documented therein, exceptions below {[id number]}
--- NOTE | 2023-04-25 12:00 | Anesthesiology Progress Note ---
Date of Service April 25, 2023 Anesthesia Post Procedure Vital Signs Vital Signs: Temp Pulse Resp BP BP Pulse Ox O2 Del Method 04/25/23 11:18 77 16 131/72 95 Room Air 04/25/23 11:03 78 16 123/81 92 Room Air 04/25/23 10:48 87 16 92/52 L 96 Room Air 04/25/23 10:10 97.7 F 74 16 135/88 93 Room Air 04/25/23 07:38 98.1 F 67 16 124/80 95 Room Air 04/25/23 04:33 97.9 F 70 18 113/72 93 Room Air 04/24/23 22:35 98.6 F 84 12 115/72 93 Room Air 04/24/23 19:00 71 17 123/82 96 Room Air 04/24/23 16:53 85 20 114/82 95 Room Air 04/24/23 16:22 76 18 120/72 95 Room Air 04/24/23 14:15 81 16 113/63 96 Room Air Pain Intensity Left Lower Abdomen: Pain Intensity: 7 Transfer of Care Handoff Completed per policy Notes Mental Status: alert / awake / arousable and participated in evaluation Patient Amnestic to Procedure: Yes Nausea / Vomiting: adequately controlled Pain: adequately controlled Airway Patency, RR, SpO2: stable & adequate BP & HR: stable & adequate Hydration State: stable & adequate Anesthetic Complications: no major complications apparent and Pt Satisfied with anesthetic care
[2023-04-25] MEDS ORDERED: cefTRIAXone SODIUM 2,000 MG in DEXTROSE 5 % MINI-B 50 ML IV SCH (13:00)
[2023-04-25] MEDS ORDERED: ACETAMINOPHEN 325 MG TAB PO PRN (20:23)
[2023-04-25] MEDS: PANTOprazole 40 MG TAB PO SCH (20:38)
[2023-04-26] MEDS: MoRPHine SULFATE 2 MG/ML CARP IV PRN (03:01)
[2023-04-26 05:16] LABS: Hematocrit (blood only) 42.3 % (37.0-47.0); Hemoglobin 13.5 g/dl (12.0-16.0); Mean Corpuscular Hemoglobin 25.5 pg (25.0-34.0); Mean Corpuscular Hgb Conc 31.9 g/dL (32.0-36.0); Mean Platelet Volume 9.6 fL (9.4-12.4); Platelet Count 342 K/uL (130-400); RDW Coefficient of Variation 12.9 % (11.5-14.5); RDW Standard Deviation 36.6 fL (36.4-46.3); Red Blood Count 5.29 M/uL (4.20-5.40); White Blood Count 5.59 K/ul (4.8-10.8)
[2023-04-26 05:32] LABS: Albumin Globulin Ratio 1.3 (0.9-2); Albumin Level 3.9 gm/dl (3.4-5.0); BUN Creatinine Ratio 13.7 (10-20); Bilirubin,Total 0.4 mg/dl (0.2-1.0); Calcium 9.3 mg/dl (8.6-10.3); Creatinine Clr Calc Pharmacy 94.9 ml/min; Est GFR (African American) 115.3 ml/min; Est GFR (Non-African American) 99.5 ml/min; Potassium 3.8 mmol/L (3.5-5.1); Total Protein 6.9 gm/dl (6.0-8.3)
[2023-04-26 05:40] LABS: Prothrombin Time 11.2 Seconds (9.0-12.0)
[2023-04-26] MEDS: PLASMA-LYTE A 1,000 ML IV SCH ×2 (05:52→09:18)
[2023-04-26] MEDS: METOCLOPRAMIDE HCL 5 MG TABLET PO PRN (08:20)
[2023-04-26] MEDS: PANTOprazole 40 MG TAB PO SCH (08:21)
--- NOTE | 2023-04-26 09:54 | Gastroenterology Progress Note ---
Date of Service April 26, 2023 Assessment & Plan (1) Left upper quadrant pain: (2) Gastric ulcer: Plan Patient is a 47 y.o. female with a history of H pylori-associated PUD admitted with severe LUQ pain, n/v and findings of probable gastric ulcer on CT a/p. -Advance diet as tolerated. -Continue Protonix 40 mg BID x 8 weeks. -Add Carafate 1 g ACHS x 10 days. -Supportive care per primary team. -Outpatient EGD in 8 weeks being arranged by our office. Admission and Anticipated Discharge Date Admission Date: April 24, 2023 Subjective Patient is status post EGD yesterday by Dr. Bojorquez with findings of gastric body ulcer without stigmata. Pathology is pending. She is tolerating a full liquid diet. Pain has reduced to a 4/10 at present. No n/v or overt GIB. PPI ggt has been stopped and she is now on BID PPI. Review of Systems Constitutional: no problem reported Gastrointestinal: as per Subjective / HPI Physical Exam Constitutional: WD/WN, vitals as above Respiratory: normal respiratory effort, lungs clear to auscultation Cardiovascular: RRR, no murmur, no edema Gastrointestinal (Abdomen): Inspection/Auscultation: normal bowel sounds Percussion/Palpation: + abdomen tender and abdomen soft; no guarding and abdomen not rigid Psychiatric: A+Ox3, euthymic affect Results & Data Results & Data Vital Signs (Past 12 Hours) Vital Signs Temp Pulse Pulse Resp BP BP Pulse Ox 04/26/23 07:51 36.7 C 75 16 130/79 96 04/26/23 07:00 73 04/25/23 21:58 85 04/25/23 22:29 74 18 119/72 94 O2 Del Method 04/26/23 07:51 Room Air 04/26/23 07:00 04/25/23 21:58 04/25/23 22:29 Room Air Diagnostic Findings Laboratory Results WBC 5.59 K/ul (4.8-10.8) 04/26/23 04:19 RBC 5.29 M/uL (4.20-5.40) 04/26/23 04:19 Hgb 13.5 g/dl (12.0-16.0) 04/26/23 04:19 Hct 42.3 % (37.0-47.0) 04/26/23 04:19 MCV 80.0 fL (80.0-100.0) 04/26/23 04:19 MCH 25.5 pg (25.0-34.0) 04/26/23 04:19 MCHC 31.9 g/dL (32.0-36.0) L 04/26/23 04:19 RDW Std Deviation 36.6 fL (36.4-46.3) 04/26/23 04:19 RDW Coeff of Miladys 12.9 % (11.5-14.5) 04/26/23 04:19 Plt Count 342 K/uL (130-400) 04/26/23 04:19 MPV 9.6 fL (9.4-12.4) 04/26/23 04:19 Immature Gran % (Auto) 0.3 % 04/25/23 07:34 Neut % (Auto) 65.5 % 04/25/23 07:34 Lymph % (Auto) 23.7 % 04/25/23 07:34 [place] % (Auto) 8.3 % 04/25/23 07:34 Eos % (Auto) 1.8 % 04/25/23 07:34 Baso % (Auto) 0.4 % 04/25/23 07:34 Neut # (Auto) 4.64 K/uL (1.40-6.50) 04/25/23 07:34 Lymph # (Auto) 1.68 K/uL (1.20-3.40) 04/25/23 07:34 [place] # (Auto) 0.59 K/uL (0.11-0.59) 04/25/23 07:34 Eos # (Auto) 0.13 K/uL (0.00-0.50) 04/25/23 07:34 Baso # (Auto) 0.03 K/uL (0.00-0.20) 04/25/23 07:34 Immature Gran # (Auto) 0.02 K/uL (0.01-0.20) 04/25/23 07:34 PT 11.2 Seconds (9.0-12.0) 04/26/23 04:19 INR 1.0 (0.9-1.1) 04/26/23 04:19 Sodium 139 mmol/L (136-145) 04/26/23 04:19 Potassium 3.8 mmol/L (3.5-5.1) 04/26/23 04:19 Chloride 101 mmol/L (98-107) 04/26/23 04:19 Carbon Dioxide 32 mmol/L (21-32) 04/26/23 04:19 Anion Gap 6 (3-11) 04/26/23 04:19 BUN 10 mg/dl (6-23) 04/26/23 04:19 Creatinine 0.73 mg/dl (0.6-1.2) 04/26/23 04:19 Est Cr Clr Drug Dosing 94.9 ml/min 04/26/23 04:19 Est GFR ( Amer) 115.3 ml/min 04/26/23 04:19 Est GFR (Non-Af Amer) 99.5 ml/min 04/26/23 04:19 BUN/Creatinine Ratio 13.7 (10-20) 04/26/23 04:19 Glucose 88 mg/dl (70-99(Fasting)) 04/26/23 04:19 Calcium 9.3 mg/dl (8.6-10.3) 04/26/23 04:19 Magnesium 2.0 mg/dl (1.7-2.4) 04/26/23 04:19 Total Bilirubin 0.4 mg/dl (0.2-1.0) 04/26/23 04:19 AST 14 U/L (13-39) 04/26/23 04:19 ALT 9 U/L (7-52) 04/26/23 04:19 Alkaline Phosphatase 107 U/L (34-104) H 04/26/23 04:19 Total Protein 6.9 gm/dl (6.0-8.3) 04/26/23 04:19 Albumin 3.9 gm/dl (3.4-5.0) 04/26/23 04:19 Globulin 3.0 gm/dl (2.5-4.0) 04/26/23 04:19 Albumin/Globulin Ratio 1.3 (0.9-2) 04/26/23 04:19 Lipase 5 U/L (11-82) L 04/24/23 10:09 Urine Color Dark Yellow 04/24/23 11:42 Urine Appearance Clear (Clear) 04/24/23 11:42 Urine pH 7.0 (4.5-7.5) 04/24/23 11:42 Ur Specific [place] 1.022 (1.000-1.030) 04/24/23 11:42 Urine Protein 1+ (Negative) H 04/24/23 11:42 Urine Glucose (UA) Negative (Negative) 04/24/23 11:42 Urine Ketones 1+ (Negative) H 04/24/23 11:42 Urine Blood Negative (Negative) 04/24/23 11:42 Urine Nitrite Positive (Negative) A 04/24/23 11:42 Urine Bilirubin Negative (Negative) 04/24/23 11:42 Urine Urobilinogen Negative (Negative) 04/24/23 11:42 Ur Leukocyte Esterase Trace (Negative) H 04/24/23 11:42 Urine WBC (Auto) 1-5 /hpf (0-5) 04/24/23 11:42 Urine RBC (Auto) 0-4 /hpf (0-4) 04/24/23 11:42 U Hyaline Cast (Auto) 10-30 /lpf (0-5) H 04/24/23 11:42 U Epithel Cells (Auto) >30 /lpf (0-5) H 04/24/23 11:42 Urine Bacteria (Auto) Negative (Negative) 04/24/23 11:42 Blood Type O Negative 04/24/23 14:20 Antibody Screen NEGATIVE 04/24/23 14:20 Impressions Abdomen/Pelvis CT 04/24/23 09:[address] WITH IV CONTRAST CT DOSE: 765.95 mGy.cm HISTORY: Acute left lower quadrant abdominal pain llq abd pain n/v, hxt hernia and endometritis w/ l TECHNIQUE: Multiaxial CT images of the abdomen and pelvis were performed following the IV administration of 93 cc of Optiray, A dose lowering technique was utilized adhering to the principles of ALARA. COMPARISON STUDY: 11/03/2017 FINDINGS: The lung bases. No free air. Unremarkable spleen, pancreas and adrenal glands. There is suggestion of fundal adenomyomatosis of the gallbladder. I ndeterminate 10 mm enhancing focus in the inferior right hepatic lobe on image 28 series 2 may represent a lesion versus vascular shunting. Patent portal vein. Unremarkable kidneys. No hydronephrosis. There is moderate central thickening and enhancement of the right renal collecting system and ureter. The compressed area bladder with mild wall thickening. Hysterectomy. No abdominal aortic aneury sm or lymphadenopathy. There is suggestion of a 1.3 cm greater curvature gastric ulcer within the mid gastric body, seen best on the sagittal images measuring approximately 1.3 cm. There is associated gastric wall thickening with adjacent inflammatory stranding seen on axial image 81 series 3. No bowel obstruction or bowel wall thickening. The appendix is not visualized. No acute fracture. IMPRESSION: 1. Probable gastric ulcer with adjacent gastric wall thickening and mild perigastric inflammation. GI consultation recommended. 2. No bowel obstruction or pneumoperitoneum. 3. Mild urothelial thickening and enhancement of the right renal collecting system. Correlate with urinalysis to exclude infection. ACT 112: Negative or not required by law. The above report was generated using voice recognition software. It may contain grammatical, syntax or spelling errors. Electronically signed by: Rakesh Alvarado M.D. 04/24/2023 12:10 PM PG Care Time/CCT Total # of Minutes Spent Total Time Spent with Patient: Total time spent is greater than 50% in coordination of care (as documented) at patient's floor/unit and/or counseling patient: Coding Level of Care Code 86904 SUB INP/OBS CARE 3/50MIN Diagnoses Left upper quadrant pain R10.12 Gastric ulcer K25.9
[2023-04-26] MEDS ORDERED: SUCRALFATE 1 GM/10 ML UDC PO ONE (10:35)
[2023-04-26] MEDS ORDERED: SUCRALFATE 1 GM/10 ML UDC PO SCH (13:00)
--- NOTE | 2023-04-26 14:06 | Electrocardiogram Report ---
Test Reason : Blood Pressure : / mmHG Vent. Rate : 078 BPM Atrial Rate : 078 BPM P-R Int : 118 ms QRS Dur : 080 ms QT Int : 396 ms P-R-T Axes : 057 059 045 degrees QTc Int : 451 ms Normal sinus rhythm Normal ECG When compared with ECG of 07-NOV-2017 05:22, No significant change was found Confirmed by Narciso Bowden ([id number]) on 04/26/2023 2:05:43 PM Referred By: REFERRED SELF Confirmed By:Narciso Bowden
--- NOTE | 2023-04-26 14:41 | Discharge Summary ---
Date of Service April 26, 2023 Admission HPI Per Admitting Provider Rosalba is a 47 year old female with a PMH significant for chronic migraines, anxiety, and depression who presented to the [facility] ED on 04/24 with complaints of vomiting, LLQ abdominal pain, and urinary symptoms. She remained stable in the ED. Labs were significant for a CBC with WBC WNL but hem- concentrated, CMP WNL, and UA consistent with UTI. CT of the abd/pelvis w/IV con was read as 1. Probable gastric ulcer with adjacent gastric wall thickening and mild perigastric inflammation. GI consultation recommended. 2. No bowel obstruction or pneumoperitoneum. 3. Mild urothelial thickening and enhancement of the right renal collecting system. Correlate with urinalysis to exclude infection. Prior to admission the patient was given 15 mg IV toradol. 10 mg IV reglan, 8 mg IV Zofran, 6 mg IV morphine, 40 mg IV pantoprazole, 2L NSS bolus, and a dose of Ceftriaxone. At the time of the exam the patient was sitting in bed in no acute distress with her sitting bedside. She states that she first started to develop urinary symptoms such as dysuria and increased urinary frequency on 04/19. She was prescribed a 3 day course of Ciprofloxacin by here PCP on 04/20 and confirms she completed the course. Over the weekend the patient began to experience LLQ abdominal pain with recurrent nausea and vomiting. The abdominal pain has stayed in the LLQ and has not radiated. She and her state that she has had 3 episodes of maroon colored emesis today, they deny seeing blood clots or bright red blood in her emesis. When asked, she has a long history of refulx and was previously admitted to [facility] in 2018 due to acute blood loss anemia from a gastric ulcer. She states that she received 2 units of PRBC's during that admission. She states she underwent EGD during that admission which revealed moderately severe esophagitis and two non-obstructing, oozing centered gastric ulcers without signs of perforation. She underwent successful epinephrine injection for hemostasis. Biopsies were positive for H. Pylori, the patient was treated with Pepto-bismol, protonix, Doxycycline, and flagyl. She denies recent fever, chills, chest pain, bright red emesis, hematuria, diarrhea, blood stool/melena, and recent trauma. When asked, she no longer uses NSAID's since her last upper GI bleed, she does not use alcohol consistently, and does not use tobacco products. She does get reflux symptoms frequency which are exacerbated when eating spicy food. She has not had anything to eat or drink today. Please refer to Dr. Loo's attestation for any changes to the treatment plan Principal Diagnosis Gastric ulcer biopsies taken esophagitis Discharge Exam pt is awake and alert, had some epigastic discomfort Discharge Data Allergies Allergy/AdvReac Type Severity Reaction Status Date / Time Sulfa (Sulfonamide Allergy Mild vomit/diarh Verified 10/26/22 15:06 Antibiotics) ea sulfamethoxazole Allergy Mild vomit/diarh Verified 10/26/22 15:06 ea trimethoprim Allergy Mild vomit/diarh Verified 10/26/22 15:06 ea Penicillins Allergy Unknown hives Verified 10/26/22 15:06 latex AdvReac Intermediate LOCAL Verified 10/26/22 15:06 RASH, ITCHINESS clarithromycin AdvReac Mild vomit Verified 10/26/22 15:06 prochlorperazine AdvReac Mild seizure Verified 10/26/22 15:06 amoxicillin AdvReac Verified 10/26/22 15:06 eletriptan [From Relpax] AdvReac made head Verified 10/26/22 15:06 feel "fuzzy", had blurry vision and didn't help zolmitriptan [From Zomig] AdvReac made head Verified 10/26/22 15:06 feel "fuzzy", had blurry vision and didn't help Consultations 04/24/23 12:49 ED Decision to Admit Stat 04/24/23 13:30 Consult Gastroenterology Routine Procedures Performed Operation Date: 04/25/23 16:30 Actual Procedures p EGD Biopsy Cytology - Eleazar Bojorquez MD Ordered Studies 04/24/23 09:40 CT abd pelvis IV con only Stat Hospital Course (1) Gastric ulcer: Presented to the ED with vomiting, LLQ abd pain, and urinary symptoms, CT of the abd/pelvis w/IV con shows possible gastric ulcer without perforation EGD shows LA grade B reflux esophagitis no bleeding no bleeding gastric ulcer with no stigmata of bleeding biopsied normal duodenal bulb recommendation for 8 weeks of twice daily Protonix and follow-up with outpatient GI for repeat endoscopy, and review biopsies -tolerated advancement of diet (2) Pyelonephritis: -Has been having urinary symptoms since 04/19 -Did complete 3 days of Ciprofloxacin starting 04/20 by her PCP urine cultures with less than 1000 colonies blood cultures are negative to date, will not d/c on antibiotics Total Time Total Time Spent Total Time Spent (In Minutes): discharge 30 including 2 visits with the patient to recheck her in the afternoon after she ate lunch Discharge Plan Discharge Items Patient Disposition: Home - Self-Care Reason For Visit: GASTRIC ULCER, PYELONEPHRITIS Discharge Diagnosis: gastric ulcer esophagitis Activity: Resume your previous activity Non-emergency contact: Primary Care Provider and Sales Market Leader Call non-emergency contact if: your symptoms worsen Follow-up/Referrals: Leonardo Bella MD [Primary Care Provider] - 05/03/23 3:00 pm Diet: Regular Addtl Attending Provider Instructions: Most peptic ulcers will heal within 4 to 6 weeks after treatment begins. Do not stop taking the medicines you have been prescribed, even if symptoms go away quickly. Diet and Lifestyle People with PUD should eat a healthy balanced diet. It does not help to eat more often or increase the amount of milk and dairy products you consume. These changes may even cause more stomach acid. * Avoid foods and drinks that cause discomfort for you. For many people these include alcohol, coffee, caffeinated soda, fatty foods, chocolate, and spicy foods. * Avoid eating late night snacks. Other things you can do to ease your symptoms and help healing include: * If you smoke or chew tobacco, try to quit. Tobacco will slow the healing of your ulcer and increase the chance that the ulcer will come back. Talk to your doctor aboutgetting help for quitting tobacco * Try to reduce your stress level and learn ways to better manage stress. Avoid drugs such as aspirin, ibuprofen (Advil, Motrin), or naproxen (Aleve, Naprosyn). Take acetaminophen (Tylenol) to relieve pain. Take all medicines with plenty of water. Follow-up You will have follow-up visits to see how your ulcer is healing especially if the ulcer was in the stomach. Your provider may want to perform an upper endoscopy after treatment if the ulcer was in your stomach. This is to make sure healing has taken place and there are no signs of cancer. You will also need follow-up testing to check that theH pyloribacteria testing those results are not avialble at the time of discharge When to Call the Doctor Get medical help right away if you: * Develop sudden, sharp abdominal pain * Have a rigid, hard abdomen that is tender to the touch * Have symptoms of shock, such as fainting, excessive sweating, or confusion * Vomit blood * See blood in your stool (maroon, dark, or tarry black stools) Call your provider if: * You feel dizzy or light-headed * You have ulcer symptoms * You feel full after eating a small meal portion * You experience unintentional weight loss * You are vomiting * You lose your appetite Addtl Materials Management Supervisor Provider Instructions: your urine test done during this admission did not show infection Pending Studies at Discharge: Yes Studies:: stomach biopsy Stand-Alone Forms: My [facility] [employer], Smoking Cessation Medications and DC Order Prescriptions: New pantoprazole 40 mg Tablet,Delayed Release (Dr/Ec) 40 mg PO BID Qty: 90 4RF sucralfate [Carafate] 1 gram tablet 1 g PO ACHS Qty: 28 0RF Continued ondansetron 4 mg tablet,disintegrating 4 mg PO TID PRN (Reason: nausea and vomiting) Qty: 30 1RF Ubrelvy 100 mg tablet 100 mg PO ONCE 30 Days Qty: 10 2RF Rx Instructions: Take 1 tablet at first sign of a migraine. May repeat dose after 2 hours if pain persists. No more than 200mg/24 hours. multivitamin Tablet 1 tab PO DAILY melatonin 10 mg capsule 10 mg PO HS PRN (Reason: Sleep) Botox 200 unit recon soln See Rx Instructions IM .COMPLEX Qty: 1 3RF Rx Instructions: 155 UNITS IM IN THE FACE AND NECK MUSCLES EVERY 12 WEEKS PER MIGRAINE PROTOCOL Discharge Orders: Discharge Order (Routine); Ordered 04/26/23 Ordered By: Alon Curiel/Other Patient Handouts: GERD Lifestyle Changes Admission Data Admit Date/Time: 04/24/23 13:16 Attending Provider: Alon Bettencourt Admit Provider: Joseph Loo Primary Care Provider: Leonardo Bella V. Other Providers: Joseph Loo ; Eleazar Bojorquez Coding Level of Care Code 57822 INP/OBS DISCH >30 MIN Diagnoses Gastric ulcer K25.9 Pyelonephritis N12
== END 2023-04-26 15:24 | disposition home or self-care (01) ==
LOC: EDINP 08:53 → ED 08:53 → SUATTDRO 13:16 → 2W 21:24